=== PATIENT | male | born 1945 | race Caucasian/White ===

== ENCOUNTER 2020-11-03 08:57 | Emergency (ER) | payer OTHER ==
--- OUTSIDE RECORDS SUMMARY | 2020-11-03 09:00 | XMS REPORT | Continuity of Care Document ---
:[address] [facility] t Address [address] [place] [address] Care Team Providers Name Role Phone Jorge Boykin Primary Care Physician Rema RN Attending Clinician Unavailable Jose FORD, Gene Attending Clinician Payers Payer Name Policy Type Policy Effective Date Expiration Source Number Date MEDICAREMEDICARE PART [id number] 2009 Un iversity of A & 00:00:00 [place] [facility] [id number] 2009- [employer] [id number] BRIEN PEREZ [id number] Problems Condition Condition Condition Status Onset Resolution Last Treating Co mments Source Name Details Category Date Date Treatment Clinician Date PAD PAD Disease Active Univers (periphera (periphera 2-06 it y of l artery l artery 00:00: [place] disease) disease) 00 Medica l Branch CAD CAD Disease Active Univers (coronary (coronary 2-06 ity of artery artery 00:00: [place] disease) disease) 00 Medica l Branch HTN HTN Disease Active Univers (hypertens (hypertens 2-06 it y of ion) ion) 00:00: [place] 00 Medical Branch Asymptomat Asymptomat Disease Active U nivers ic ic 2-06 ity of varicose varicose 00:00: [place] veins veins 00 Medical Branch Allergies, Adverse Reactions, Alerts This patient has no known allergies or adverse reactions. Social History Social Habit Start Date Stop Date Quantity Comments Source History of tobacco Cigarette Smoker University of use [facility] Exposure to Not sure University of SARS-CoV-2 (event) [facility] Cigarettes smoked 2020-11-02 2020-11-02 Univers ity of current (pack per 00:00:00 00:00:00 [place] ) - Reported Branch Tobacco use and 2020-11-02 2020-11-02 Never used Universit y of exposure 00:00:00 00:00:00 [facility] Alcohol intake 2020-11-02 2020-11-02 Current University of 00:00:00 00:00:[address] non-[address]inker of [facility] alcohol Branch (finding) Sex Ass[birth year] Universit y of 00:00:00 00:00:00 [facility] Smoking Status Start Date Stop Date Source Current every day smoker 2020-11-02 00:00:00 Uni versity of [facility] Medications Ordered Filled Start Stop Current Ordering Indication Dosage Frequency Signature Comments Components Source Medication Medication Date Date Medication? Clinician (SIG) Name Name tamsulosin Yes Take by Uni vers 0.4 mg 24 5-04 mouth ity of hr capsule 18:42: daily. [address] traZODone Yes 50mg Take 50 mg Un melissa 50 mg 5-04 by mouth ity of tablet 18:42: at [place] [address] bedtime. Medical Branch ASPIRIN Yes 1{tbl} Take 1 Univer s (ASPIR-81 5-04 tablet by ity o f ORAL) 18:31: mouth [place] 07 daily. Medical Branch gabapentin 2020- Yes Tarsal 100mg Take 1 U nivers 100 mg 5-04 06-04 tunnel capsule by ity of capsule 00:00: 04:59 syndrome of mouth 3 [place] 00 :00 both lower (three) Medica l extremities times Branch daily for 30 days. donepeziL Yes 10mg Take 10 mg Un melissa 10 mg 4-24 by mouth ity of tablet 00:00: daily. [place] [facility] memantine Yes 10mg Take 10 mg Un melissa 10 mg 4-24 by mouth ity of tablet 00:00: daily. Medical Branch cilostazol Yes 100mg Take 100 Un melissa 100 mg 6-26 mg by ity of tablet 15:56: mouth 2 [place] 01 (two) Medical times Branch daily. hydroCHLORO Yes 1{capsu Take 1 U nivers thiazide 2-03 le} capsule by ity o f 12.5 mg 00:00: mouth [place] capsule 00 daily. Medical Branch quinapril Yes 1{tbl} Take 1 Univ ers 40 mg 2-03 tablet by ity of tablet 00:00: mouth [place] 00 daily. Medical Branch sotalol 80 Yes 1.5{tbl Take 1.5 Univers mg tablet 2-03 } tablets by ity of 00:00: mouth [place] 00 daily. Medical Branch LORazepam 2 Yes 1{tbl} Take 1 Un melissa mg tablet 1-29 tablet by ity o f 00:00: mouth as [place] 00 needed. Medical Branch ranitidine 2016-06 Yes 1{tbl} Take 1 Uni vers 300 mg 2-04 tablet by ity of tablet 00:00: mouth [place] 00 daily. Medical Branch allopurinol 2016-06 Yes 1{tbl} Take 1 Un melissa 300 mg 1-21 tablet by ity of tablet 00:00: mouth [place] 00 every Medical other day. Branch Procedures This patient has no known procedures. Plan of Care Planned Activity Planned Date Details Comments Source Future Scheduled 2021-02-[address] [facility] Test 00:00:00 (Season Ended) [code Medical Branch = INFLUENZA VACCINE (Season Ended)] Future Scheduled 2009 [facility] Test 00:[facility]:00 Wellness Visit Medical [facility] (procedure) [code = [id number]] Future Scheduled 2009 [facility] [place] [facility]00 65+ (1 of 1 - PPSV23) Medica l Branch [code = PNEUMOCOCCAL VACCINES 65+ (1 of 1 - PPSV23)] Future Scheduled 1999 Screening for [facility] Test 00:00:00 malignant neoplasm of Medica l Branch lung (procedure) [code = [id number]] Future Scheduled 1994 [facility] [place] [facility]:00 Vaccine (SHINGRIX) (1 Medica l Branch of 2) [code = Zoster Recombinant Vaccine (SHINGRIX) (1 of 2)] Future Scheduled 1963 DTaP,Tdap,and Td [facility] of [place] Test 00:00:00 Vaccines (1 - Tdap) Medical Branch [code = DTaP,Tdap,and Td Vaccines (1 - Tdap)] Future Scheduled 1962 Hepatitis C screening [facility] [place] Test 00:00:00 (procedure) [code = Medical Branch [id number]] Future Scheduled 1960 SARS-CoV-2 (COVID-19) [facility] [place] Test 00:00:00 Vaccine (1) [code = Medical Branch SARS-CoV-2 (COVID-19) Vaccine (1)] Future Scheduled 1956 Depression screening [facility] [place] Test 00:00:00 (procedure) [code = Medical Branch [id number]] Encounters Start End Encounter Admission Attending Care Care Encounter Source Date/Time Date/Time Type Type Clinicians Facility Department ID 2020-11-03 2020-11-03 Nurse JONNY Hodgson [id number] 00:00:00 00:00:00 Triage Laura DEL VALLE [id number] [facility] [id number] 2020-10-31 2020-10-31 Office MERCEDES Garcia [id number] 13:14:24 15:07:14 Visit Bib De Anda [id number] [place] [id number] Professalexandro [id number] [facility] Building Results This patient has no known results.
--- NOTE | 2020-11-03 09:59 | RAD REPORT ---
EXAM DESCRIPTION: CT - Head Brain Wo Cont - 11/03/2020 9:47 am CLINICAL HISTORY: Visual disturbance COMPARISON: 2017 TECHNIQUE: Computed axial tomography of the head was obtained. IV contrast was not requested. All CT scans are performed using dose optimization technique as appropriate and may include automated exposure control or mA/KV adjustment according to patient size. FINDINGS: An intracranial bleed is not seen . The ventricles are normal in caliber. No extra-axial fluid collection is noted. Mild low-density areas within periventricular, deep and subcortical white matter likely represent is chemic changes secondary to small vessel disease. Fluid within the sinuses/ mastoids is not seen. Mucus retention cysts right maxillary sinus IMPRESSION: No acute intracranial abnormality is seen. If patient's symptoms persist MRI of the bra in would be recommended.
[2020-11-03] MEDS ORDERED: FOLIC ACID 5 MG/ML VIAL ONE (10:10)
[2020-11-03] MEDS ORDERED: NA CHLORIDE 0.9% 1,000 ML ONE (10:10)
[2020-11-03 10:40] LABS: Absolute Lymphocytes (CBC) 2.1 K/uL (0.7-4.9); Hematocrit 44.5 % (39.6-49.0); Lymphocytes % 27.4 % (15.3-44.8); MPV 7.1 fL (7.6-11.3); RBC Red Blood Cell Count 4.25 M/uL (4.33-5.43)
--- NOTE | 2020-11-03 10:44 | RAD REPORT ---
EXAM DESCRIPTION: MRI - Brain Wo Cont - 11/03/2020 10:24 am CLINICAL HISTORY: Vision loss COMPARISON: Head CT November 03, 2020 TECHNIQUE: Axial, sagittal, and coronal magnetic images of the brain were obtained. Contrast was not requested FINDINGS: Mild to moderate signal is present within periventricular and deep white matter bilaterall y probably ischemic changes secondary to small vessel disease. Mild signal is present within the hippocampal gyri bilaterally which may indicate a mild mesial tempo ral sclerosis. Diffusion-weighted/ADC mapping does not reveal evidence of acute infarction. The ventricles are normal caliber. An extra-axial fluid collection is not present Fluid within the sinuses/mastoids is not noted. Mucus retention cysts right maxillary sinus IMPRESSION: No acute intracranial abnormality is displayed
[2020-11-03 11:00] LABS: Protime INR 1.08
[2020-11-03 11:05] LABS: ALT/SGPT 29 U/L (12-78); AST/SGOT 20 U/L (15-37); Albumin 3.4 g/dL (3.4-5.0); Alkaline Phosphatase 106 U/L (45-117); BUN Blood Urea Nitrogen 20 mg/dL (7-18); Bicarbonate 30 mmol/L (21-32); Bilirubin Direct 0.2 mg/dL (0-0.2); Bilirubin Total 1.2 mg/dL (0.2-1.0); Glucose Level 96 mg/dL (74-106); Magnesium 2.2 mg/dL (1.8-2.4); NT PRO-BNP 695 pg/mL (<450); Protein, Total 7.1 g/dL (6.4-8.2); Sodium Level 141 mmol/L (136-145); Troponin (Emerg Dept Use Only) < 0.02 ng/mL (0.0-0.045)
--- NOTE | 2020-11-03 12:15 | RAD REPORT ---
EXAM DESCRIPTION: Jeremiah Single View11/03/2020 11:17 am CLINICAL HISTORY: CVA COMPARISON: 2016 FINDINGS: Lungs are hyperaerated. The lungs appear clear of acute infiltrate. The heart is probably upper limits normal size IMPRESSION: No acute abnormalities displayed
--- NOTE | 2020-11-03 12:35 | ER ---
Nurse's Notes [facility] Name: Sergio Ramirez Age: 75 yrs Sex: Male : 1945 Arrival Date: 11/03/2020 Time: 09:02 Bed 17 Private MD: Diagnosis: Blindness, left eye, normal vision right eye;Essential (primary) hypertension Presentation: 11/03 09:25 Chief complaint: Spouse and/or significant other states: Unable to see out of L eye ss that began around 0830- 9 PM yesterday evening. Denies headache/ weakness. Coronavirus screen: Client denies travel out of the [place] in the last 14 days. Ebola Screen: Patient denies exposure to infectious person. Patient denies travel to an Ebola-affected area in the 21 days before illness onset. Initial Sepsis Screen: Does the patient meet any 2 criteria? No. Patient's initial sepsis screen is negative. Does the patient have a suspected source of infection? No. Patient's initial sepsis screen is negative. Risk Assessment: Do you want to hurt yourself or someone else? Patient reports no desire to harm self or others. Onset of symptoms was November 02, 2020 at 08:30. 09:25 Method Of Arrival: Ambulatory ss 09:25 Acuity: GENESIS 3 ss Historical: - Allergies: 09:29 No Known Allergies; ss - PMHx: 09:29 Gout; Hyperlipidemia; Hypertension; ss - PSHx: 09:29 cardiac stents; ss - Immunization history:: Adult Immunizations up to date. - Social history:: Smoking status: Patient reports the use of cigarette tobacco products, 2 cigarettes/ day . Screenin:32 Abuse screen: Denies threats or abuse. Nutritional screening: No deficits noted. ll1 Tuberculosis screening: No symptoms or risk factors identified. Fall Risk Secondary diagnosis (15 points) vision impairment. IV access (20 points). Gait- Impaired (20 pts.). Total Yost Fall Scale indicates High Risk Score (45 or more points). Fall prevention measures have been instituted. Side Rails Up X 2 Placed Close to Nursing Station Frequent Obs/Assessments Occuring Family Present and informed to notify staff if the need to leave the bedside As available patient and family educated on Fall Prevention Program and Strategies. Assessment: 10:33 General: Appears in no apparent distress. Behavior is calm, cooperative, appropriate ll1 for age. Pain: Denies pain. EENT: Eyes no vision L eye. Reports no vision L eye. 11:30 Reassessment: No changes from previously documented assessment. Patient and/or family ll1 updated on plan of care and expected duration. Pain level reassessed. 12:30 Reassessment: No changes from previously documented assessment. Patient and/or family ll1 updated on plan of care and expected duration. Pain level reassessed. Vital Signs: 09:25 BP 125 / 79; Pulse 57; Resp 18; Temp 97.9(TE); Pulse Ox 98% on R/A; Weight 88.45 kg; ss Height 6 ft. 4 in. (193.04 cm); Pain 0/10; 12:56 BP 183 / 82; Pulse 56; Resp 17; Pulse Ox 98% ; Pain 0/10; ll1 09:25 Body Mass Index 23.74 (88.45 kg, 193.04 cm) ED Course: 09:02 Patient arrived in ED. mr 09:28 Triage completed. ss 09:29 Arm band placed on left wrist. ss 09:30 Leah Wellington, BOUCHRA is Primary Nurse. ll1 09:33 Ken Dominguez MD is Attending Physician. dariela 09:47 CT Head Brain wo Cont In Process Unspecified. EDMS 10:15 Brain Wo Cont In Process Unspecified. EDMS 10:32 Patient has correct armband on for positive identification. Bed in low position. Call ll1 light in reach. Side rails up X 1. lead developer on. Pulse ox on. NIBP on. 10:34 Inserted saline lock: 20 gauge in right antecubital area, using aseptic technique. mt Blood collected. 11:16 XRAY Chest (1 view) In Process Unspecified. EDMS 11:56 Basic Metabolic Panel Sent. sv 11:57 CBC with Diff Sent. sv 11:57 LFT's Sent. sv 12:34 Walter Galarza MD is Referral Physician. dariela 12:55 IV discontinued, intact, bleeding controlled, No redness/swelling at site. Pressure ll1 dressing applied. 12:57 No provider procedures requiring assistance completed. ll1 Administered Medications: 10:35 Drug: foLIC Acid 1 mg Route: IVPB; Site: right antecubital; ll1 12:52 Follow up: Response: No adverse reaction; IV Status: Completed infusion; IV Intake: ll1 0.2ml 10:35 Drug: NS 0.9% 1000 ml Route: IV; Rate: 1 bolus; Site: right antecubital; ll1 12:52 Follow up: Response: No adverse reaction; RASS: Alert and Calm (0); IV Status: ll1 Completed infusion; IV Intake: 1000ml 12:50 Drug: Aspirin Chewable Tablet 324 mg Route: PO; ll1 12:53 Follow up: Response: No adverse reaction ll1 Intake: 12:52 IV: 0ml; Total: 0ml. ll1 12:52 IV: 1000ml; Total: 1000ml. ll1 Outcome: 12:35 Discharge ordered by . dariela 12:57 Discharged to home ambulatory. ll1 12:57 Condition: stable 12:57 Discharge instructions given to patient, family, Instructed on discharge instructions, follow up and referral plans. Demonstrated understanding of instructions, follow-up care. 12:57 Patient left the ED. 1 Signatures: Dispatcher [employer] Maggie Jonas RN RN sv Anderson, Corey, MD MD cha Rivera, Maggie Nunes, Alison Carcamo RN, mt, Lynsay, RN RN 1
--- NOTE | 2020-11-03 12:35 | EDPHYS ---
Physician Documentation [facility] Name: Sergio Ramirez Age: 75 yrs Sex: Male : 1945 Arrival Date: 11/03/2020 Time: 09:02 Bed 17 Private MD: MIGDALIA Physician Ken Dominguez HPI: 11/03 12:19 This 75 yrs old Male presents to ER via Ambulatory with complaints of High dariela Blood Pressure, Eye Problem. 12:19 The patient has elevated blood pressure and discovered this at home. Onset: The dariela symptoms/episode began/occurred 1 day(s) ago. Modifying factors: The symptoms are aggravated by NOTHING, The symptoms are alleviated by NOTHING. Associated signs and symptoms: The patient has no apparent associated signs or symptoms. Severity of symptoms: At its worst the blood pressure was mild, in the emergency department the blood pressure is unchanged. The patient has not experienced similar symptoms in the past. Historical: - Allergies: : No Known Allergies; ss - PMHx: : Gout; Hyperlipidemia; Hypertension; ss - PSHx: : cardiac stents; ss - Immunization history:: Adult Immunizations up to date. - Social history:: Smoking status: Patient reports the use of cigarette tobacco products, 2 cigarettes/ day . ROS: 12:21 Constitutional: Negative for fever, chills, and weight loss, ENT: Negative for injury, dariela pain, and discharge, Neck: Negative for injury, pain, and swelling, Cardiovascular: Negative for chest pain, palpitations, and edema, Respiratory: Negative for shortness of breath, cough, wheezing, and pleuritic chest pain, Abdomen/GI: Negative for abdominal pain, nausea, vomiting, diarrhea, and constipation, Back: Negative for injury and pain, : Negative for injury, bleeding, discharge, and swelling, MS/Extremity: Negative for injury and deformity, Skin: Negative for injury, rash, and discoloration, Neuro: Negative for headache, weakness, numbness, tingling, and seizure, Psych: Negative for depression, anxiety, suicide ideation, homicidal ideation, and hallucinations, Allergy/Immunology: Negative for hives, rash, and allergies, Endocrine: Negative for neck swelling, polydipsia, polyuria, polyphagia, and marked weight changes, Hematologic/Lymphatic: Negative for swollen nodes, abnormal bleeding, and unusual bruising. 12:21 Eyes: Positive for vision loss. Exam: 12:21 Constitutional: This is a well developed, well nourished patient who is awake, alert, dariela and in no acute distress. Head/Face: Normocephalic, atraumatic. Eyes: Pupils equal round and reactive to light, extra-ocular motions intact. Lids and lashes normal. Conjunctiva and sclera are non-icteric and not injected. Cornea within normal limits. Periorbital areas with no swelling, redness, or edema. ENT: Nares patent. No nasal discharge, no septal abnormalities noted. Tympanic membranes are normal and external auditory canals are clear. Oropharynx with no redness, swelling, or masses, exudates, or evidence of obstruction, uvula midline. Mucous membranes moist. Neck: Trachea midline, no thyromegaly or masses palpated, and no cervical lymphadenopathy. Supple, full range of motion without nuchal rigidity, or vertebral point tenderness. No Meningismus. Chest/axilla: Normal chest wall appearance and motion. Nontender with no deformity. No lesions are appreciated. Cardiovascular: Regular rate and rhythm with a normal S1 and S2. No gallops, murmurs, or rubs. Normal PMI, no JVD. No pulse deficits. Respiratory: Lungs have equal breath sounds bilaterally, clear to auscultation and percussion. No rales, rhonchi or wheezes noted. No increased work of breathing, no retractions or nasal flaring. Abdomen/GI: Soft, non-tender, with normal bowel sounds. No distension or tympany. No guarding or rebound. No evidence of tenderness throughout. Back: No spinal tenderness. No costovertebral tenderness. Full range of motion. Male : Normal genitalia with no discharge or lesions. Skin: Warm, dry with normal turgor. Normal color with no rashes, no lesions, and no evidence of cellulitis. MS/ Extremity: Pulses equal, no cyanosis. Neurovascular intact. Full, normal range of motion. Neuro: Awake and alert, GCS 15, oriented to person, place, time, and situation. Cranial nerves II-XII grossly intact. Motor strength 5/5 in all extremities. Sensory grossly intact. Cerebellar exam normal. Normal gait. Psych: Awake, alert, with orientation to person, place and time. Behavior, mood, and affect are within normal limits. Vital Signs: 09:25 BP 125 / 79; Pulse 57; Resp 18; Temp 97.9(TE); Pulse Ox 98% on R/A; Weight 88.45 kg; ss Height 6 ft. 4 in. (193.04 cm); Pain 0/10; 12:56 BP 183 / 82; Pulse 56; Resp 17; Pulse Ox 98% ; Pain 0/10; ll1 09:25 Body Mass Index 23.74 (88.45 kg, 193.04 cm) MDM: 09:35 Patient medically screened. dariela 12:37 Differential diagnosis: hypertensive crisis, CVA, intracerebral hemorrhage. Data dariela reviewed: vital signs, nurses notes, lab test result(s), EKG, radiologic studies, CT scan, MRI. Data interpreted: security monitor: rate is 57 beats/min, rhythm is regular, Pulse oximetry: on room air is 98 %. Test interpretation: by ED physician or midlevel provider: ECG, plain radiologic studies. Counseling: I had a detailed discussion with the patient and/or guardian regarding: the historical points, exam findings, and any diagnostic results supporting the discharge/admit diagnosis, lab results, radiology results, the need for outpatient follow up, for definitive care, an opthalmologist. 12:39 Physician consultation: Walter Galarza MD and will see patient in office, later today. [facility] 11/03 09:33 Order name: Basic Metabolic Panel 11/03 09:33 Order name: CBC with Diff 11/03 09:33 Order name: LFT's 11/03 09:33 Order name: Magnesium; Complete Time: 11:58 11/03 09:33 Order name: NT PRO-BNP; Complete Time: 11:58 11/03 09:33 Order name: PT-INR; Complete Time: 11:58 11/03 09:33 Order name: Troponin (emerg Dept Use Only); Complete Time: 11:58 11/03 09:33 Order name: Basic Metabolic Panel; Complete Time: 11:58 EDKS 11/03 09:33 Order name: CBC with Automated Diff; Complete Time: 11:58 EDKS 11/03 09:33 Order name: Liver (Hepatic) Function; Complete Time: 11:58 EDKS 11/03 12:23 Order name: Sed Rate [facility] 11/03 12:23 Order name: CRP [facility] 11/03 12:23 Order name: Sedimentation Rate, Estephaniaren EDKS 11/03 12:23 Order name: C-Reactive Protein EDKS 11/03 09:33 Order name: XRAY Chest (1 view) 11/03 09:33 Order name: EKG; Complete Time: 09:34 ss 11/03 09:33 Order name: Cardiac monitoring; Complete Time: 10:58 ss 11/03 09:33 Order name: EKG - Nurse/Tech; Complete Time: 10:58 ss 11/03 09:33 Order name: IV Saline Lock; Complete Time: 10:35 ss 11/03 09:33 Order name: Labs collected and sent; Complete Time: 10:35 ss 11/03 09:33 Order name: O2 Per Protocol; Complete Time: 09:47 ss 11/03 09:33 Order name: O2 Sat Monitoring; Complete Time: 09:47 ss 11/03 09:33 Order name: CT Head Brain wo Cont; Complete Time: 10:42 ss 11/03 10:05 Order name: Brain Wo Cont; Complete Time: 10:52 EDMS Administered Medications: 10:35 Drug: foLIC Acid 1 mg Route: IVPB; Site: right antecubital; ll1 12:52 Follow up: Response: No adverse reaction; IV Status: Completed infusion; IV Intake: ll1 0.2ml 10:35 Drug: NS 0.9% 1000 ml Route: IV; Rate: 1 bolus; Site: right antecubital; ll1 12:52 Follow up: Response: No adverse reaction; RASS: Alert and Calm (0); IV Status: ll1 Completed infusion; IV Intake: 1000ml 12:50 Drug: Aspirin Chewable Tablet 324 mg Route: PO; ll1 12:53 Follow up: Response: No adverse reaction ll1 Disposition: 11/03/20 12:35 Discharged to Home. Impression: Blindness, left eye, normal vision right eye, Essential (primary) hypertension. - Condition is Stable. - Discharge Instructions: Hypertension, Visual Disturbances, Hypertension, [id number], Managing Your Hypertension. - Medication Reconciliation Form, Thank You Letter, Antibiotic Education, Prescription Opioid Use form. - Follow up: Walter Galarza MD; When: Upon discharge from the Emergency Department; Reason: Recheck today's complaints, Continuance of care, Re-evaluation by your physician. - Problem is new. - Symptoms are unchanged. Signatures: Dispatcher [employer] [facility] Ken Dominguez MD MD cha Smirch, Shelby, RN RN ss Leah Wellington RN RN ll1 Corrections: (The following items were deleted from the chart) 10:05 09:35 MR STROKE PROTOCOL+MRI.RAD.BRZ ordered. [facility] 12:57 12:35 11/03/2020 12:35 Discharged to Home. Impression: Blindness, left eye, normal ll1 vision right eye; Essential (primary) hypertension. Condition is Stable. Forms are Medication Reconciliation Form, Thank You Letter, Antibiotic Education, Prescription Opioid Use. Follow up: Walter Galarza; When: Upon discharge from the Emergency Department; Reason: Recheck today's complaints, Continuance of care, Re-evaluation by your physician. Problem is new. Symptoms are unchanged. dariela
[2020-11-03] MEDS ORDERED: ASPIRIN 81 MG CHEWABLE TABLET ONE (13:02)
[2020-11-03 13:04] VITALS: TEMP 97.9; O2SAT 98
[2020-11-03 13:06] VITALS: BP 183/82
--- NOTE | 2020-11-04 10:39 | EKG ---
Test Date: 2020-11-03 Test Time: 10:49:40 Religious Education Coordinator: JESSICA MEASUREMENT RESULTS: Intervals: Rate: 53 NJ: 182 QRSD: 104 QT: 500 QTc: 469 [place]: P: 74 NJ: 182 QRS: 47 T: 24 INTERPRETIVE STATEMENTS: Sinus bradycardia with occasional premature ventricular complexes Nonspecific ST abnormality Abnormal ECG Compared to ECG 11/03/2020 10:49:18 Ventricular premature complex(es) now present ST (T wave) deviation now present Electronically Signed On 11-04-20 10:36:49 CDT by Sherwin Smith
== END 2020-11-03 12:57 | disposition home or self-care (01) ==
LOC: ER 08:57
DX: I10 Essential (primary) hypertension (principal); F17.210 Nicotine dependence, cigarettes, uncomplicated; Z95.818 Presence of other cardiac implants and grafts
CPT/HCPCS: 96365; 93005; 85025; 80048; 36415; 83735; 85610; 80076; 85652; 84484; 83880; 86140; 70450; 71045; 70551; 99284; 96366; J7030; 93880; 96360; U0003

== ENCOUNTER 2020-11-03 18:24 | Emergency (ER) | payer OTHER ==
--- OUTSIDE RECORDS SUMMARY | 2020-11-03 18:40 | XMS REPORT | Continuity of Care Document ---
:1945 Author Organization [facility] t Address [address] [place] [address] Care Team Providers Name Role Phone Jorge Boykin Primary Care Physician Rema RN Attending Clinician Unavailable Jose FORD, Gene Attending Clinician Payers Payer Name Policy Type Policy Effective Date Expiration Source Number Date MEDICAREMEDICARE PART [id number] 2009 Un iversity of A & 00:00:00 [facility] [id number] 2009- formerly [facility] [phone]. [id number] [id number] Problems Condition Condition Condition Status Onset Resolution Last Treating Co mments Source Name Details Category Date Date Treatment Clinician Date PAD PAD Disease Active Univers (periphera (periphera 2-06 it y of l artery l artery 00:00: [place] disease) disease) 00 Medica l Branch CAD [...] of tobacco Cigarette Smoker University of use [facility] Exposure to Not sure [facility] SARS-CoV-2 (event) [facility] Cigarettes smoked 2020-11-02 2020-11-02 Univers ity of current (pack per 00:00:00 00:00:00 [place] ) - Reported Branch Tobacco use and 2020-11-02 2020-11-02 Never used Universit y of exposure 00:00:00 00:00:[address] [facility] Alcohol intake 2020-11-02 2020-11-02 Current University of 00:00:00 00:00:00 non-drinker of [facility] alcohol Branch (finding) Sex Ass[birth year] Universit y of 00:00:00 00:00:[address] [facility] Smoking Status Start Date Stop Date Source Current every day smoker 2020-11-02 00:00:[address] [facility] Medications Ordered Filled Start Stop Current Ordering Indication Dosage Frequency Signature Comments Components Source Medication Medication Date Date Medication? Clinician (SIG) Name Name tamsulosin Yes Take by Uni vers 0.4 mg 24 5-04 mouth ity of hr capsule 18:42: daily. [address] traZODone Yes 50mg Take 50 mg Un melissa 50 mg 5-04 by mouth ity of tablet 18:42: at [place] [address] bedtime. Medical Branch ASPIRIN Yes 1{tbl} Take 1 Univer s (ASPIR-81 5-04 tablet by ity o f ORAL) 18:31: mouth [place] 07 daily. Medical Branch gabapentin 2020- Yes Tarsal 100mg Take 1 U nivers 100 mg 5-04 06-04 tunnel capsule by ity of capsule 00:00: 04:59 syndrome of mouth 3 [place] 00 :00 both lower (three) Medica l extremities times Branch daily for 30 days. donepeziL Yes 10mg Take 10 mg Un melissa 10 mg 4-24 by mouth ity of tablet 00:00: daily. [place] [facility] memantine Yes 10mg Take 10 mg Un [...] Comments Source Future Scheduled 2021-02-28 INFLUENZA VACCINE [facility] [place] [facility] Test 00:00:00 (Season Ended) [code Medical Branch = INFLUENZA VACCINE (Season Ended)] Future Scheduled 2009 Medicare Annual [facility] Test 00:00:00 Wellness Visit Medical [facility] (procedure) [code = 893688990917100] Future Scheduled 2009 [facility]CCAL [facility]00 65+ (1 of 1 - PPSV23) Medica l Branch [code = PNEUMOCOCCAL VACCINES 65+ (1 of 1 - PPSV23)] Future Scheduled 1999 Screening for [facility] Test 00:00:00 malignant neoplasm of Medica l Branch lung (procedure) [code = [id number]] Future Scheduled 1994 [facility]00 Vaccine (SHINGRIX) (1 Medica l Branch of 2) [code = Zoster Recombinant Vaccine (SHINGRIX) (1 of 2)] Future Scheduled 1963 DTaP,Tdap,and Td [facility] [place] Test 00:00:00 Vaccines (1 - Tdap) Medical Branch [code = DTaP,Tdap,and Td Vaccines (1 - Tdap)] Future Scheduled 1962 Hepatitis C screening [facility] [place] Test 00:00:00 (procedure) [code = Medical Branch [id number]] Future Scheduled 1960 SARS-CoV-2 (COVID-19) [facility] [place] Test 00:00:00 Vaccine (1) [code = Medical Branch SARS-CoV-2 (COVID-19) Vaccine (1)] Future Scheduled 1956 Depression screening [facility] [place] Test 00:00:00 (procedure) [code = Medical Branch [id number]] Encounters Start End Encounter Admission Attending Care Care Encounter Source Date/Time Date/Time Type Type Clinicians Facility Department ID 2020-11-03 2020-11-03 Nurse JONNY Hodgson [id number] 00:00:00 00:00:00 Triage Laura DEL [facility]LE [id number] [facility] [id number] 2020-10-31 2020-10-31 Office MERCEDES Garcia [id number] 13:14:24 15:07:14 Visit Bib De Anda [id number] [place] [id number] Profkorina [id number] [facility] 092 Building Results This patient has no known results.
--- NOTE | 2020-11-03 18:51 | ER ---
Nurse's Notes [facility] Name: Sergio Ramirez Age: 75 yrs Sex: Male : 1945 Arrival Date: 11/03/2020 Time: 18:30 Bed 13 Private MD: Diagnosis: Blindness, left eye, normal vision right eye;Central retinal vein occlusion, left eye;Essential (primary) hypertension;Tobacco use Presentation: 11/03 18:33 Chief complaint: Patient states: left eye vision changes that are black and castorena, was sv seen here and was told did not have a stroke. Sent to Dr Galarza and he told him to come back to the ER. Coronavirus screen: Client denies travel out of the [place] in the last 14 days. At this time, the client does not indicate any symptoms associated with coronavirus-19. Ebola Screen: No symptoms or risks identified at this time. Risk Assessment: Do you want to hurt yourself or someone else? Patient reports no desire to harm self or others. Onset of symptoms was November 02, 2020 at 20:00. 18:33 Method Of Arrival: Wheelchair sv 18:33 Acuity: GENESIS 2 sv 21:56 Initial Sepsis Screen: Does the patient meet any 2 criteria? No. Patient's initial iw sepsis screen is negative. Does the patient have a suspected source of infection? No. Patient's initial sepsis screen is negative. Historical: - Allergies: 18:35 No Known Allergies; sv - PMHx: 18:35 Gout; Hyperlipidemia; Hypertension; sv - PSHx: 18:35 cardiac stents; sv - Immunization history:: Client reports receiving the 2nd dose of the Covid vaccine, Client reports receiving the 1st dose of the Covid vaccine. - Social history:: Smoking status: Patient reports the use of cigarette tobacco products, smokes one-half pack cigarettes per day. - Family history:: not pertinent. Screenin:02 Abuse screen: Denies threats or abuse. Nutritional screening: No deficits noted. bb Tuberculosis screening: No symptoms or risk factors identified. Fall Risk None identified. Assessment: 21:02 General: Appears in no apparent distress. slender, Behavior is calm, cooperative. Pain: bb Denies pain. Neuro: Level of Consciousness is awake, alert, obeys commands, Oriented to person, place, time, situation. Cardiovascular: Capillary refill < 3 seconds Patient's skin is warm and dry. Respiratory: Respiratory effort is even, unlabored, Respiratory pattern is regular. GI: No signs and/or symptoms were reported involving the gastrointestinal system. EENT: Reports loss of vision in left eye. Derm: Skin is fragile, is thin, Skin is dry, Skin is pink, Skin temperature is warm. Musculoskeletal: Circulation, motion, and sensation intact. 21:59 Reassessment: EMS at bedside for transfer of pt to [facility]. Pt is A\T\O x 4, bb resp unlabored, IV site intact, patent with fluids infusing. Vital Signs: 18:35 BP 175 / 132; Pulse 75; Resp 18; Pulse Ox 99% ; Weight 90.72 kg; Height 6 ft. 4 in. sv (193.04 cm); 20:55 BP 192 / 99; Pulse 60; Resp 18; Temp 98.0; Pulse Ox 100% on R/A; mw2 21:04 BP 172 / 99; Pulse 57; Resp 16 S; Temp 98.3(O); Pulse Ox 94% on R/A; bb 18:35 Body Mass Index 24.34 (90.72 kg, 193.04 cm) sv ED Course: 18:30 Patient arrived in ED. mr 18:34 \T\[address] Dominguez with Yuliana Avalos from the [facility]. \T\[address] Kee the vascular surgeon applications systems engineer for [facility] With Dr. Dominguez for patient transfer consultation. \T\[address] Novoa the Hospitalist applications systems engineer for [facility] With Dr. Domingeuz for patient transfer consultation. 18:35 Triage completed. sv 18:35 Arm band placed on. sv 18:36 Ken Dominguez MD is Attending Physician. [facility] 18:55 administrative approval given by Melanie Avalos/ patient has been accepted to [address] bed 1142/ Dr. Novoa accepted the patient in transfer/ report to be called to [phone]. waiting for patient's covid to result. 20:29 Inserted saline lock: 20 gauge in left antecubital area, using aseptic technique. [facility] 21:02 Patient has correct armband on for positive identification. Bed in low position. Call bb light in reach. Adult w/ patient. Pulse ox on. NIBP on. 21:02 No provider procedures requiring assistance completed. bb 21:02 Patient transferred, IV remains in place. bb Administered Medications: 20:49 Drug: PlaVIX (clopidogrel) 75 mg Route: PO; iw 21:54 Follow up: Response: No adverse reaction iw 20:50 Drug: NS 0.9% 500 ml Route: IV; Rate: bolus; Site: left antecubital; iw 21:54 Follow up: IV Status: Completed infusion iw 21:54 Not Given (Physician Discretion): NS 0.9% 1000 ml IV at 125 ml/hr continuous iw Outcome: 18:51 ER care complete, transfer ordered by . [facility] 21:55 Transferred by ground EMS EMS. to [facility], Transfer form iw completed. X-rays sent w/ patient. 21:55 Condition: good 21:55 Discharge instructions given to patient, family, Instructed on the need for transfer. 22:01 Patient left the ED. bb Signatures: Maggie Cantu, RN RN Ken Trevino MD MD cha Rivera, Mary mr Farheen Huerta, RN RN Michelle Daly RN BOUCHRA Madelaine Jara mw2 Marleni Reynaga Corrections: (The following items were deleted from the chart) 18:52 18:33 Chief complaint: Patient states: left eye vision changes that are black and castorena, sv was seen here and was told did not have a stroke. Sent to Dr Galarza and he told him to come back to the ER. sv 18:52 18:33 Acuity: GENESIS 3 sv sv 20:31 20:31 Inserted saline lock: 20 gauge in left antecubital area, using aseptic technique. mw2 mw2
--- NOTE | 2020-11-03 18:51 | EDPHYS ---
Physician Documentation [facility] Name: Sergio Ramirez Age: 75 yrs Sex: Male : 1945 Arrival Date: 11/03/2020 Time: 18:30 Bed 13 Private MD: Ken Soto HPI: 11/03 18:39 This 75 yrs old Male presents to ER via Wheelchair with complaints of dariela Abnormal Lab Results. 18:39 loss of vision , last night. Onset: The symptoms/episode began/occurred last night, 1 dariela day(s) ago. Duration: the symptoms are continuous. Aggravated by nothing. Alleviated by nothing. Associated signs and symptoms: Pertinent positives: None. Patient wears glasses. Severity of symptoms: At their worst the symptoms were moderate in the emergency department the symptoms are unchanged. The patient has not experienced similar symptoms in the past. Historical: - Allergies: 18:35 No Known Allergies; sv - PMHx: 18:35 Gout; Hyperlipidemia; Hypertension; sv - PSHx: 18:35 cardiac stents; sv - Immunization history:: Client reports receiving the 2nd dose of the Covid vaccine, Client reports receiving the 1st dose of the Covid vaccine. - Social history:: Smoking status: Patient reports the use of cigarette tobacco products, smokes one-half pack cigarettes per day. - Family history:: not pertinent. ROS: 18:39 Constitutional: Negative for fever, chills, and weight loss, ENT: Negative for injury, dariela pain, and discharge, Neck: Negative for injury, pain, and swelling, Cardiovascular: Negative for chest pain, palpitations, and edema, Respiratory: Negative for shortness of breath, cough, wheezing, and pleuritic chest pain, Abdomen/GI: Negative for abdominal pain, nausea, vomiting, diarrhea, and constipation, Back: Negative for injury and pain, : Negative for injury, bleeding, discharge, and swelling, MS/Extremity: Negative for injury and deformity, Skin: Negative for injury, rash, and discoloration, Neuro: Negative for headache, weakness, numbness, tingling, and seizure, Psych: Negative for depression, anxiety, suicide ideation, homicidal ideation, and hallucinations, Allergy/Immunology: Negative for hives, rash, and allergies, Endocrine: Negative for neck swelling, polydipsia, polyuria, polyphagia, and marked weight changes, Hematologic/Lymphatic: Negative for swollen nodes, abnormal bleeding, and unusual bruising. 18:39 Eyes: Positive for vision loss. Exam: 18:39 Constitutional: This is a well developed, well nourished patient who is awake, alert, dariela and in no acute distress. Head/Face: Normocephalic, atraumatic. ENT: Nares patent. No nasal discharge, no septal abnormalities noted. Tympanic membranes are normal and external auditory canals are clear. Oropharynx with no redness, swelling, or masses, exudates, or evidence of obstruction, uvula midline. Mucous membranes moist. Neck: Trachea midline, no thyromegaly or masses palpated, and no cervical lymphadenopathy. Supple, full range of motion without nuchal rigidity, or vertebral point tenderness. No Meningismus. Chest/axilla: Normal chest wall appearance and motion. Nontender with no deformity. No lesions are appreciated. Cardiovascular: Regular rate and rhythm with a normal S1 and S2. No gallops, murmurs, or rubs. Normal PMI, no JVD. No pulse deficits. Respiratory: Lungs have equal breath sounds bilaterally, clear to auscultation and percussion. No rales, rhonchi or wheezes noted. No increased work of breathing, no retractions or nasal flaring. Abdomen/GI: Soft, non-tender, with normal bowel sounds. No distension or tympany. No guarding or rebound. No evidence of tenderness throughout. Back: No spinal tenderness. No costovertebral tenderness. Full range of motion. Male : Normal genitalia with no discharge or lesions. Skin: Warm, dry with normal turgor. Normal color with no rashes, no lesions, and no evidence of cellulitis. MS/ Extremity: Pulses equal, no cyanosis. Neurovascular intact. Full, normal range of motion. Neuro: Awake and alert, GCS 15, oriented to person, place, time, and situation. Cranial nerves II-XII grossly intact. Motor strength 5/5 in all extremities. Sensory grossly intact. Cerebellar exam normal. Normal gait. Psych: Awake, alert, with orientation to person, place and time. Behavior, mood, and affect are within normal limits. 18:39 Eyes: Periorbital structures: appear normal, no acute changes, Pupils: no acute changes, equal, round, and reactive to light and accomodation, Extraocular movements: no acute changes, Conjunctiva: normal, no acute changes, Corneas: are normal, no acute changes, Sclera: no appreciated abnormality, no acute changes, Anterior chamber: normal, no acute changes, Lids and lashes: appear normal, no acute changes, Visual rae: no vision left eye. Nystagmus: is not appreciated, no acute changes. Vital Signs: 18:35 BP 175 / 132; Pulse 75; Resp 18; Pulse Ox 99% ; Weight 90.72 kg; Height 6 ft. 4 in. sv (193.04 cm); 20:55 BP 192 / 99; Pulse 60; Resp 18; Temp 98.0; Pulse Ox 100% on R/A; mw2 21:04 BP 172 / 99; Pulse 57; Resp 16 S; Temp 98.3(O); Pulse Ox 94% on R/A; bb 18:35 Body Mass Index 24.34 (90.72 kg, 193.04 cm) sv MDM: 18:51 Patient medically screened. [facility] 11/03 20:14 Order name: SARS-COV-2 RT PCR EDMS Administered Medications: 20:49 Drug: PlaVIX (clopidogrel) 75 mg Route: PO; iw 21:54 Follow up: Response: No adverse reaction iw 20:50 Drug: NS 0.9% 500 ml Route: IV; Rate: bolus; Site: left antecubital; iw 21:54 Follow up: IV Status: Completed infusion iw 21:54 Not Given (Physician Discretion): NS 0.9% 1000 ml IV at 125 ml/hr continuous iw Disposition: 11/03/20 18:51 Transfer ordered to [facility]. Diagnosis are Blindness, left eye, normal vision right eye, Central retinal vein occlusion, left eye, Essential (primary) hypertension, Tobacco use. - Reason for transfer: Higher level of care. - Accepting physician is to Dr ragsdale. - Condition is Stable. - Problem is new. - Symptoms have improved. Signatures: Dispatcher [employer] EDMaggie Wesley, Ken Patino RN, MD MD cha Ballard, Brenda, RN RN bb Williams, Irene, RN RN iw Corrections: (The following items were deleted from the chart) 19:34 18:39 CORONAVIRUS+MR.LAB.BRZ ordered. EDMS EDMS 22:01 18:51 11/03/2020 18:51 Transfer ordered to [facility]. bb Diagnosis is Blindness, left eye, normal vision right eye; Central retinal vein occlusion, left eye; Essential (primary) hypertension; Tobacco use. Reason for transfer: Higher level of care. Accepting physician is to Dr ragsdale. Condition is Stable. Problem is new. Symptoms have improved. dariela
[2020-11-03] MEDS ORDERED: CLOPIDOGREL 75 MG TABLET ONE (21:04)
[2020-11-03] MEDS ORDERED: NA CHLORIDE 0.9% 1,000 ML ONE (21:04)
[2020-11-03 22:31] VITALS: BP 172/99; TEMP 98.3; O2SAT 94
== END 2020-11-03 22:01 | disposition short-term general hospital (02) ==
LOC: ER 18:24
DX: H34.8122 Central retinal vein occlusion, left eye, stable (principal); I10 Essential (primary) hypertension; Z72.0 Tobacco use; Z95.818 Presence of other cardiac implants and grafts; Z20.822 Contact with and (suspected) exposure to COVID-19
CPT/HCPCS: 96360; 99285; U0003; J7030

== ENCOUNTER 2020-11-29 10:37 | Inpatient (IN) | payer OTHER ==
--- OUTSIDE RECORDS SUMMARY | 2020-11-29 10:41 | XMS REPORT | Continuity of Care Document ---
:1945 Author Organization [facility] t Address [address] [place] [address] Care Team Providers Name Role Phone Jorge Boykin Primary Care Physician Doctor Unassigned, Name Attending Clinician Unavailable Jose FORD, Gene Attending Clinician Renae Novoa MD Attending Clinician Aniyah Tracy MD Attending Clinician Nick FORD Attending Clinician Emily Brown MD Attending Clinician RENAE NOVOA Attending Clinician Unavailable Rema SHOOK Attending Clinician Unavailable ANIYAH TRACY Admitting Clinician Unavailable Payers Payer Name Policy Type Policy Effective Date Expiration Source Number Date MEDICAREMEDICARE A [id number] SAMANTHA Martinez - [id number] 2009[facility] [id number] 2009 [facility] A & 00:00:00 [facility] [id number] 2009- [facility] [id number] BRIEN PEREZ [id number] Problems Condition Condition Condition Status Onset Resolution Last Treating Co mments Source Name Details Category Date Date Treatment Clinician Date Carotid Carotid Disease Active [facility] stenosis stenosis [facility]04 [facility]: Medical 00 [place] Vision Vision Disease Active [facility] loss, left loss, left 11-04 Pavithra kes - eye eye 00:00: Medical 00 [place] Alzheimer Alzheimer Disease Active [facility] disease disease 11-04 [facility] - 00:[facility]: Medical 00 [place] CAD CAD Disease Active [facility] (coronary (coronary 2-06 [facility] - artery artery 00:00: Medical disease) disease) 00 Center HTN HTN Disease Active [facility] (hypertens (hypertens 2-06 Pavithra kes - ion) ion) 00:00: Medical 00 [place] PAD PAD Disease Active [facility] (periphera (periphera 2-06 Pavithra kes - l artery l artery 00:00: Medica l disease) disease) 00 [place] Asymptomat Asymptomat Disease Active U nivers ic ic 2-06 ity of varicose varicose 00:00: [place] veins veins Medical Branch Allergies, Adverse Reactions, Alerts This patient has no known allergies or adverse reactions. Family History Family Member Diagnosis Comments Start Date Stop Date Source Natural father No Known Problem [facility] Natural mother No Known Problem [facility] Social History Social Habit Start Date Stop Date Quantity Comments Source Sex Assigned At [facility] History of tobacco Cigarette Smoker [facility] use [facility] Exposure to Not sure [facility] SARS-CoV-2 (event) [facility] [place] Cigarettes smoked 2020-11-04 2020-11-04 [facility] - current (pack per 00:00:00 00:00:[address] [facility] day) - Reported Tobacco use and 2020-11-04 2020-11-04 Never used [facility] - exposure 00:00:00 00:00:[address] [facility] Alcohol intake 2020-11-02 2020-11-02 Current University 00:00:00 00:00:00 non-drinker of [facility] alcohol Branch (finding) Smoking Status Start Date Stop Date Source Current every day smoker 2020-11-04 00:00:00 [facility] Medications Ordered Filled Start Stop Current Ordering Indication Dosage Frequency Signature Comments Components Source Medication Medication Date Date Medication? Clinician (SIG) Name Name clopidogreL 2021- Yes 75mg QD Take [address] [facility] (PLAVIX) 75 5-12 05-12 tablet (75 L ukes - mg tablet 00:00: 23:59 mg total) Me dical 00 :00 by mouth Center daily. predniSONE 2020- No Take [address] [facility] (DELTASONE) 5-12 05-21 tablets Luke s - 20 MG 00:00: 23:59 (60 mg Medical tablet 00 :00 total) by Center mouth daily for 3 days, THEN 2 tablets (40 mg total) daily for 3 days, THEN 1 tablet (20 mg total) daily for 3 days. tamsulosin Yes .4mg Take 0.[address] [facility] (FLOMAX) 5-11 mg by [facility] - 0.4 mg Cap 13:49: mouth Medica l 24 hr 34 every Center capsule other day . traZODone Yes 50mg Take [address] (DESYREL) 5-11 by mouth. [facility] - 50 MG 13:49: Medical tablet 34 [place] hydroCHLORO Yes 12.5mg QD Take 12.[address] [facility] thiazide 5-11 mg by [facility] - (MICROZIDE) 13:49: mouth Medic al 12.5 mg 34 daily. Center capsule aspirin 81 Yes 81mg QD Take [address] MG EC 5-11 by mouth [facility] - tablet 13:49: daily. Medical 34 Center sotaloL Yes 80mg Q.5D Take [address] [facility] (BETAPACE) 5-11 by mouth 2 Latha es - 80 MG 13:49: (two) Medical tablet 34 times Center daily. allopurinoL Yes 150mg Take [address] (ZYLOPRIM) 5-11 mg by [facility] - 300 MG 13:49: mouth Medical tablet 34 every Center other day. LORazepam Yes 1mg Take [address] [facility] (ATIVAN) 1 5-11 by mouth [facility] - MG tablet 13:49: every Medical 34 night as Center needed for Anxiety. amLODIPine 0 2021- Yes 10mg QD Take [address] [facility] (NORVASC) 5-11 05-11 tablet (10 Latha es - 10 MG 00:00: 23:59 mg total) Medica l tablet 00 :00 by mouth Center daily. pantoprazol 2021- Yes 20mg QD Take [address] [facility] e 5-11 05-11 tablet (20 [facility] - (PROTONIX) 00:00: 23:59 mg total) M edical 20 MG 00 :00 by mouth Center tablet daily. QUEtiapine 2020- Yes 25mg QD Take [address] [facility] (SEROquel) 5-11 06-10 tablet (25 Pavithra kes - 25 MG 00:00: 23:59 mg total) Medica l tablet 00 :00 by mouth Center nightly for 30 days. amLODIPine 2020- No 10mg QD Take [address] [facility] (NORVASC) 5-11 05-11 tablet (10 Latha es - 10 MG 00:00: 00:00 mg total) Medica l tablet 00 :00 by mouth Center daily. QUEtiapine 2020- No 25mg QD Take [address] [facility] (SEROquel) 5-11 05-11 tablet (25 Pavithra kes - 25 MG 00:00: 00:00 mg total) Medica l tablet 00 :00 by mouth Center nightly for 30 days. quinapriL 2020- No 40mg QD Take [address] (ACCUPRIL) 5-08 05-08 by mouth Luke s - 40 MG 01:05: 00:00 nightly. Medical tablet 22 :00 [place] cilostazoL 2020- No 100mg Take [address] (PLETAL) 5-08 05-08 mg by [facility] - 100 MG 01:05: 00:00 mouth. Medical tablet 10 :00 [place] aspirin 0.1 2020- No 1{tbl} Take [address] mg 5-08 05-08 tablet by [facility]ukes - 00:05: 00:00 mouth. Medical 07 :00 [place] tamsulosin Yes Take by Uni vers 0.4 mg 24 5-04 mouth ity of hr capsule 18:42: daily. [address] Branch traZODone Yes 50mg Take 50 mg Un melissa 50 mg 5-04 by mouth ity of tablet 18:42: at [place] [address] bedtime. Medical Branch ASPIRIN Yes 1{tbl} Take 1 Univer s (ASPIR-81 5-04 tablet by ity o f ORAL) 18:31: mouth [place] 07 daily. Medical Branch gabapentin 2020- Yes Tarsal 100mg Take 1 U nivers 100 mg 10-31 tunnel capsule by ity of capsule 00:00: 04:59 syndrome of mouth 3 [place] 00 :00 both lower (three) Medica l extremities times [place] daily for 30 days. gabapentin 2020- Yes 100mg Q.[id number] Take [address] [facility] (NEURONTIN) 10-31 [id number] mg by [facility] - 100 MG 00:00: 23:59 3D mouth 3 Medical capsule 00 :00 (three) Center times daily . donepeziL Yes 10mg QD Take [address] (ARICEPT) 4-24 by mouth [facility] - 10 MG 00:00: nightly . Medical tablet 00 [place] memantine Yes 10mg Q.5D Take [address] (NAMENDA) 4-24 by mouth 2 Luke s - 10 MG 00:00: (two) Medical tablet [address] [place] [address] daily . donepeziL Yes 10mg Take 10 mg Un melissa 10 mg 4-24 by mouth ity of tablet 00:00: daily. Medical Branch memantine Yes 10mg Take 10 mg Un melissa 10 mg 4-24 by mouth ity of tablet 00:00: daily. Medical Branch cilostazol Yes 100mg Take 100 Un melissa 100 mg 6-26 mg by ity of tablet 15:56: mouth 2 [place] 01 (two) Medical times Branch daily. hydroCHLORO [...] [place] 00 every Medical other day. Branch Vital Signs Vital Name Observation Time Observation Value Comments Source Systolic blood 2020-11-07 12:57:00 167 mm[Hg] [facility] Diastolic blood 2020-11-07 12:57:00 69 mm[Hg] [facility] Heart rate 2020-11-07 12:57:00 54 /min [facility] Body temperature 2020-11-07 12:57:00 37.11 [facility] Respiratory rate 2020-11-07 12:57:00 17 /min [facility] Oxygen saturation in 2020-11-07 12:57:00 99 /min [facility] - Arterial blood by Medical Ce nter Pulse oximetry Body height 2020-11-03 23:52:00 193 cm [facility] Body weight 2020-11-03 23:52:00 92.035 kg [facility] BMI 2020-11-03 23:52:00 24.70 kg/m2 [facility] Procedures Procedure Date / Time Performed Performing Clinician [facility] e CBC (HEMOGRAM ONLY) 2020-11-07 03:52:00 [facility] BASIC METABOLIC PANEL (7) 2020-11-07 03:52:00 [facility] PHOSPHORUS 2020-11-07 03:52:00 [facility] MAGNESIUM 2020-11-07 03:52:00 [facility] HC ARTERIAL(JONI W 2020-11-06 17:00:00 Senthil Brown [facility] - DOPPLER)ONLY [facility] HC ARTERIAL DOPPLER LEGS 2020-11-06 16:23:00 Esteban Cramer [facility] HC CAROTID DOPPLER HUGH 2020-11-06 15:20:00 Senthil Brown [facility] CBC (HEMOGRAM ONLY) 2020-11-06 04:04:[address] [facility] BASIC METABOLIC PANEL (7) 2020-11-06 04:04:[address] [facility] [address] [facility] PHOSPHORUS 2020-11-06 04:04:00 [facility] MAGNESIUM 2020-11-06 04:04:00 [facility] CBC (HEMOGRAM ONLY) 2020-11-05 05:24:00 [facility] BASIC METABOLIC PANEL (7) 2020-11-05 05:24:[address] PHOSPHORUS 2020-11-05 05:24:00 [facility] MAGNESIUM 2020-11-05 05:24:00 [facility] CBC W/PLT COUNT & AUTO 2020-11-04 04:57:[address] [facility] PROTHROMBIN TIME/INR 2020-11-04 04:57:00 DemarcusMadelin S t [facility] MAGNESIUM 2020-11-04 04:57:[address] [facility]OS[facility]US 2020-11-04 04:57:[address] [facility] COMPREHENSIVE METABOLIC 2020-11-04 04:57:00 Madelin Tracy [facility] C-REACTIVE PROTEIN 2020-11-04 04:57:00 [facility] Plan of Care Planned Activity Planned Date Details Comments Source Future Scheduled 2021-02-[address] [facility] - Test 00:00:00 (Season Ended) [code Medical Center = INFLUENZA VACCINE (Season Ended)] Future Scheduled 2021-02-28 [facility] Test 00:00:00 (Season Ended) [code Medical Branch = INFLUENZA VACCINE (Season Ended)] Future Scheduled 2020-06-[address] [facility] - Test 00:00:00 (12+) [code = Medical Center DEPRESSION SCREENING (12+)] Future Scheduled 2010-07-[address] [facility] - Test 00:00:00 WELLNESS (YEAR 2 or Medical Center FIRST YEAR if no IPPE) [code = MEDICARE ANNUAL WELLNESS (YEAR 2 or FIRST YEAR if no IPPE)] Future Scheduled 2009 PNEUMOCOCCAL 65+ YRS [facility] - Test 00:00:00 (1 of 1 - Medical Center [id number]) [code = PNEUMOCOCCAL 65+ YRS (1 of 1 - [id number] PCV13)] Future Scheduled 2009 Medicare Annual [facility] Test 00:00:00 Wellness Visit Medical [facility] h (procedure) [code = 701854061237703] Future Scheduled 2009 [facility]00 65+ (1 of 1 - PPSV23) Medica l Branch [code = PNEUMOCOCCAL VACCINES 65+ (1 of 1 - PPSV23)] Future Scheduled 1999 Screening for [facility] Test 00:00:00 malignant neoplasm of Medica l Branch lung (procedure) [code = 762323044] Future Scheduled 1994 SHINGLES VACCINES ([address] [facility] - Test 00:00:00 of 2) [code = Medical Center SHINGLES VACCINES (1 of 2)] Future Scheduled 1994 [facility] Test 00:00:00 Vaccine (SHINGRIX) (1 Medica l Branch of 2) [code = Zoster Recombinant Vaccine (SHINGRIX) (1 of 2)] Future Scheduled 1963 DTAP/TDAP/TD VACCINES [facility] Test 00:00:00 (1 - Tdap) [code = Medical C enter DTAP/TDAP/TD VACCINES (1 - Tdap)] Future Scheduled 1963 DTaP,Tdap,and Td [facility] [place] Test 00:00:00 Vaccines (1 - Tdap) Medical Branch [code = DTaP,Tdap,and Td Vaccines (1 - Tdap)] Future Scheduled 1962 HEPATITIS C SCREENING [facility] - Test 00:00:00 [code = HEPATITIS C Medical Center SCREENING] Future Scheduled 1962 Hepatitis C screening [facility] [place] Test 00:00:00 (procedure) [code = Medical Branch [id number]] Future Scheduled 1960 SARS-CoV-2 (COVID-19) [facility] [place] Test 00:00:00 Vaccine (1) [code = Medical Branch SARS-CoV-2 (COVID-19) Vaccine (1)] Future Scheduled 1956 Depression screening [facility] [place] Test 00:00:00 (procedure) [code = Medical Branch [id number]] Encounters Start End Encounter Admission Attending Care Care Encounter Source Date/Time Date/Time Type Type Clinicians Facility Department ID 2020-11-09 2020-11-09 Orders Doctor JONNY [id number] 00:00:00 00:00:00 Only Unassigned, ELIGIO [id number] [place] [facility] [id number] 2020-11-08 2020-11-08 [place] Jose [facility] [id number] 00:00:00 00:00:00 [place] [id number] [place] [id number] Professio [id number] [facility] 092 Building Results Test Description Test Time Test Comments Results Result Sour e Comments Arterial doppler 2020-10-[address] [facility] [address] legs bilateral 1 ECHO HEARTLAB BILLY Martinez - 07:35:12 CPACSRight Impression1. M edical There is >50% stenosis Ce nter in the common femoral (259 cm/sec) and profundafemoral (246 cm/sec) arteries with biphasic Doppler waveforms.3. The mid superficial femoral artery with stent is patent with thefollowing velocities: pre stent-127 cm/sec, proximal stent-92.7 cm/sec, midstent-85 cm/sec, distal stent-68.6 cm/sec and post stent-73.9 cm/sec.3. The proximal popliteal with stent is patent with a velocity of 46 cm/sec.4. The posterior tibial and anterior tibial arteries are patent withabnormal monophasic Doppler waveforms.5. The peroneal artery is not visualized.Left Impression1. There is >50% stenosis in the common femoral artery with a peak velocityof 420 cm/sec with biphasic Doppler waveforms.2. The mid superficial femoral artery with stent is patent with thefollowing velocities: pre stent-404 cm/sec, proximal stent-26.1 cm/sec, midstent-49.5 cm/sec, distal stent-48.7 cm/sec and post stent-69.5 cm/sec.3. The profunda femoral, popliteal, peroneal and anterior tibial arteriesare patent with diffuse plaque and decreased monophasic Doppler waveforms.4. Absent colorflow and Doppler signals in the posterior tibial artery,suggestive of occlusion. Conclusions Summary Arterial lower extremity duplex scanning and color flow imaging were performed bilaterally. The arteries were adequately visualized except as noted above. The right arterial system had diffuse plaque with >50% stenosis in the common femoral and profunda femoral arteries, patent stent with no evidence of stenosis in the mid superficial femoral and popliteal arteries. The left arterial system had diffuse plaque with >50% stenosis in the common femoral (VR 8.57), >50% stenosis proximal to the stent in the mid superficial femoral artery (VR 8.65), patent stent in the mid superficial femoral artery with no evidence of stenosis, absent colorflow and Doppler signals in the posterior tibial artery, suggestive of occlusion and decreased monophasic flow in the popliteal, peroneal and anetrior tibial arteries. Signature Velocities are measured in cm/s ; Diameters are measured in cm LE Duplex Measurements Right Left + + + +--- +-------- + + +--- +-------- + !Location ! !PSV !EDV !Waveform ! !PSV !EDV !Waveform ! + + + +--- +-------- + + +--- +-------- + !Mid Common Femoral ! !259 ! !Biphasic ! !420 ! !Biphasic ! + + + +--- +-------- + + +--- +-------- + !Prox PFA ! !246 ! !Biphasic ! !70.9 ! !Monophasic ! + + + +--- +-------- + + +--- +-------- + !Prox SFA ! !79.2 ! !Biphasic ! !46.7 ! !Monophasic ! + + + +--- +-------- + + +--- +-------- + !Mid SFA ! !73.9 ! !Monophasic ! !404 ! !Monophasic ! + + + +--- +-------- + + +--- +-------- + !Dist SFA ! !46 ! !Monophasic ! !66 ! !Monophasic ! + + + +--- +-------- + + +--- +-------- + !Prox Popliteal ! !48.3 ! !Monophasic ! !28.7 ! !Monophasic ! + + + +--- +-------- + + +--- +-------- + !Dist Popliteal ! !30.5 ! !Monophasic ! !25 ! !Monophasic ! + + + +--- +-------- + + +--- +-------- + !Prox PROVIDER RELATIONS REP ! !28.8 ! !Monophasic ! !0 ! !Absent ! + + + +--- +-------- + + +--- +-------- + !Mid PROVIDER RELATIONS REP ! !28.7 ! !Monophasic ! !0 ! !Absent ! + + + +--- +-------- + + +--- +-------- + !Dist PROVIDER RELATIONS REP ! !30.2 ! !Monophasic ! !0 ! !Absent ! + + + +--- +-------- + + +--- +-------- + !Prox EDMUNDO ! !31.2 ! !Monophasic ! !18.3 ! !Monophasic ! + + + +--- +-------- + + +--- +-------- + !Mid EDMUNDO ! !30.9 ! !Monophasic ! !32.2 ! !Monophasic ! + + + +--- +-------- + + +--- +-------- + !Dist EDMUNDO ! !26.9 ! !Monophasic ! + + + +--- +-------- + !Prox Peroneal ! !43.2 ! !Monophasic ! + + + +--- +-------- + !Mid Peroneal ! !38.1 ! !Monophasic ! + + + +--- +-------- + !Dist Peroneal ! !24.7 ! !Monophasic ! + + + +--- +-------- + Interface, External Ris In - 11/07/2020 7:35 AM CDTPV LAB - Lower Extremity Arterial Duplex Demographics Patient Name KRYSTAL PADGETT Date of Study 11/06/2020 Age 75 Visit Number [id number] Gender Male Accession Number [id number] Date of 1945 Referring Senthil Rico Room Number 1142 Physician MD Kevin [employer] Shaper Operator Jaskaran Urbina S Interpreting Osmar Kumar MD Physician ProcedureType of Study: Extremities Arteries: Lower Extremities Arterial Duplex, ARTERIAL DOPPLER LEGS, BILATERAL. Indications for Study:Short distance claudication vs rest pain, Priorstents..Patient Status:Routine.Study Location:Vascular Lab.Technical Quality:Adequate visualization.Risk FactorsHistory of Disease+ +----+ +!Diagnosi s !Date!Comments !+ +----+ -------+!History/Risk ! !PAD, S/P Bilateral leg stents placement, Carotid !!Factors: ! !artery stenosis, CAD, HTN, Alzheimer disease, Left !! ! !eye blindness !+ +----+ -------+ImpressionsRigh t Impression1. There is >50% stenosis in the common femoral (259 cm/sec) and profundafemoral (246 cm/sec) arteries with biphasic Doppler waveforms.3. The mid superficial femoral artery with stent is patent with thefollowing velocities: pre stent-127 cm/sec, proximal stent-92.7 cm/sec, midstent-85 cm/sec, distal stent-68.6 cm/sec and post stent-73.9 cm/sec.3. The proximal popliteal with stent is patent with a velocity of 46 cm/sec.4. The posterior tibial and anterior tibial arteries are patent withabnormal monophasic Doppler waveforms.5. The peroneal artery is not visualized.Left Impression1. There is >50% stenosis in the common femoral artery with a peak velocityof 420 cm/sec with biphasic Doppler waveforms.2. The mid superficial femoral artery with stent is patent with thefollowing velocities: pre stent-404 cm/sec, proximal stent-26.1 cm/sec, midstent-49.5 cm/sec, distal stent-48.7 cm/sec and post stent-69.5 cm/sec.3. The profunda femoral, popliteal, peroneal and anterior tibial arteriesare patent with diffuse plaque and decreased monophasic Doppler waveforms.4. Absent colorflow and Doppler signals in the posterior tibial artery,suggestive of occlusion. Conclusions Summary Arterial lower extremity duplex scanning and color flow imaging were performed bilaterally. The arteries were adequately visualized except as noted above. The right arterial system had diffuse plaque with >50% stenosis in the common femoral and profunda femoral arteries, patent stent with no evidence of stenosis in the mid superficial femoral and popliteal arteries. The left arterial system had diffuse plaque with >50% stenosis in the common femoral (VR 8.57), >50% stenosis proximal to the stent in the mid superficial femoral artery (VR 8.65), patent stent in the mid superficial femoral artery with no evidence of stenosis, absent colorflow and Doppler signals in the posterior tibial artery, suggestive of occlusion and decreased monophasic flow in the popliteal, peroneal and anetrior tibial arteries. Signature Velocities are measured in cm/s ; Diameters are measured in cmLE Duplex Measurements Right Left + + + +--- +-------- + + +--- +-------- + !Location ! !PSV !EDV !Waveform ! !PSV !EDV !Waveform ! + + + +--- +-------- + + +--- +-------- + !Mid Common Femoral ! !259 ! !Biphasic ! !420 ! !Biphasic ! + + + +--- +-------- + + +--- +-------- + !Prox PFA ! !246 ! !Biphasic ! !70.9 ! !Monophasic ! + + + +--- +-------- + + +--- +-------- + !Prox SFA ! !79.2 ! !Biphasic ! !46.7 ! !Monophasic ! + + + +--- +-------- + + +--- +-------- + !Mid SFA ! !73.9 ! !Monophasic ! !404 ! !Monophasic ! + + + +--- +-------- + + +--- +-------- + !Dist SFA ! !46 ! !Monophasic ! !66 ! !Monophasic ! + + + +--- +-------- + + +--- +-------- + !Prox Popliteal ! !48.3 ! !Monophasic ! !28.7 ! !Monophasic ! + + + +--- +-------- + + +--- +-------- + !Dist Popliteal ! !30.5 ! !Monophasic ! !25 ! !Monophasic ! + + + +--- +-------- + + +--- +-------- + !Prox PROVIDER RELATIONS REP ! !28.8 ! !Monophasic ! !0 ! !Absent ! + + + +--- +-------- + + +--- +-------- + !Mid PROVIDER RELATIONS REP ! !28.7 ! !Monophasic ! !0 ! !Absent ! + + + +--- +-------- + + +--- +-------- + !Dist PROVIDER RELATIONS REP ! !30.2 ! !Monophasic ! !0 ! !Absent ! + + + +--- +-------- + + +--- +-------- + !Prox EDMUNDO ! !31.2 ! !Monophasic ! !18.3 ! !Monophasic ! + + + +--- +-------- + + +--- +-------- + !Mid EDMUNDO ! !30.9 ! !Monophasic ! !32.2 ! !Monophasic ! + + + +--- +-------- + + +--- +-------- + !Dist EDMUNDO ! !26.9 ! !Monophasic ! + + + +--- +-------- + !Prox Peroneal ! !43.2 ! !Monophasic ! + + + +--- +-------- + !Mid Peroneal ! !38.1 ! !Monophasic ! + + + +--- +-------- + !Dist Peroneal ! !24.7 ! !Monophasic ! + + + +--- +-------- + JONI's 2020-10-[address] [facility] [address] Only(Ankle/Brach 1 ECHO HEARTLAB [facility]CK[facility] - ial Index) 07:33:45 CPACSRight Impression1. M edical The posterior tibial Cent er and dorsalis pedis arteries are patent with abnormalmonophasic Doppler waveforms.2. The PT pressure is 106 mmHg with an JONI of 0.48 and the DP pressure is117 mmHg with an JONI of 0.53, within severe obstruction range.3. The great toe pressure is 73 mmHg with an abnormal TBI of 0.33.4. The digits have decreased flow by PPG waveforms.Left Impression1. The dorsalis pedis artery is patent with abnormal monophasic Dopplerwaveforms and absent Doppler signals in the posterior tibial artery.2. The PT pressure and JONI are not obtained due to absent Doppler signal andthe DP pressure is 98 mmHg with an JONI of 0.44, within severe obstructionrange.3. The great toe pressure is 44 mmHg with an abnormal TBI of 0.20.4. The digits have decreased flow by PPG waveforms. Conclusions Summary Arterial pressures and Doppler waveforms were performed bilaterally. Adequate Doppler waveforms were obtained. Doppler waveforms were monophasic with abnormal flow bilaterally. The right JONI's were within severe obstruction range and left DP JONI was within severe obstruction range. The toe pressure and TBI's were within abnormal range bilaterally. The digits had decreased flow by PPG waveforms bilaterally. Signature Velocities are measured in cm/s ; Diameters are measured in cm Interface, External Ris In - 11/07/2020 7:33 AM CDTPV LAB - Lower Extremity Arterial Procedure Demographics Patient Name KRYSTAL PADGETT Date of Study 11/06/2020 Age 75 Visit Number [id number] Gender Male Accession Number [id number] Date of 1945 Referring [facility] Room Number 1142 Physician MD Kevin [employer] Shaper Operator Jaskaran Urbina [facility] Interpreting Osmar Kumar MD Physician ProcedureType of Study: Extremities Arteries: Lower Extremity Arterial Procedure, ARTERIAL (JONI'S W/DOPPLER) ONLY. Indications for Study:Short distance claudication vs rest pain, Priorstents..Patient Status:Routine.Study Location:Vascular Lab.Risk FactorsHistory of Disease+ +----+ +!Diagnosi s !Date!Comments !+ +----+ -------+!History/Risk ! !PAD, S/P Bilateral leg stents placement, Carotid !!Factors: ! !artery stenosis, CAD, HTN, Alzheimer disease, Left !! ! !eye blindness !+ +----+ -------+ImpressionsRigh t Impression1. The posterior tibial and dorsalis pedis arteries are patent with abnormalmonophasic Doppler waveforms.2. The PT pressure is 106 mmHg with an JONI of 0.48 and the DP pressure is117 mmHg with an JONI of 0.53, within severe obstruction range.3. The great toe pressure is 73 mmHg with an abnormal TBI of 0.33.4. The digits have decreased flow by PPG waveforms.Left Impression1. The dorsalis pedis artery is patent with abnormal monophasic Dopplerwaveforms and absent Doppler signals in the posterior tibial artery.2. The PT pressure and JONI are not obtained due to absent Doppler signal andthe DP pressure is 98 mmHg with an JONI of 0.44, within severe obstructionrange.3. The great toe pressure is 44 mmHg with an abnormal TBI of 0.20.4. The digits have decreased flow by PPG waveforms. Conclusions Summary Arterial pressures and Doppler waveforms were performed bilaterally. Adequate Doppler waveforms were obtained. Doppler waveforms were monophasic with abnormal flow bilaterally. The right JONI's were within severe obstruction range and left DP JONI was within severe obstruction range. The toe pressure and TBI's were within abnormal range bilaterally. The digits had decreased flow by PPG waveforms bilaterally. Signature Velocities are measured in cm/s ; Diameters are measured in cm Basic Metabolic Panel 2020-11-07 05:30:00 Test Item Value Reference Range Interpretation Comme nts Sodium (test code = 139 meq/L 123-442 9964-2) Potassium (test code = 3.7 meq/L 3.5-5.1 2823-3) Chloride (test code = 106 meq/L 98-107 2075-0) CO2 (test code = 2027-9) 26 meq/L 22-29 BUN (test code = 3094-0) 22 mg/dL 7-21 H Creatinine (test code = 0.85 mg/dL 0.57-1.25 2160-0) Glucose (test code = 108 mg/dL 70-105 H 2345-7) Calcium (test code = 8.7 mg/dL 8.4-10.2 28860-9) EGFR (test code = 59725-4) 106 mL/min/1.73 sq m ESTIMATED GFR IS NOT ACCURATE CREATININE HO SUZETTE IN PREDICTING GLOMERULAR FILT RATION RATE. ESTIMATED GFR IS NOT APPLICAB LE FOR DIALYSIS PATIEN TS. FEDERICO (test code = FEDERICO) Oversize Load Pilot Escort ID - HECTOR M Lab Interpretation (test Abnormal code = 92232-7) [facility]:00 Test Item Value Reference Range Interpretation Comments Magnesium (test code = 1.9 mg/dL 1.6-2.6 92182-5) FEDERICO (test code = FEDERICO) Oversize Load Pilot Escort ID - HECTOR M Lab Interpretation (test Normal code = 76996-3) [facility] 05:30:00 Test Item Value Reference Range Interpretation Comments Phosphorus (test code = 2.6 mg/dL 2.3-4.7 2777-1) FEDERICO (test code = FEDERICO) Oversize Load Pilot Escort ID - HECTOR M Lab Interpretation (test Normal code = 49878-2) [facility] [id number] 05:30:00 Test Item Value Reference Range Interpretation Comments SODIUM (BEAKER) 139 meq/L 136-145 (test code = 381) POTASSIUM (BEAKER) 3.7 meq/L 3.5-5.1 (test code = 379) CHLORIDE (BEAKER) 106 meq/L 98-107 (test code = 382) CO2 (BEAKER) (test 26 meq/L 22-29 code = 355) BLOOD UREA NITROGEN 22 mg/dL 7-21 H (BEAKER) (test code = 354) CREATININE (BEAKER) 0.85 mg/dL 0.57-1.25 (test code = 358) GLUCOSE RANDOM 108 mg/dL 70-105 H (BEAKER) (test code = 652) CALCIUM (BEAKER) 8.7 mg/dL 8.4-10.2 (test code = 697) EGFR (BEAKER) (test 106 mL/min/1.73 ESTIM ATED GFR IS code = 1092) sq m NOT ACCURATE CREATININE CLEARANCE IN PREDICTING GLOMERULAR FILTRATION RATE . ESTIMATED GFR I S NOT APPLICABLE FOR DIALYSIS PATIEN TS. Oversize Load Pilot Escort ID - HECTOR [id number] 05:30:00 Test Item Value Reference Range Interpretation Comments MAGNESIUM (BEAKER) (test code = 1.9 mg/dL 1.6-2.6 627) Oversize Load Pilot Escort ID - HECTOR [id number] 05:30:00 Test Item Value Reference Range Interpretation Comments PHOSPHORUS (BEAKER) (test code = 2.6 mg/dL 2.3-4.7 604) Oversize Load Pilot Escort ID - HECTOR [facility] (Hemogram only)2020-11-07 04:25:00 Test Item Value Reference Range Interpretation Comments WBC (test code = 6690-2) 9.8 See_Comment [A utomated message] The system PASSNFLY generated this result transmitted ref erence range: 3.5 - 10 .5 K/L. The refe rence range was not u sed to interpret this result as normal/abnor mal. RBC (test code = 789-8) 3.90 See_Comment L [Au tomated message] The system PASSNFLY generated this result transmitted ref erence range: 4.63 - 6 .08 M/L. The refe rence range was not u sed to interpret this result as normal/abnor mal. MCHC (test code = 786-4) 33.8 See_Comment L [A utomated message] The system PASSNFLY generated this result transmitted ref erence range: 32.3 - 3 6.5 GM/DL. The refe rence range was not u sed to interpret this result as normal/abnor mal. Hematocrit (test code = 40.2 % 40.1-51 4544-3) MCV (test code = 787-2) 103.1 fL 79-92.2 H MCH (test code = 785-6) 34.9 pg 25.7-32.2 H RDW (test code = 788-0) 12.8 % 11.6-14.4 Platelets (test code = 142 See_Comment L [Aut omated message] 777-3) The system PASSNFLY generated this result transmitted ref erence range: 150 - 45 0 K/CU MM. The referen ce range was not u sed to interpret this result as normal/abnor mal. MPV (test code = 9.4 fL 9.4-12.4 75398-9) nRBC (test code = 413) 0 See_Comment [Aut omated message] The system PASSNFLY generated this result transmitted ref erence range: 0 - 0 /1 00 WBC. The refere nce range was not u sed to interpret this result as normal/abnor mal. Lab Interpretation (test Abnormal code = 88860-1) [facility] (HEMOGRAM ONLY)2020-11-07 04:25:00 Test Item Value Reference Range Interpretation Comments WHITE BLOOD CELL COUNT (BEAKER) 9.8 K/ L 3.5-10.5 (test code = 775) RED BLOOD CELL COUNT (BEAKER) 3.90 M/ L 4.63-6.08 L (test code = 761) HEMOGLOBIN (BEAKER) (test code = 13.6 GM/DL 13.7-17.5 L 410) HEMATOCRIT (BEAKER) (test code = 40.2 % 40.1-51.0 411) MEAN CORPUSCULAR VOLUME (BEAKER) 103.1 fL 79.0-92.2 H (test code = 753) MEAN CORPUSCULAR HEMOGLOBIN 34.9 pg 25.7-32.2 H (BEAKER) (test code = 751) MEAN CORPUSCULAR HEMOGLOBIN CONC 33.8 GM/DL 32.3-36.5 (BEAKER) (test code = 752) RED CELL DISTRIBUTION WIDTH 12.8 % 11.6-14.4 (BEAKER) (test code = 412) PLATELET COUNT (BEAKER) (test 142 K/CU MM 150-450 L code = 756) MEAN PLATELET VOLUME (BEAKER) 9.4 fL 9.4-12.4 (test code = 754) NUCLEATED RED BLOOD CELLS 0 /100 WBC 0-0 (BEAKER) (test code = 413) Carotid doppler [id number] 18:15:45[facility]ART[facility] MKCKESSON CPACSRight Impression1. There is <50% diameter reduction (approximately 30% by 2-D measurement)in the internal carotid artery with a peak velocity of 44/10 cm/sec andheterogeneous plaque.2. There is non-occluding plaque in the external carotid artery.3.There is non-occluding plaque in the common carotid artery.4. The vertebral artery flow is antegradeand normal.5. The subclavian artery is within normal limits where visualized.Left Impression1. Thereis <50% diameter reduction (approximately 49% by 2-D measurement)in the internal carotid artery with a peak velocity of 103/19 cm/sec andheterogeneous plaque.2. There is non-occluding plaque in the external carotid artery.3. There is non-occluding plaque in the common carotid artery.4. The vertebral artery flow is antegrade and normal.5. The subclavian artery is within normal limits where visualized. Conclusions Summary Carotid duplex scanning and color flow imaging were performed bilaterally.The arteries were adequately visualized. The bilateral internal carotid arteries had <50% hemodynamically insignificant stenosis (approximately 30% by 2-D measurement on the right, approximately 49%by 2-D measurement on the left) with heterogeneous plaque. The vertebral artery flow was antegrade and normal bilaterally. The subclavian arteries were patent with normal flow bilaterally where visualized. Signature Velocities are measured in cm/s ; Diameters are measured in cm Carotid Right Measurements+ +----+----+-----+ + +---- -------+!Location !PSV !EDV !Angle!%Stenosis 2D!%Stenosis Doppler!Tortuosity !+ +----+----+--- --+ + + +!Prox CCA !53.8!7.07!60 ! ! ! !+ +----+----+-----+ + + +!Di st CCA !71.1!9.82!60 ! ! ! !+ +----+----+-- ---+ + + +!Prox ICA !44 !9.82!60 !30% !<50% ! !+ +----+----+-----+ + + + !Dist ICA !66.8!14.1!60 ! ! ! !+ +----+--- -+-----+ + + +!Prox ECA !90.3!11.7!60 ! ! ! !+ +----+----+-----+ + + +!Vertebral !63.3!9.82!60 ! ! ! !+ +----+-- --+-----+ + + +!Prox Subclavian!112 ! !60 ! ! ! !+ +----+----+-----+ + + + - There is antegrade vertebral flow noted on the right side. - Additional Measurements:ICAPSV/CCAPSV 0.94.ICAEDV/CCAEDV 1.99. Carotid Left Measurements+ +----+----+-----+ -+ + +!Location !PSV !EDV !Angle!%Stenosis 2D!%Stenosis Doppler!Tortuosity !+ +----+----+-----+ + + +!Pr ox CCA !116 !20.4!60 ! ! ! !+ +----+----+-----+ --+ + +!Dist CCA !108 !16.5!60 ! ! ! !+ +----+----+-----+ + + +!Pr ox ICA !103 !18.9!60 !49% !<50% ! !+ +----+----+-----+------ ------+ + +!Dist ICA !98.2!23.6!60 ! ! ! !+ +----+----+-----+ + + +!Pr ox ECA !106 !9.43!60 ! ! ! !+ +----+----+-----+----- -------+ + +!Vertebral !46.8!9.82!60 ! !! !+ +----+----+-----+ + + +!Pr ox Subclavian!102 ! !44 ! ! ! !+ +----+----+-----+ + + + - There is antegrade vertebral flow noted on the left side. - Additional Measurements:ICAPSV/CCAPSV 0.95.ICAEDV/CCAEDV 1.16. Interface, External Ris In - 11/06/2020 6:15 PM [facility] LAB - Carotid Duplex Study Demographics Patient Name KRYSTAL PADGETT Date of Study 11/06/2020 Age 75 Visit Number [id number] Gender Male Accession Number [id number] Date of 1945 Referring [facility] Room Number 1142 Physician MD Kevin Small Parts Shaper Operator Jaskaran Urbina S Interpreting Osmar Kumar MD Physician ProcedureType of Study: Cerebral: Carotid, CAROTID DOPPLER, BILATERAL. Indications for Study:Symptomatic left carotid stenosis.Patient Status:STAT.StudyLocation:Vascular Lab.Technical Quality:Adequate visualization.Risk FactorsHistory of Disease+------- --------+----+ +!Diagnosis !Date!Comments !+ +----+ +!History/Risk ! !PAD, S/P Bilateral leg stents placement, Carotid !!Factors: ! !artery stenosis, CAD, HTN, Alzheimer disease, Left !! ! !eye blindness !+ +----+ +ImpressionsRight Impression1. There is <50% diameter reduction (approximately 30% by 2-D measurement)in the internal carotid artery with a peak velocity of 44/10 cm/sec andheterogeneous plaque.2. There is non- occluding plaque in the external carotid artery.3. There is non-occluding plaque in the common carotid artery.4. The vertebral artery flow is antegrade and normal.5. The subclavian artery is within normal limits where visualized.Left Impression1. There is <50% diameter reduction (approximately 49% by 2-D measurement)in the internal carotid artery with a peak velocity of 103/19 cm/sec andheterogeneous plaque.2. There is non-occluding plaque in the external carotid artery.3. There is non-occluding plaque in the common carotid artery.4. The vertebral artery flow is antegrade and normal.5. The subclavian artery is within normal limits where visualized. Conclusions Summary Carotid duplex scanning and color flow imaging were performed bilaterally. The arteries were adequately visualized. The bilateral internal carotid arteries had <50% hemodynamically insignificantstenosis (approximately 30% by 2-D measurement on the right, approximately 49% by 2-D measurement onthe left) with heterogeneous plaque. The vertebral artery flow was antegrade and normal bilaterally.The subclavian arteries were patent with normal flow bilaterally where visualized. Signature Velocities are measured in cm/s ; Diameters are measured in cmCarotid Right Measurements+-- +----+----+-----+ + + +!Locati on !PSV !EDV !Angle!%Stenosis 2D!%Stenosis Doppler!Tortuosity !+ +----+----+-----+ +------- + +!Prox CCA !53.8!7.07!60 ! ! ! !+- +----+----+-----+ + + +!Dist CCA !71.1!9.82!60 ! ! ! !+ +----+----+-----+ +------ + +!Prox ICA !44 !9.82!60 !30% !<50% ! !+ +----+----+-----+ + + +!Di st ICA !66.8!14.1!60 ! ! ! !+ +----+----+-----+ +-- + +!Prox ECA !90.3!11.7!60 ! ! ! !+ +----+----+-----+ + + +!Ve rtebral !63.3!9.82!60 ! ! ! !+ +----+----+-----+ +- + +!Prox Subclavian!112 ! !60 ! ! ! !+ +----+----+-----+ + + + - There is antegrade vertebral flow noted on the right side. - Additional Measurements:ICAPSV/CCAPSV 0.94.ICAEDV/CCAEDV 1.99.Carotid Left Measurements+ +----+----+-----+ + +---- -------+!Location !PSV !EDV !Angle!%Stenosis 2D!%Stenosis Doppler!Tortuosity !+ +-- --+----+-----+ + + +!Prox CCA !116 !20.4!60 ! ! ! !+ +----+----+-----+ + +----- ------+!Dist CCA !108 !16.5!60 ! ! ! !+ +- ---+----+-----+ + + +!Prox ICA !103 !18.9!60 !49% !<50% ! !+ +----+----+-----+ + +- +!Dist ICA !98.2!23.6!60 ! ! ! !+ --+----+----+-----+ + + +!Prox ECA !106 !9.43!60 ! ! ! !+ +----+----+-----+ + + +!Vertebral !46.8!9.82!60 ! ! ! !+ ---+----+----+-----+ + + +!Prox Subclavian!102 ! !44 ! ! ! !+ +----+----+-----+ + + + - There is antegrade vertebral flow noted on the left side. - Additional Measurements:ICAPSV/CCAPSV 0.95.ICAEDV/CCAEDV 1.16.[facility] BASIC METABOLIC [id number] 05:07:00 Test Item Value Reference Range Interpretation Comments SODIUM (BEAKER) 139 meq/L 136-145 (test code = 381) POTASSIUM (BEAKER) 3.8 meq/L 3.5-5.1 (test code = 379) CHLORIDE (BEAKER) 107 meq/L 98-107 (test code = 382) CO2 (BEAKER) (test 26 meq/L 22-29 code = 355) BLOOD UREA NITROGEN 19 mg/dL 7-21 (BEAKER) (test code = 354) CREATININE (BEAKER) 0.89 mg/dL 0.57-1.25 (test code = 358) GLUCOSE RANDOM 93 mg/dL 70-105 (BEAKER) (test code = 652) CALCIUM (BEAKER) 8.4 mg/dL 8.4-10.2 (test code = 697) EGFR (BEAKER) (test 101 mL/min/1.73 ESTIM ATED GFR IS code = 1092) sq m NOT ACCURATE CREATININE CLEARANCE IN PREDICTING GLOMERULAR FILTRATION RATE . ESTIMATED GFR I S NOT APPLICABLE FOR DIALYSIS PATIEN TS. Oversize Load Pilot Escort ID - HECTOR [id number] 05:07:00 Test Item Value Reference Range Interpretation Comments MAGNESIUM (BEAKER) (test code = 2.0 mg/dL 1.6-2.6 627) Oversize Load Pilot Escort ID - HECTOR [id number] 05:07:00 Test Item Value Reference Range Interpretation Comments PHOSPHORUS (BEAKER) (test code = 3.1 mg/dL 2.3-4.7 604) Oversize Load Pilot Escort ID - HECTOR [facility] (HEMOGRAM ONLY)2020-11-06 04:36:00 Test Item Value Reference Range Interpretation Comments WHITE BLOOD CELL COUNT (BEAKER) 7.2 K/ L 3.5-10.5 (test code = 775) RED BLOOD CELL COUNT (BEAKER) 3.74 M/ L 4.63-6.08 L (test code = 761) HEMOGLOBIN (BEAKER) (test code = 13.2 GM/DL 13.7-17.5 L 410) HEMATOCRIT (BEAKER) (test code = 38.3 % 40.1-51.0 L 411) MEAN CORPUSCULAR VOLUME (BEAKER) 102.4 fL 79.0-92.2 H (test code = 753) MEAN CORPUSCULAR HEMOGLOBIN 35.3 pg 25.7-32.2 H (BEAKER) (test code = 751) MEAN CORPUSCULAR HEMOGLOBIN CONC 34.5 GM/DL 32.3-36.5 (BEAKER) (test code = 752) RED CELL DISTRIBUTION WIDTH 13.1 % 11.6-14.4 (BEAKER) (test code = 412) PLATELET COUNT (BEAKER) (test 135 K/CU MM 150-450 L code = 756) MEAN PLATELET VOLUME (BEAKER) 9.1 fL 9.4-12.4 L (test code = 754) NUCLEATED RED BLOOD CELLS 0 /100 WBC 0-0 (BEAKER) (test code = 413) BASIC METABOLIC [id number] 06:16:00 Test Item Value Reference Range Interpretation Comments SODIUM (BEAKER) 141 meq/L 136-145 (test code = 381) POTASSIUM (BEAKER) 3.9 meq/L 3.5-5.1 (test code = 379) CHLORIDE (BEAKER) 108 meq/L 98-107 H (test code = 382) CO2 (BEAKER) (test 26 meq/L 22-29 code = 355) BLOOD UREA NITROGEN 19 mg/dL 7-21 (BEAKER) (test code = 354) CREATININE (BEAKER) 0.89 mg/dL 0.57-1.25 (test code = 358) GLUCOSE RANDOM 93 mg/dL 70-105 (BEAKER) (test code = 652) CALCIUM (BEAKER) 8.6 mg/dL 8.4-10.2 (test code = 697) EGFR (BEAKER) (test 101 mL/min/1.73 ESTIM ATED GFR IS code = 1092) sq m NOT ACCURATE CREATININE CLEARANCE IN PREDICTING GLOMERULAR FILTRATION RATE . ESTIMATED GFR I S NOT APPLICABLE FOR DIALYSIS PATIEN TS. Oversize Load Pilot Escort ID - MAGALI [id number] 06:16:00 Test Item Value Reference Range Interpretation Comments MAGNESIUM (BEAKER) (test code = 2.0 mg/dL 1.6-2.6 627) Oversize Load Pilot Escort ID - MAGALI [id number] 06:16:00 Test Item Value Reference Range Interpretation Comments PHOSPHORUS (BEAKER) (test code = 3.2 mg/dL 2.3-4.7 604) Oversize Load Pilot Escort ID - MAGALI [facility] (HEMOGRAM ONLY)2020-11-05 05:40:00 Test Item Value Reference Range Interpretation Comments WHITE BLOOD CELL COUNT (BEAKER) 6.7 K/ L 3.5-10.5 (test code = 775) RED BLOOD CELL COUNT (BEAKER) 4.06 M/ L 4.63-6.08 L (test code = 761) HEMOGLOBIN (BEAKER) (test code = 14.2 GM/DL 13.7-17.5 410) HEMATOCRIT (BEAKER) (test code = 41.6 % 40.1-51.0 411) MEAN CORPUSCULAR VOLUME (BEAKER) 102.5 fL 79.0-92.2 H (test code = 753) MEAN CORPUSCULAR HEMOGLOBIN 35.0 pg 25.7-32.2 H (BEAKER) (test code = 751) MEAN CORPUSCULAR HEMOGLOBIN CONC 34.1 GM/DL 32.3-36.5 (BEAKER) (test code = 752) RED CELL DISTRIBUTION WIDTH 13.0 % 11.6-14.4 (BEAKER) (test code = 412) PLATELET COUNT (BEAKER) (test 136 K/CU MM 150-450 L code = 756) MEAN PLATELET VOLUME (BEAKER) 8.9 fL 9.4-12.4 L (test code = 754) NUCLEATED RED BLOOD CELLS 0 /100 WBC 0-0 (BEAKER) (test code = 413) Comprehensive metabolic [id number] 05:59:00 Test Item Value Reference Range Interpretation Comments Protein, Total (test 7.6 See_Comment [Autom ated code = 2885-2) message] The system which generated this result transmitted reference range : 6.0 - 8.3 gm/dL . The reference range was not used to interpret this result as normal/abnormal . Albumin (test code = 4.1 g/dL 3.5-5 57741-9) Alkaline Phosphatase 102 U/L 40-150 (test code = 6768-6) Total Bilirubin 2.2 mg/dL 0.2-1.2 H (test code = 1974-2) Sodium (test code = 143 meq/L 248-355 5469-2) Potassium (test code 3.4 meq/L 3.5-5.1 L = 2823-3) Chloride (test code 104 meq/L 98-107 = 2075-0) CO2 (test code = 28 meq/L 22-29 2027-9) BUN (test code = 17 mg/dL 7-4-0) Creatinine (test 0.85 mg/dL 0.57-1.25 code = 2160-0) Glucose (test code = 87 mg/dL 70-105 2345-7) Calcium (test code = 9.2 mg/dL 8.4-10.2 63691-6) AST (test code = 26 U/L 5-34 1920-8) ALT (test code = 25 U/L 6-55 1742-6) EGFR (test code = 106 mL/min/1.73 [place] [address]-0) m NOT ACCURATE CREATININE CLEARANCE IN PREDICTING GLOMERULAR FILTRATION RATE . ESTIMATED GFR I S NOT APPLICABLE FOR DIALYSIS PATIENTS. FEDERICO (test code = Oversize Load Pilot Escort ID - FEDERICO) EDASISpecimen slightly icteric Lab Interpretation Abnormal (test code = 63293-2) [facility] [id number] 05:59:00 Test Item Value Reference Range Interpretation Comments CRP (test code = 676) 0.24 mg/dL 0-0.5 FEDERICO (test code = FEDERICO) Oversize Load Pilot Escort ID - EDASI Lab Interpretation (test Normal code = 49475-3) [facility]2021-[facility]-08 05:59:00 Test Item Value Reference Range Interpretation Comments MAGNESIUM (BEAKER) (test code = 1.9 mg/dL 1.6-2.6 627) Oversize Load Pilot Escort ID - [id number] 05:59:00 Test Item Value Reference Range Interpretation Comments PHOSPHORUS (BEAKER) (test code = 2.1 mg/dL 2.3-4.7 L 604) Oversize Load Pilot Escort ID - EDASICOMPREHENSIVE METABOLIC [id number] 05:59:00 Test Item Value Reference Range Interpretation Comments TOTAL PROTEIN 7.6 gm/dL 6.0-8.3 (BEAKER) (test code = 770) ALBUMIN (BEAKER) 4.1 g/dL 3.5-5.0 (test code = 1145) ALKALINE PHOSPHATASE 102 U/L 40-150 (BEAKER) (test code = 346) BILIRUBIN TOTAL 2.2 mg/dL 0.2-1.2 H (BEAKER) (test code = 377) SODIUM (BEAKER) (test 143 meq/L 136-145 code = 381) POTASSIUM (BEAKER) 3.4 meq/L 3.5-5.1 L (test code = 379) CHLORIDE (BEAKER) 104 meq/L 98-107 (test code = 382) CO2 (BEAKER) (test 28 meq/L 22-29 code = 355) BLOOD UREA NITROGEN 17 mg/dL 7-21 (BEAKER) (test code = 354) CREATININE (BEAKER) 0.85 mg/dL 0.57-1.25 (test code = 358) GLUCOSE RANDOM 87 mg/dL 70-105 (BEAKER) (test code = 652) CALCIUM (BEAKER) 9.2 mg/dL 8.4-10.2 (test code = 697) AST (SGOT) (BEAKER) 26 U/L 5-34 (test code = 353) ALT (SGPT) (BEAKER) 25 U/L 6-55 (test code = 347) EGFR (BEAKER) (test 106 ESTIMATE D GFR IS code = 1092) mL/min/1.73 sq NOT ACCURA TE m CREATININE CLEARANCE IN PREDICTING GLOMERULAR FILTRATION RATE . ESTIMATED GFR I S NOT APPLICABLE FOR DIALYSIS PATIEN TS. Oversize Load Pilot Escort ID - EDASISpecimen slightly ictericC-REACTIVE [id number] 05:59:00 Test Item Value Reference Range Interpretation Comments C-REACTIVE PROTEIN (BEAKER) (test 0.24 mg/dL 0.00-0.50 code = 676) Oversize Load Pilot Escort ID - EDASIProthrombin time/[id number] 05:50:00 Test Item Value Reference Interpretation Comments Range Protime (test code = 13.7 See_Comment [Autom ated 3272-2) message] The system which generated this result transmitted reference range : 11.9 - 14.2 seconds. The reference range was not used to interpret this result as normal/abnormal . INR (test code = 1.08 See_Comment [Automated 5621-6) message] The system which generated this result transmitted reference range : <=5.90. The reference range was not used to interpret this result as normal/abnormal . FEDERICO (test code = Effective 11/25/2018: FEDERICO) PT Reference Range ChangeNew: 11.9-14.2 Previous: 11.7-14.7 RECOMMENDED COUMADIN/WARFARIN INR THERAPY RANGESSTANDARD DOSE: 2.0-3.0 Includes: PROPHYLAXIS for venous thrombosis, systemic embolization; TREATMENT for venous thrombosis and/or pulmonary embolus.HIGH RISK: Target INR is 2.5-3.5 for patients wiht mechanical heart valves. Lab Interpretation Normal (test code = 40247-0) [facility] WomenPROTHROMBIN TIME/[id number] 05:50:00 Test Item Value Reference Range Interpretation Comments PROTIME (BEAKER) 13.7 seconds 11.9-14.2 (test code = 759) INR (BEAKER) (test 1.08 See_Comment [Automat ed message] code = 370) The system PASSNFLY generated this result transmitted ref erence range: <=5.90. The reference range was not used to int erpret this result as normal/abnormal . Effective 11/25/2018: PT Reference Range ChangeNew: 11.9-14.2 Previous: 11.7- 14.7RECOMMENDED COUMADIN/WARFARIN INR THERAPY RANGESSTANDARD DOSE: 2.0-3.0 Includes: PROPHYLAXIS for venous thrombosis, systemic embolization; TREATMENT for venous thrombosis and/or pulmonary embolus.HIGH RISK: Target INR is2.5-3.5 for patients wiht mechanical heart valves.CBC with platelet count + automated [id number] 05:39:00 Test Item Value Reference Range Interpretation Comments WBC (test code = 6690-2) 8.9 See_Comment [A utomated message] The system PASSNFLY generated this result transmitted ref erence range: 3.5 - 10 .5 K/L. The refe rence range was not u sed to interpret this result as normal/abnor mal. RBC (test code = 789-8) 4.53 See_Comment L [Au tomated message] The system PASSNFLY generated this result transmitted ref erence range: 4.63 - 6 .08 M/L. The refe rence range was not u sed to interpret this result as normal/abnor mal. MCHC (test code = 786-4) 33.5 See_Comment [A utomated message] The system PASSNFLY generated this result transmitted ref erence range: 32.3 - 3 6.5 GM/DL. The refe rence range was not u sed to interpret this result as normal/abnor mal. Hematocrit (test code = 47.1 % 40.1-51 4544-3) MCV (test code = 787-2) 104.0 fL 79-92.2 H MCH (test code = 785-6) 34.9 pg 25.7-32.2 H RDW (test code = 788-0) 13.1 % 11.6-14.4 Platelets (test code = 169 See_Comment [Aut omated message] 777-3) The system [employer] generated this result transmitted ref erence range: 150 - 45 0 K/CU MM. The referen ce range was not u sed to interpret this result as normal/abnor mal. MPV (test code = 9.1 fL 9.4-12.4 L 15142-6) nRBC (test code = 413) 0 See_Comment [Aut omated message] The system [employer] generated this result transmitted ref erence range: 0 - 0 /1 00 WBC. The refere nce range was not u sed to interpret this result as normal/abnor mal. % Neutros (test code = 54 % 429) % Lymphs (test code = 33 % 430) % Monos (test code = 7 % 431) % Eos (test code = 432) 4 % % Baso (test code = 437) 1 % # Neutros (test code = 4.85 See_Comment [Aut omated message] 670) The system [employer] generated this result transmitted ref erence range: 1.78 - 5 .38 K/L. The refe rence range was not u sed to interpret this result as normal/abnor mal. # Lymphs (test code = 2.96 See_Comment [Auto mated message] 414) The system PASSNFLY generated this result transmitted ref erence range: 1.32 - 3 .57 K/L. The refe rence range was not u sed to interpret this result as normal/abnor mal. # Monos (test code = 0.63 See_Comment [Autom ated message] 415) The system PASSNFLY generated this result transmitted ref erence range: 0.30 - 0 .82 K/L. The refe rence range was not u sed to interpret this result as normal/abnor mal. # Eos (test code = 416) 0.37 See_Comment [Au tomated message] The system PASSNFLY generated this result transmitted ref erence range: 0.04 - 0 .54 K/L. The refe rence range was not u sed to interpret this result as normal/abnor mal. # Baso (test code = 417) 0.06 See_Comment [A utomated message] The system PASSNFLY generated this result transmitted ref erence range: 0.01 - 0 .08 K/L. The refe rence range was not u sed to interpret this result as normal/abnor mal. Immature 0 % 0-1 Granulocytes-Relative (test code = 2801) Lab Interpretation (test Abnormal code = 07279-0) [facility] W/PLT COUNT & AUTO [id number] 05:39:00 Test Item Value Reference Range Interpretation Comments WHITE BLOOD CELL COUNT (BEAKER) 8.9 K/ L 3.5-10.5 (test code = 775) RED BLOOD CELL COUNT (BEAKER) 4.53 M/ L 4.63-6.08 L (test code = 761) HEMOGLOBIN (BEAKER) (test code = 15.8 GM/DL 13.7-17.5 410) HEMATOCRIT (BEAKER) (test code = 47.1 % 40.1-51.0 411) MEAN CORPUSCULAR VOLUME (BEAKER) 104.0 fL 79.0-92.2 H (test code = 753) MEAN CORPUSCULAR HEMOGLOBIN 34.9 pg 25.7-32.2 H (BEAKER) (test code = 751) MEAN CORPUSCULAR HEMOGLOBIN CONC 33.5 GM/DL 32.3-36.5 (BEAKER) (test code = 752) RED CELL DISTRIBUTION WIDTH 13.1 % 11.6-14.4 (BEAKER) (test code = 412) PLATELET COUNT (BEAKER) (test 169 K/CU MM 150-450 code = 756) MEAN PLATELET VOLUME (BEAKER) 9.1 fL 9.4-12.4 L (test code = 754) NUCLEATED RED BLOOD CELLS 0 /100 WBC 0-0 (BEAKER) (test code = 413) NEUTROPHILS RELATIVE PERCENT 54 % (BEAKER) (test code = 429) LYMPHOCYTES RELATIVE PERCENT 33 % (BEAKER) (test code = 430) MONOCYTES RELATIVE PERCENT 7 % (BEAKER) (test code = 431) EOSINOPHILS RELATIVE PERCENT 4 % (BEAKER) (test code = 432) BASOPHILS RELATIVE PERCENT 1 % (BEAKER) (test code = 437) NEUTROPHILS ABSOLUTE COUNT 4.85 K/ L 1.78-5.38 (BEAKER) (test code = 670) LYMPHOCYTES ABSOLUTE COUNT 2.96 K/ L 1.32-3.57 (BEAKER) (test code = 414) MONOCYTES ABSOLUTE COUNT (BEAKER) 0.63 K/ L 0.30-0.82 (test code = 415) EOSINOPHILS ABSOLUTE COUNT 0.37 K/ L 0.04-0.54 (BEAKER) (test code = 416) BASOPHILS ABSOLUTE COUNT (BEAKER) 0.06 K/ L 0.01-0.08 (test code = 417) IMMATURE GRANULOCYTES-RELATIVE 0 % 0-1 PERCENT (BEAKER) (test code = 2011)
--- NOTE | 2020-11-29 11:15 | RAD REPORT ---
EXAM DESCRIPTION: CT - Head Brain Wo Cont - 11/29/2020 11:04 am CLINICAL HISTORY: DECLINING STATE Headache, drowsiness COMPARISON: Head Brain Wo Cont dated 11/03/2020; Head Brain Wo Cont dated 03/27/2017 TECHNIQUE: All CT scans are performed using dose optimization technique as appropriate and may inclu de automated exposure control or mA/KV adjustment according to patient size. FINDINGS: No intracranial hemorrhage, hydrocephalus or extra-axial fluid collection.Mild generalized brain atrophy is present with mild periventricular and deep white matter chronic microvascular ische jason changes.No areas of brain edema or evidence of midline shift. The paranasal sinuses and mastoids are clear. The calvarium is intact. Mild vertebral atherosclerosis . IMPRESSION: No acute intracranial abnormality.
[2020-11-29 11:17] LABS: Absolute Lymphocytes (CBC) 1.6 K/uL (0.7-4.9); Basophils % 0.5 % (0-1.3); Hematocrit 39.6 % (39.6-49.0); Lymphocytes % 18.8 % (15.3-44.8); RBC Red Blood Cell Count 3.86 M/uL (4.33-5.43)
[2020-11-29 11:21] LABS: Protime INR 1.1
[2020-11-29 11:30] LABS: Urine Blood Negative (Negative); Urine Glucose Negative (Negative); Urine Protein 1+ (Negative); Urine Specific Gravity 1.025 (1.005-1.030); Urine pH 5.5 (5.0-7.0)
[2020-11-29 11:31] LABS: Albumin 2.9 g/dL (3.4-5.0); Bilirubin Direct 0.3 mg/dL (0-0.2); Bilirubin Total 1.3 mg/dL (0.2-1.0); Protein, Total 6.9 g/dL (6.4-8.2)
[2020-11-29 11:36] LABS: Troponin (Emerg Dept Use Only) 1.12 ng/mL (0.0-0.045)
--- NOTE | 2020-11-29 11:43 | ER ---
Nurse's Notes [facility] Name: Sergio Ramirez Age: 75 yrs Sex: Male : 1945 Arrival Date: 11/29/2020 Time: 10:40 Bed 2 Private MD: Diagnosis: Non-ST elevation (NSTEMI) myocardial infarction Presentation: 11/29 10:40 Chief complaint: EMS states: His doctor wanted him to be seen for UTI, he doesn't want ca1 to go to the clinic but wants to be seen here. Pt from home living with . HX of Alzheimer's, not sure if this is baseline. A\\T\\Ox2. Denies pain as of this time. Pt has a court recording monitor that they report will be taken off tomorrow. Coronavirus screen: Client denies travel out of the [place] in the last 14 days. At this time, the client does not indicate any symptoms associated with coronavirus-19. Ebola Screen: Patient negative for fever greater than or equal to 101.5 degrees Fahrenheit, and additional compatible Ebola Virus Disease symptoms Patient denies exposure to infectious person. Patient denies travel to an Ebola-affected area in the 21 days before illness onset. No symptoms or risks identified at this time. Initial Sepsis Screen: Does the patient meet any 2 criteria? No. Patient's initial sepsis screen is negative. Does the patient have a suspected source of infection? No. Patient's initial sepsis screen is negative. Risk Assessment: Do you want to hurt yourself or someone else? Patient reports no desire to harm self or others. Onset of symptoms was November 29, 2020. 10:40 Method Of Arrival: EMS: [facility] ca1 10:40 Acuity: GENESIS 3 ca1 Triage Assessment: 10:44 General: Appears in no apparent distress. comfortable, Behavior is calm, cooperative, ca1 appropriate for age. Pain: Denies pain. EENT: No signs and/or symptoms were reported regarding the EENT system. Neuro: Level of Consciousness is awake, alert, obeys commands, Oriented to person, place. Cardiovascular: Heart tones S1 S2 present Capillary refill < 3 seconds Rhythm is irregular. Respiratory: Airway is patent Respiratory effort is even, unlabored, Respiratory pattern is regular, symmetrical, Breath sounds are clear bilaterally. GI: Abdomen is flat, non-distended, Bowel sounds present X 4 quads. Abd is soft and non tender X 4 quads. : No signs and/or symptoms were reported regarding the genitourinary system. Derm: Skin is intact, is healthy with good turgor, Skin is pink, warm \\T\\ dry. Musculoskeletal: Circulation, motion, and sensation intact. Capillary refill < 3 seconds. Historical: - Allergies: 10:44 No Known Allergies; ca1 - Home Meds: 11:17 gabapentin 100 mg oral cap 1 caps 3 times per day [Active]; clopidogrel 75 mg oral tab ca1 1 tab once daily [Active]; losartan-hydrochlorothiazide 100-25 mg oral tab 1 tab once daily [Active]; memantine 10 mg oral tab 1 tab 2 times per day [Active]; aspirin 81 mg Oral chew 1 tab once daily [Active]; allopurinol 300 mg Oral tab .5 tab every other day [Active]; donepezil 10 mg oral tab 1 tab once daily [Active]; lorazepam 0.5 mg Oral tab 1 tab nightly as needed [Active]; atorvastatin 20 mg oral tab 1 tab once daily [Active]; tamsulosin 0.4 mg oral cp24 1 cap every other day [Active]; 13:31 sotalol 80 mg Oral tab 1 tab 2 times per day [Active]; ca1 - PMHx: 10:44 Gout; Hyperlipidemia; Hypertension; ca1 13:20 Alzheimers; CVA; ca1 - PSHx: 10:44 cardiac stents; ca1 13:20 Hernia repair; ca1 - Immunization history:: Client reports receiving the 2nd dose of the Covid vaccine, Client reports receiving the 1st dose of the Covid vaccine, Pneumococcal vaccine is not up to date, Flu vaccine is up to date. - Social history:: Smoking status: Patient reports the use of cigarette tobacco products, denies chronic smoking, but will smoke occasionally. Screenin:45 Abuse screen: Denies threats or abuse. Denies injuries from another. Nutritional ca1 screening: No deficits noted. Tuberculosis screening: No symptoms or risk factors identified. Fall Risk Secondary diagnosis (15 points) Alzheimer's, IV access (20 points). Total Yost Fall Scale indicates Low Risk Score (25-44 pts). Fall prevention measures have been instituted. Side Rails Up X 2 Family Present and informed to notify staff if they need to leave bedside As available Patient and Family Educated on Fall Prevention Program and strategies. Assessment: 10:45 Reassessment: see triage notes. ca1 10:55 Reassessment: states, "he's been agitated and confused for about a week now. he is ca1 worse at night, and refuses to cooperate, not taking his meds, and he doesn't sleep well". 11:50 Reassessment: Patient appears in no apparent distress at this time. No changes from ca1 previously documented assessment. Patient and/or family updated on plan of care and expected duration. Pain level reassessed. 12:50 Reassessment: Patient appears in no apparent distress at this time. No changes from ca1 previously documented assessment. Patient and/or family updated on plan of care and expected duration. Pain level reassessed. 13:55 Reassessment: Patient appears in no apparent distress at this time. No changes from ca1 previously documented assessment. Patient and/or family updated on plan of care and expected duration. Pain level reassessed. 14:55 Reassessment: Patient appears in no apparent distress at this time. No changes from ca1 previously documented assessment. Patient and/or family updated on plan of care and expected duration. Pain level reassessed. 15:46 Reassessment: Patient appears in no apparent distress at this time. No changes from ca1 previously documented assessment. Patient and/or family updated on plan of care and expected duration. Pain level reassessed. 15:47 Reassessment: Notified hospitalist Juancarlos re heart monitor on pt. Hospitalist states ca1 he will cancel MRI at this time. 16:45 Reassessment: Patient appears in no apparent distress at this time. No changes from ca1 previously documented assessment. Patient and/or family updated on plan of care and expected duration. Pain level reassessed. 21:09 Reassessment: Patient and/or family updated on plan of care and expected duration. Pain ea level reassessed. Report given to receiving nurse on second floor. Vital Signs: 10:40 BP 128 / 89; Pulse 99; Resp 17 S; Temp 97.8(TE); Pulse Ox 100% on R/A; Weight 90.6 kg ca1 (M); Height 6 ft. 0 in. (182.88 cm); Pain 0/10; 11:35 BP 101 / 66; Pulse 105; Resp 14 S; Pulse Ox 100% on R/A; ca1 12:00 BP 122 / 81; Pulse 108; Resp 16 S; Pulse Ox 100% on R/A; ca1 13:00 BP 136 / 86; Pulse 110; Resp 20; Pulse Ox 100% on R/A; ca1 14:32 BP 132 / 101; Pulse 110; Resp 16 S; Pulse Ox 97% on R/A; ca1 15:30 BP 154 / 79; Pulse 82; Resp 16 S; Pulse Ox 98% on R/A; ca1 16:45 BP 122 / 88; Pulse 110; Resp 14 S; Pulse Ox 98% on R/A; ca1 21:09 BP 126 / 93; Pulse 102; Resp 16; Temp 98; Pulse Ox 98% ; ea 10:40 Body Mass Index 27.09 (90.60 kg, 182.88 cm) ca1 ED Course: 10:40 Patient arrived in ED. ca1 10:44 Triage completed. ca1 10:44 Rigoberto Pool MD is Attending Physician. tw4 10:44 Arm band placed on right wrist. ca1 10:45 Patient has correct armband on for positive identification. Bed in low position. Call ca1 light in reach. Side rails up X2. monitoring tech on. Pulse ox on. NIBP on. Warm blanket given. 10:46 Jamaica Leger, BOUCHRA is Primary Nurse. ca1 10:59 Initial lab(s) drawn, by me, sent to lab. Inserted saline lock: 20 gauge in right ca1 antecubital area, using aseptic technique. Blood collected. 11:04 CT Head Brain wo Cont In Process Unspecified. EDMS 11:14 EKG done, by ED staff, reviewed by Rigoberto Pool MD. em1 11:36 Notified ED physician of a critical lab result(s). Trop 1.12. ca1 11:40 Allison Anne MD is Hospitalizing Provider. tw4 11:43 Inserted saline lock: 20 gauge in left forearm, using aseptic technique. ca1 14:33 No provider procedures requiring assistance completed. Patient admitted, IV remains in ca1 place. Administered Medications: 12:43 Drug: Aspirin Chewable Tablet 324 mg Route: PO; ca1 13:20 Follow up: Response: No adverse reaction ca1 12:50 Drug: Heparin ([place] Drip) 12 units/kg/hr - (HEParin 03664 units, D5W 500 ml) ca1 {Co-Signature: em (Lowell Aldridge RN).} Route: IV; Rate: calculated rate; Site: left forearm; 13:20 Follow up: Response: No adverse reaction; IV Status: Infusion continued upon admission ca1 18:45 Follow up: IV Intake: 22ml ca1 Intake: 18:45 IV: 22ml; Total: 22ml. ca1 Outcome: 11:42 Decision to Hospitalize by Provider. tw4 17:07 Admitted to ER Hold. Please see [facility] for further documentation. ca1 17:07 Condition: stable 17:07 Instructed on the need for admit. 21:10 Patient left the ED. ea Signatures: Dispatcher [employer] Magdiel Paulino em1 Mary Hebert RN RN ea Wadley, Terrence, MD MD tw4 Jamaica Leger RN RN ca1 Edgar Munoz RN em Corrections: (The following items were deleted from the chart) 12:02 10:40 BP 128 / 89; Pulse 99bpm; Resp 17bpm; Spontaneous; Pulse Ox 100% RA; Temp 97.8F ca1 Temporal; 68.04 kg Reported; Height 6 ft. 0 in.; BMI: 20.3; Pain 0/10; ca1 13:39 11:17 Home Meds: sotalol 80 mg Oral tab 1.5 tab 2 times per day; ca1 ca1 13:46 10:40 BP 128 / 89; Pulse 99bpm; Resp 17bpm; Spontaneous; Pulse Ox 100% RA; Temp 97.8F ca1 Temporal; 90.6 kg Measured; Height 6 ft. 0 in.; BMI: 27.0; Pain 0/10; ca1 15:47 11:50 Reassessment: Patient appears in no apparent distress at this time. Patient ca1 and/or family updated on plan of care and expected duration. Pain level reassessed. Patient is alert, oriented x 3, equal unlabored respirations, skin warm/dry/pink. ca1 15:47 12:50 Reassessment: Patient appears in no apparent distress at this time. Patient ca1 and/or family updated on plan of care and expected duration. Pain level reassessed. Patient is alert, oriented x 3, equal unlabored respirations, skin warm/dry/pink. ca1 15:47 13:55 Reassessment: Patient appears in no apparent distress at this time. Patient ca1 and/or family updated on plan of care and expected duration. Pain level reassessed. Patient is alert, oriented x 3, equal unlabored respirations, skin warm/dry/pink. ca1 15:47 14:55 Reassessment: Patient appears in no apparent distress at this time. Patient ca1 and/or family updated on plan of care and expected duration. Pain level reassessed. Patient is alert, oriented x 3, equal unlabored respirations, skin warm/dry/pink. ca1
--- NOTE | 2020-11-29 11:43 | EDPHYS ---
Physician Documentation [facility] Name: Sergio Ramirez Age: 75 yrs Sex: Male : 1945 Arrival Date: 11/29/2020 Time: 10:40 Bed 2 Private MD: ED Physician Rigoberto Pool HPI: 11/29 11:43 This 75 yrs old Male presents to ER via EMS with complaints of -prob UTI. tw4 11:43 The patient presents with decreased mental status, decreased responsiveness. Onset: The tw4 symptoms/episode began/occurred today. Possible causes: CVA or TIA. Associated signs and symptoms: The patient has no apparent associated signs or symptoms. Current symptoms: In the emergency department the patient's symptoms have improved, mildly. Patient's baseline: Neuro: alert but confused, Motor: no deficits, Ambulation:. The patient has not experienced similar symptoms in the past. Historical: - Allergies: 10:44 No Known Allergies; ca1 - Home Meds: 11:17 gabapentin 100 mg oral cap 1 caps 3 times per day [Active]; clopidogrel 75 mg oral tab ca1 1 tab once daily [Active]; losartan-hydrochlorothiazide 100-25 mg oral tab 1 tab once daily [Active]; memantine 10 mg oral tab 1 tab 2 times per day [Active]; aspirin 81 mg Oral chew 1 tab once daily [Active]; allopurinol 300 mg Oral tab .5 tab every other day [Active]; donepezil 10 mg oral tab 1 tab once daily [Active]; lorazepam 0.5 mg Oral tab 1 tab nightly as needed [Active]; atorvastatin 20 mg oral tab 1 tab once daily [Active]; tamsulosin 0.4 mg oral cp24 1 cap every other day [Active]; 13:31 sotalol 80 mg Oral tab 1 tab 2 times per day [Active]; ca1 - PMHx: 10:44 Gout; Hyperlipidemia; Hypertension; ca1 13:20 Alzheimers; CVA; ca1 - PSHx: 10:44 cardiac stents; ca1 13:20 Hernia repair; ca1 - Immunization history:: Client reports receiving the 2nd dose of the Covid vaccine, Client reports receiving the 1st dose of the Covid vaccine, Pneumococcal vaccine is not up to date, Flu vaccine is up to date. - Social history:: Smoking status: Patient reports the use of cigarette tobacco products, denies chronic smoking, but will smoke occasionally. ROS: 11:43 Constitutional: Negative for fever, chills, and weight loss, Eyes: Negative for injury, tw4 pain, redness, and discharge, Cardiovascular: Negative for chest pain, palpitations, and edema, Respiratory: Negative for shortness of breath, cough, wheezing, and pleuritic chest pain, Abdomen/GI: Negative for abdominal pain, nausea, vomiting, diarrhea, and constipation, Back: Negative for injury and pain, Skin: Negative for injury, rash, and discoloration. 11:43 Neuro: Positive for altered mental status, Negative for dizziness, gait disturbance, headache, loss of consciousness, seizure activity, speech changes, syncope. 11:43 Psych: Positive for visual hallucinations, AGITATED. Exam: 12:04 Constitutional: This is a well developed, well nourished patient who is awake, alert, tw4 and in no acute distress. Head/Face: Normocephalic, atraumatic. Chest/axilla: Normal chest wall appearance and motion. Nontender with no deformity. No lesions are appreciated. Cardiovascular: Regular rate and rhythm with a normal S1 and S2. No gallops, murmurs, or rubs. Normal PMI, no JVD. No pulse deficits. Respiratory: Lungs have equal breath sounds bilaterally, clear to auscultation and percussion. No rales, rhonchi or wheezes noted. No increased work of breathing, no retractions or nasal flaring. Abdomen/GI: Soft, non-tender, with normal bowel sounds. No distension or tympany. No guarding or rebound. No evidence of tenderness throughout. Back: No spinal tenderness. No costovertebral tenderness. Full range of motion. Skin: Warm, dry with normal turgor. Normal color with no rashes, no lesions, and no evidence of cellulitis. MS/ Extremity: Pulses equal, no cyanosis. Neurovascular intact. Full, normal range of motion. Neuro: Awake and alert, GCS 15, oriented to person, place, time, and situation. Cranial nerves II-XII grossly intact. Motor strength 5/5 in all extremities. Sensory grossly intact. Cerebellar exam normal. Normal gait. Vital Signs: 10:40 BP 128 / 89; Pulse 99; Resp 17 S; Temp 97.8(TE); Pulse Ox 100% on R/A; Weight 90.6 kg ca1 (M); Height 6 ft. 0 in. (182.88 cm); Pain 0/10; 11:35 BP 101 / 66; Pulse 105; Resp 14 S; Pulse Ox 100% on R/A; ca1 12:00 BP 122 / 81; Pulse 108; Resp 16 S; Pulse Ox 100% on R/A; ca1 13:00 BP 136 / 86; Pulse 110; Resp 20; Pulse Ox 100% on R/A; ca1 14:32 BP 132 / 101; Pulse 110; Resp 16 S; Pulse Ox 97% on R/A; ca1 15:30 BP 154 / 79; Pulse 82; Resp 16 S; Pulse Ox 98% on R/A; ca1 16:45 BP 122 / 88; Pulse 110; Resp 14 S; Pulse Ox 98% on R/A; ca1 21:09 BP 126 / 93; Pulse 102; Resp 16; Temp 98; Pulse Ox 98% ; ea 10:40 Body Mass Index 27.09 (90.60 kg, 182.88 cm) ca1 MDM: 10:44 Patient medically screened. tw4 16:11 Differential Diagnosis: CVA, alcohol intoxication, hypoglycemia, meningitis, overdose, tw4 pneumonia. Data reviewed: vital signs, nurses notes. Data reviewed: lab test result(s), cardiac enzymes, CBC, electrolytes, EKG, radiologic studies, plain films. Data interpreted: Pulse oximetry: Interpretation: normal. Test interpretation: by ED physician or midlevel provider: ECG. Counseling: I had a detailed discussion with the patient and/or guardian regarding: the historical points, exam findings, and any diagnostic results supporting the discharge/admit diagnosis. Physician consultation: Allison Anne MD regarding admission, to the telemetry unit. patient's condition, and will see patient. Special discussion: I discussed with the patient/guardian in detail that at this point there is no indication for admission to the hospital. It is understood, however, that if the symptoms persist or worsen the patient needs to return immediately for re-evaluation. 11/29 10:48 Order name: Basic Metabolic Panel tw4 11/29 10:48 Order name: CBC with Diff 4 11/29 10:48 Order name: Hepatic Function 4 11/29 10:48 Order name: Lipase 4 11/29 10:48 Order name: Magnesium tw4 11/29 10:48 Order name: Protime (+inr) tw4 11/29 10:48 Order name: Ptt, Activated tw4 11/29 10:48 Order name: Troponin (emerg Dept Use Only) tw4 11/29 11:30 Order name: Urine Dipstick-Ancillary EDTX 11/29 11:33 Order name: Urine Microscopic Only em1 11/29 11:34 Order name: Urine Microscopic Only EDTX 11/29 13:47 Order name: COVID-19 : Document "Date of Symptom Onset" if Symptomatic. ca1 11/29 15:11 Order name: CORONAVIRUS EDTX 11/29 15:59 Order name: SARS-COV-2 RT PCR EDTX 11/29 10:48 Order name: CT Head Brain wo Cont tw4 11/29 10:48 Order name: EKG; Complete Time: 10:49 tw4 11/29 10:48 Order name: Cardiac monitoring; Complete Time: 11:01 tw4 11/29 10:48 Order name: EKG - Nurse/Tech; Complete Time: 11:10 tw4 11/29 10:48 Order name: IV Saline Lock; Complete Time: 11:02 tw4 11/29 10:48 Order name: Labs collected and sent; Complete Time: 11:02 tw4 11/29 10:48 Order name: NPO; Complete Time: 11:02 tw4 11/29 10:48 Order name: O2 Per Protocol; Complete Time: 11:02 tw4 11/29 17:44 Order name: Ptt, Activated ca1 11/29 18:18 Order name: PTT, Activated Partial Thromb EDTX 11/29 20:04 Order name: Troponin I EDTX 11/29 20:04 Order name: NT PRO-BNP EDTX 11/29 20:04 Order name: T4 Free EDTX 11/29 20:04 Order name: Thyroid Stimulating Hormone EDTX 11/29 10:48 Order name: O2 Sat Monitoring; Complete Time: 11:02 tw4 11/29 10:48 Order name: Urine Dipstick-Ancillary (obtain specimen); Complete Time: 11:24 tw4 EC:06 Rate is 100 beats/min. Rhythm is irregular. QRS [place] is Normal. RI interval is normal. tw4 QT interval is normal. No Q waves. T waves are Normal. No ST changes noted. Clinical impression: Atrial Flutter. Interpreted by me. Reviewed by me. Administered Medications: 12:43 Drug: Aspirin Chewable Tablet 324 mg Route: PO; ca1 13:20 Follow up: Response: No adverse reaction ca1 12:50 Drug: Heparin ([place] Drip) 12 units/kg/hr - (HEParin 21038 units, D5W 500 ml) ca1 {Co-Signature: em (Lowell Aldridge RN).} Route: IV; Rate: calculated rate; Site: left forearm; 13:20 Follow up: Response: No adverse reaction; IV Status: Infusion continued upon admission ca1 18:45 Follow up: IV Intake: 22ml ca1 Disposition: 11/29/20 11:42 Hospitalization ordered by Allison Anne for Inpatient Admission. Preliminary diagnosis is Non-ST elevation (NSTEMI) myocardial infarction. - Bed requested for Telemetry/MedSurg (Inpatient). - Status is Inpatient Admission. ea - Condition is Stable. - Problem is new. - Symptoms have improved. Signatures: Dispatcher [employer] EDViviana Norris Tonya, RN RN tl1 Mary Hebert RN RN ea Rigoberto Pool MD MD tw4 Jamaica Leger RN RN ca1 Lowell Aldridge RN em Corrections: (The following items were deleted from the chart) 13:39 11:17 Home Meds: sotalol 80 mg Oral tab 1.5 tab 2 times per day; ca1 ca1 16:47 11:42 Hospitalization Ordered by Allison Anne MD for Inpatient Admission. Preliminary bd diagnosis is Non-ST elevation (NSTEMI) myocardial infarction. Bed requested for Telemetry/MedSurg (Inpatient). Status is Inpatient Admission. Condition is Stable. Problem is new. Symptoms have improved. tw4 20:17 16:47 11/29/2020 11:42 Hospitalization Ordered by Allison Anne MD for Inpatient tl1 Admission. Preliminary diagnosis is Non-ST elevation (NSTEMI) myocardial infarction. Bed requested for [email or web address] ER HOLD. Status is Inpatient Admission. Condition is Stable. Problem is new. Symptoms have improved. bd 21:10 20:17 11/29/2020 11:42 Hospitalization Ordered by Allison Anne MD for Inpatient ea Admission. Preliminary diagnosis is Non-ST elevation (NSTEMI) myocardial infarction. Bed requested for Telemetry/MedSurg (Inpatient). Status is Inpatient Admission. Condition is Stable. Problem is new. Symptoms have improved. tl1
[2020-11-29 12:20] LABS: Urine Bacteria <20 /HPF (NONE SEEN); Urine RBC NONE SEEN /HPF (NONE SEEN)
[2020-11-29 12:21] LABS: Urine Mucus SLIGHT /HPF (NONE SEEN)
[2020-11-29] MEDS ORDERED: ASPIRIN 81 MG CHEWABLE TABLET ONE (13:09)
[2020-11-29] MEDS ORDERED: HEPARIN/D5W 25,000 UNIT/500 ML BAG IV ONE (13:09)
[2020-11-29 13:55] VITALS: BMI 27.1
[2020-11-29] MEDS ORDERED: PNEUMOCOCCAL VACCINE 0.5 ML IMVAC ONE (14:00)
--- NOTE | 2020-11-29 14:57 | P.HP ---
Certification for Inpatient With expected LOS: >2 Midnights Patient will require the following post-hospital care: Home Health Services Practitioner: I am a practitioner with admitting privileges, knowledge of patient current condition, hospital course, and medical plan of care. Services: Services provided to patient in accordance with Admission requirements found in Title 42 Section 412.3 of the Code of Federal Regulations <GeovanisunLauro barnesoc Barnes - Last Filed: 11/29/20 16:00> Patient History Date of Service: 11/29/20 Reason for admission: AMS History of Present Illness: Patient is a 75-year-old male with a past medical history significant for gout, hypertension, HLD, BPH, anxiety disorder, Alzheimer's disease who presents with complaint of altered mental status. Patient is currently alert and oriented x1. Patient is confused and unable to provide any meaningful history. Spouse reported that patient had a stroke a couple of months ago and patient lost his left eye sight due to the stroke. Spouse cannot remember the exact time of the stroke. Spouse reported that patient has not been sleeping well in the last 1-2 weeks The patient has been confused and has been having auditory and visual hallucinations as well as poor gait and coordination. Spouse indicated that these symptoms have become worse in the last week. Spouse indicated that patient has a complaint of headache behind his right eye in the last week. No other signs and symptoms reported. Spouse reported that symptoms are aggravated or relieved by nothing. Spouse decided to bring patient to the hospital for medical evaluation. - Past Medical/Surgical History Has patient received pneumonia vaccine in the past: No -: Gout -: Hyperlipidemia -: Hypertension -: BPH -: Anxiety Disorder - Social History Smoking Status: Current every day smoker Smoking therapy provided: No (Unable to provide--Pt confused ) Alcohol use: No CD- Drugs: No Place of Residence: Home <Virgen Burgos - Last Filed: 11/29/20 16:00> Date of Service: 11/29/20 <Allison Anne - Last Filed: 11/30/20 10:12> Allergies No Known Allergies Allergy (Verified 11/29/20 21:08) Home Medications: Allopurinol 150 mg PO DIRECTED 11/29/20 Aspirin 81 mg PO DAILY 11/29/20 Atorvastatin Calcium 20 mg PO DAILY 11/29/20 Clopidogrel Bisulfate [Plavix] 75 mg PO DAILY 11/29/20 Donepezil HCl 10 mg PO DAILY 11/29/20 Gabapentin [Neurontin] 100 mg PO TID 11/29/20 LORazepam [Lorazepam] 0.5 mg PO BEDTIME PRN 11/29/20 Losartan/Hydrochlorothiazide [Losartan-Hctz 100-25 mg Tab] 1 tab PO DAILY 11/29/20 Memantine HCl 10 mg PO BID 11/29/20 Sotalol HCl [Betapace*] 1 tab PO BID 11/29/20 Tamsulosin [Flomax] 0.4 mg PO BEDTIME 11/29/20 Review of Systems is unable to be obtained <Virgen Burgos - Last Filed: 11/29/20 16:00> Physical Examination - Physical Exam General: Alert, Oriented x1, Demented, Confused HEENT: Atraumatic, PERRLA, Mucous membr. moist/pink, EOMI, Sclerae nonicteric Neck: Supple, 2+ carotid pulse no bruit, No LAD, Without JVD or thyroid abnormality Respiratory: Clear to auscultation bilaterally, Normal air movement Cardiovascular: Regular rate/rhythm, Normal S1 S2 Capillary refill: <2 Seconds Gastrointestinal: Normal bowel sounds, No tenderness Musculoskeletal: No clubbing, No tenderness Integumentary: No rashes Neurological: Normal gait, Normal speech, Normal tone, Normal affect, Dementia Lymphatics: No axilla or inguinal lymphadenopathy External genitalia: Deferred Rectal: Deferred - Studies Laboratory Data (last 24 hrs) 11/29/20 10:59: PT 12.7 H, INR 1.10, APTT 27.9 11/29/20 10:59: WBC 8.30, Hgb 13.9, Hct 39.6, Plt Count 246 11/29/20 10:59: Sodium 141, Potassium 4.0, BUN 20 H, Creatinine 1.20, Glucose 102, Magnesium 2.0, Total Bilirubin 1.3 H, AST 27, ALT 32, Alkaline Phosphatase 121 H, Lipase 469 H <Virgen Burgos - Last Filed: 11/29/20 16:00> - Studies Laboratory Data (last 24 hrs) 11/29/20 10:59: PT 12.7 H, INR 1.10, APTT 27.9 11/29/20 10:59: WBC 8.30, Hgb 13.9, Hct 39.6, Plt Count 246 11/29/20 10:59: Sodium 141, Potassium 4.0, BUN 20 H, Creatinine 1.20, Glucose 102, Magnesium 2.0, Total Bilirubin 1.3 H, AST 27, ALT 32, Alkaline Phosphatase 121 H, Lipase 469 H <Allison Anne - Last Filed: 11/30/20 10:12> Assessment and Plan - Plan --Acute encephalopathy. Unclear etiology. UA negative. CT head unremarkable for any intracranial abnormality. Neurologist consulted. We will await further recommendations from the neurologist. --Elevated troponin. Will trend troponin. Patient denies any chest pain. Carbon Plant Grinder consulted. Echocardiogram pending. Telemetry. Will await further recommendations from manager interface. --Elevated lipase. Patient denies any abdominal pain. No history of pancreatitis noted on chart. Will reassess lipase in am --Alzheimer's dementia. Continue supportive care and home medication --Gout. Continue home medication --hypertension .stable. Continue home medications. --BPH. Continue home medications. --Nnxiety disorder. Continue home medications when appropriate. --Nicotine dependence. Patient will be counseled on tobacco cessation when fully alert. Patient placed on nicotine patch. --Hyperlipidemia. Continue statin. --DVT prophylaxis with heparin subQ Plan to discharge in: Greater than 2 days - Advance Directives Does patient have a Living Will: No Does patient have a Durable POA for Healthcare: No - Code Status/Comfort Care Code Status Assessed: Yes Code Status: Full Code Critical Care: No <Virgen Burgos - Last Filed: 11/29/20 16:00> Date of Service: 11/29/20 Agree with plan of care as mentioned above. Continue with IV fluids and continue with antipsychotic says needed. Patient may need [facility] transfer. <Allison Anne - Last Filed: 11/30/20 10:12>
[2020-11-29] MEDS ORDERED: ONDANSETRON 4 MG/2 ML VIAL IV PRN (18:48)
[2020-11-29] MEDS ORDERED: ACETAMINOPHEN 500 MG TAB PO PRN (18:48)
[2020-11-29] MEDS: NICOTINE 21 MG/PAT TD SCH ×2 (19:00→21:47)
[2020-11-29 19:57] LABS: Thyroid Stimulating Hormone 0.517 uIU/mL (0.360-3.740)
[2020-11-29] MEDS: TRAMADOL HCL 50 MG TAB PO PRN (19:58)
[2020-11-29] MEDS ORDERED: allopurinoL 300 MG TAB PO SCH (20:00)
[2020-11-29 20:04] LABS: Troponin I 0.84 ng/mL (0.0-0.045)
[2020-11-29] MEDS: LORAZEPAM 0.5 MG TABLET PO PRN (20:05)
[2020-11-29] MEDS ORDERED: LORAZEPAM 0.5 MG TABLET ONE (20:13)
[2020-11-29] MEDS ORDERED: TRAMADOL HCL 50 MG TAB ONE (20:14)
[2020-11-29] MEDS ORDERED: HEPARIN 5000 UNIT/ML 1 ML VIAL SQ SCH (21:00)
[2020-11-29] MEDS: MEMANTINE HCL 10 MG TABLET PO SCH (21:47)
[2020-11-29] MEDS: GABAPENTIN 100 MG CAP PO SCH (21:47)
[2020-11-29] MEDS: TAMSULOSIN 0.4 MG SR CAP PO SCH (21:47)
[2020-11-29] MEDS: SOTALOL HCL 80 MG TAB PO SCH (21:47)
[2020-11-30 06:21] LABS: Absolute Lymphocytes (CBC) 2.2 K/uL (0.7-4.9); Basophils % 1.5 % (0-1.3); Hematocrit 38.9 % (39.6-49.0); Lymphocytes % 26.9 % (15.3-44.8); MPV 6.9 fL (7.6-11.3); RBC Red Blood Cell Count 3.77 M/uL (4.33-5.43)
[2020-11-30] MEDS ORDERED: WATER FOR INJ,STERILE 10 ML IM PRN ×2 (07:39→16:58)
[2020-11-30] MEDS ORDERED: ZIPRASIDONE MESYLA 20 MG/VIAL IM ONE ×3 (07:39→18:00)
--- NOTE | 2020-11-30 07:53 | EKG ---
Test Date: 2020-11-29 Test Time: 11:11:00 Archery Instructor: ROLAND MEASUREMENT RESULTS: Intervals: Rate: 100 MT: QRSD: 104 QT: 354 QTc: 456 Sho[place]: P: 95 MT: QRS: -4 T: 242 INTERPRETIVE STATEMENTS: Atrial flutter with variable AV block ST depression, consider subendocardial injury or digitalis effect Nonspecific T wave abnormality Abnormal ECG Compared to ECG 11/03/2020 10:49:40 T-wave abnormality now present Sinus bradycardia no longer present Ventricular premature complex(es) no longer present ST (T wave) deviation still present Electronically Signed On 11-30-20 07:50:46 CDT by Sherwin Smith
[2020-11-30] MEDS: ENOXAPARIN 40 MG/0.4 ML SQ SCH (09:00)
[2020-11-30] MEDS: LOSARTAN/HCTZ 50-12.5 PO SCH ×2 (09:00→10:38)
--- NOTE | 2020-11-30 10:19 | P.PN ---
Subjective Date of Service: 11/30/20 Patient was very confused and agitated this morning. Given antipsychotic intramuscularly. Will reassess and he may need [facility] evaluation. Review of Systems is unable to be obtained Physical Examination - Vital Signs Temperature: 97.8 F Blood Pressure: 116/82 Pulse: 93 Respirations: 19 Pulse Ox (%): 96 - Physical Exam General: Alert, In no apparent distress, Confused Respiratory: Clear to auscultation bilaterally, Normal air movement Cardiovascular: Regular rate/rhythm, Normal S1 S2, Systolic murmur Gastrointestinal: Normal bowel sounds, Soft and benign, Non-distended, No tenderness Musculoskeletal: No tenderness Integumentary: No rashes Neurological: Sensation intact, Cranial nerves 3-12 intact, Abnormal speech, Abnormal strength - Studies Laboratory Data (last 24 hrs) 11/29/20 10:59: PT 12.7 H, INR 1.10, APTT 27.9 11/29/20 10:59: WBC 8.30, Hgb 13.9, Hct 39.6, Plt Count 246 11/29/20 10:59: Sodium 141, Potassium 4.0, BUN 20 H, Creatinine 1.20, Glucose 102, Magnesium 2.0, Total Bilirubin 1.3 H, AST 27, ALT 32, Alkaline Phosphatase 121 H, Lipase 469 H Medications List Reviewed: Yes Assessment & Plan - Problems (Diagnosis) (1) AMS (altered mental status) Current Visit: Yes Status: Acute (2) Elevated troponin Current Visit: Yes Status: Acute (3) Acute pancreatitis Current Visit: Yes Status: Acute (4) Alzheimer's dementia Current Visit: Yes Status: Acute (5) Personal history of cerebrovascular accident with residual effects Current Visit: Yes Status: Acute - Plan Plan: 1. Continue with anti coagulation 2. Continue with anti-platelet therapy 3. Antipsychotics as needed 4. IV hydration 5. Echocardiogram 6. Cardiology consultation 7. Neurology consultation 8. Arrangement for [facility] psych facility 9. GI and DVT prophylaxis Discharge Plan: Psychiatry Plan to discharge in: Greater than 2 days - Advance Directives Does patient have a Living Will: Yes Does patient have a Durable POA for Healthcare: No - Code Status/Comfort Care Code Status: Full Code Critical Care: No Time Spent Managing PTS Care (In Minutes): 35
[2020-11-30] MEDS: SOTALOL HCL 80 MG TAB PO SCH ×2 (10:34→19:52)
[2020-11-30] MEDS: ATORVASTATIN 20 MG TAB PO SCH (10:35)
[2020-11-30] MEDS: ASPIRIN EC 81 MG TAB PO SCH (10:35)
[2020-11-30] MEDS: DONEPEZIL HCL 5 MG TAB PO SCH (10:35)
[2020-11-30] MEDS: GABAPENTIN 100 MG CAP PO SCH ×3 (10:35→19:52)
[2020-11-30] MEDS: MEMANTINE HCL 10 MG TABLET PO SCH ×2 (10:36→19:52)
[2020-11-30] MEDS: NICOTINE 21 MG/PAT TD SCH (10:36)
--- NOTE | 2020-11-30 11:54 | CON ---
Date of Consultation: 11/29/2020 The patient was admitted to Dr. Anne's service with altered mental status on 11/29/2020. I saw the p atient on 11/29/2020. Reason For Consultation: Elevated troponin. History Of Present Illness: The patient is a 75-year-old male with a complex past medical history in cluding coronary artery disease, status post stents. He has Alzheimer, gout, hyperlipidemia, hyperte nsion, neuropathy, and benign prostatic hypertrophy as well as atrial fibrillation. He came in with altered mental status, possibly UTI, decreased responsiveness. No cardiac symptoms. Denied PND, ort hopnea, pedal edema, palpitations, or syncope. Allergies: NONE. Review of Systems: Negative. Social History: Negative. Family History: Noncontributory. Past Medical History: As listed earlier. Medications: Include gabapentin, clopidogrel, losartan with hydrochlorothiazide, memantine, aspirin, allopurinol, donepezil, lorazepam, atorvastatin, tamsulosin, and sotalol 80 mg 1 p.o. b.i.d. Physical Examination: General: He appeared to be rather agitated. Vital Signs: Stable. He was in atrial fibrillation at a rate of 93. HEENT: Negative. Neck: Supple with no bruit. Chest: Clear to auscultation and percussion. Cardiac: Revealed atrial fibrillation. No murmurs, gallops, or rubs. Abdomen: Benign. Extremities: Revealed no clubbing, cyanosis, or edema. Diagnostic Data: Showed an EKG with atrial fibrillation. BNP was 2737. Lipase was 469. Troponin w as 1.12. Appeared to have negative urinalysis. His COVID test was negative. Impression And Plan: 1.Paroxysmal atrial fibrillation, on Plavix. The patient is definitely not a candidate for anticoag ulation. 2.Elevated troponin. No clinical significance in the setting of possible infection. Echocardiogram is pending for elevated BNP and troponin. 3.Neuropathy. 4.Significant Alzheimer. 5.Benign prostatic hypertrophy. 6.Coronary artery disease, status post stent. 7.Dyslipidemia. I will continue his medical regimen, continue his sotalol for sure, obtain an echoc ardiogram, consider neurological workup. The patient did have a brain MRI and a carotid ultrasound s howing mild stenosis of the left ICA about a month ago. His brain MRI was negative then. From a car diac standpoint, I would continue sotalol, continue Plavix, obtain an echocardiogram. Definitely no indication for coronary intervention at this point. His mental status is definitely not adequate madalyn ugh for that and certainly not adequate enough for consent. I will continue to follow him. I will s ee what the echo shows. MAYO/DARRYL Voice ID: [id number] Report ID: [id number]
[2020-11-30] MEDS: TAMSULOSIN 0.4 MG SR CAP PO SCH (19:52)
[2020-11-30] MEDS: LORAZEPAM 0.5 MG TABLET PO PRN (19:52)
[2020-11-30] MEDS ORDERED: TRAZODONE 50 MG TABLET PO SCH (21:00)
--- NOTE | 2020-11-30 21:54 | CON ---
Reason For Consultation: Consultation called because of altered mental status. History Of Present Illness: Mr. Ramirez is a 75-year-old right-handed patient, who comes to [facility] with worsening confusion. His is at the bedside. She said the patient was seeing Dr. Bustillo and was diagnosed with Alzheimer disease, but for the last few weeks, he has had h allucinations and delusions, believing that she is trying to hurt him and at times would be aggressiv e towards her. She said he had a stroke and lost vision in his left eye and since that point has wor sened in terms of his hallucination where he would see things that are not present and these objects may be disturbing. He has also not slept well in the last several weeks leading up to the worsening hallucinations, making it very difficult for her to manage him. She had to have people help him down their house, which [place] [address] to actually get him into the car and she said actually when he got i nto the car with her, he took the keys out and she had to call the emergency medical services to brin g him to the hospital. At [facility], he was alert and oriented only x1. Head CT scan show ed no acute ischemic or hemorrhagic change. There was mild generalized brain atrophy from small-vess el ischemic disease. His laboratory studies showed normal white blood cell count, hemoglobin and hem atocrit were unremarkable, coagulation panel was actually normal. Initially, PT was slightly elevate d at 4.7, INR normal, PTT normal. His chemistries did show possibility of myocardial infarction with rapid troponins being elevated. He is followed by Cardiology for this. Also, his liver function st udies show alkaline phosphate elevated at 121. Normal thyroid function, normal creatinine, and gluco se unremarkable. Magnesium and calcium were normal. Urinalysis also unremarkable. COVID-19 test wa s negative. His electrocardiogram in the emergency room showed atrial flutter with variable AV block . Past Medical History: Hypertension, prostate hypertrophy, anxiety, dyslipidemia, and gout. Social History: The patient smokes daily. No alcohol, tobacco, or IV drug use. Lives with his . Allergies: NO KNOWN DRUG ALLERGIES. Home Medications: Allopurinol 150 mg daily, aspirin 81 mg daily, atorvastatin 20 mg daily, Plavix 75 mg daily, donepezil 10 mg daily, gabapentin 100 mg 3 times daily, lorazepam 0.5 mg at bedtime, hydro chlorothiazide-losartan 25/100 daily, memantine 10 mg twice daily, sotalol twice daily, Flomax 0.4 mg at bedtime. Review of Systems: Per the patient's , he has not had any recent fevers or chills, myalgias, arthralgias, rash, head ache, weight change. No other positive aside from the hallucinations, delusions, loss of his vision on the left eye, and aggressive behavior towards his . Physical Examination: Vital Signs: Blood pressure 114/87, pulse 89, respiratory rate 16, temperature 98.2, oxygen saturati on 98% on room air. Weight 199 pounds, height 6 feet, BMI 27.1. General: Mr. Ramirez is resting in bed. He appears older than stated age. HEENT: He is normocephalic and atraumatic. His sclerae are anicteric. His oropharynx is moist and pink. Neck: Supple. Chest: Clear. Heart: Regular. Skin: He did have a bruise in the right arm that is actually where his skin has been actually "marianne d off" per his after a fall. It is bandaged. He does have some bruising also noted in the uppe r extremities bilaterally, otherwise atraumatic. In general, he does not have any significant cyanos is in the extremities. Abdomen: Soft. Neurologic: Otherwise on cranial nerves, he is oriented to person and follows simple commands withou t difficulty, not oriented to floor, to the date, and the exact day of the week. His cranial nerve e xam show no focal deficits on 2 through 12. His motor examination is symmetric in the upper and lowe r extremities. Sensation appears decreased in a stocking-glove fashion. Reflexes depressed and symm etric. He will be ambulated with the physical therapist. Assessment: Mr. Ramirez is a 75-year-old patient with Alzheimer disease, seen by Dr. Bustillo, who has episodes of hallucinations and delusions with some paranoid ideation. He is on medications for strok e risk reduction. He is on donepezil and memantine per Dr. Bustillo. Also receiving lorazepam and hi s workup is negative for an infection with normal white blood cell count. Urinalysis unremarkable. He has no evidence of an acute stroke. His head CT scan is negative and he has no focal neurological findings. The psychotic episode may be related to his advancing dementia and likely they are relate d to stroke or seizure or any significant metabolic derangement. Plan: He may require an antipsychotic medication for management. It may be tough for him be managed by his while at home and they currently live in a house with [facility] and is elevated and she is looking for a place where they can be on a first-floor level for easier access. She may require help at home to manage him. At this point, the patient does not require further neurological workup and may be discharged and followed by his neurologist, Dr. Bustillo, and primary care physicians as bienvenido crystal. ROGE/DARRYL Voice ID: [id number] Report ID: [id number]
[2020-11-30 22:05] VITALS: O2SAT 93
[2020-12-01] MEDS: TRAMADOL HCL 50 MG TAB PO PRN (05:49)
[2020-12-01 06:23] LABS: Absolute Lymphocytes (CBC) 2.4 K/uL (0.7-4.9); Basophils % 0.6 % (0-1.3); Hematocrit 42.8 % (39.6-49.0); Lymphocytes % 30.2 % (15.3-44.8); MPV 7.1 fL (7.6-11.3); RBC Red Blood Cell Count 4.11 M/uL (4.33-5.43)
[2020-12-01 07:10] LABS: Albumin 3.1 g/dL (3.4-5.0); Bilirubin Total 1.1 mg/dL (0.2-1.0); Magnesium 2.2 mg/dL (1.8-2.4); Potassium 3.5 mmol/L (3.5-5.1); Protein, Total 7.3 g/dL (6.4-8.2)
[2020-12-01 07:15] LABS: Troponin I 0.77 ng/mL (0.0-0.045)
[2020-12-01] MEDS: NICOTINE 21 MG/PAT TD SCH (08:03)
[2020-12-01] MEDS: ASPIRIN EC 81 MG TAB PO SCH (08:03)
[2020-12-01] MEDS: ATORVASTATIN 20 MG TAB PO SCH (08:03)
[2020-12-01] MEDS: SOTALOL HCL 80 MG TAB PO SCH (08:03)
[2020-12-01] MEDS: LOSARTAN/HCTZ 50-12.5 PO SCH (08:03)
[2020-12-01] MEDS: MEMANTINE HCL 10 MG TABLET PO SCH (08:03)
[2020-12-01] MEDS: GABAPENTIN 100 MG CAP PO SCH (08:04)
[2020-12-01] MEDS: DONEPEZIL HCL 5 MG TAB PO SCH (08:04)
[2020-12-01 08:05] VITALS: BP 114/73
[2020-12-01] MEDS: ENOXAPARIN 40 MG/0.4 ML SQ SCH (08:05)
[2020-12-01 08:06] VITALS: TEMP 97.3
[2020-12-01] MEDS ORDERED: CLOPIDOGREL 75 MG TABLET PO SCH (09:00)
[2020-12-01] MEDS ORDERED: ZIPRASIDONE 20 MG CAP PO SCH (09:00)
--- NOTE | 2020-12-01 09:33 | P.DS ---
Discharge Date: 12/01/20 Disposition: ROUTINE DISCHARGE Discharge Condition: GOOD Reason for Admission: AMS Consultations: Cardiology Neurology - Problems (1) AMS (altered mental status) Status: Acute (2) Elevated troponin Status: Acute (3) Acute pancreatitis Status: Acute (4) Alzheimer's dementia Status: Acute (5) Personal history of cerebrovascular accident with residual effects Status: Acute Brief History of Present Illness: Patient is a 75-year-old male with a past medical history significant for gout, hypertension, HLD, BPH, anxiety disorder, Alzheimer's disease who presents with complaint of altered mental status. Patient is currently alert and oriented x1. Patient is confused and unable to provide any meaningful history. Spouse reported that patient had a stroke a couple of months ago and patient lost his left eye sight due to the stroke. Spouse cannot remember the exact time of the stroke. Spouse reported that patient has not been sleeping well in the last 1-2 weeks The patient has been confused and has been having auditory and visual hallucinations as well as poor gait and coordination. Spouse indicated that these symptoms have become worse in the last week. Spouse indicated that patient has a complaint of headache behind his right eye in the last week. No other signs and symptoms reported. Spouse reported that symptoms are aggravated or relieved by nothing. Spouse decided to bring patient to the hospital for medical evaluation. Hospital Course: Patient has done fairly well during hospital stay. Patient requires a lot of care and patient's is elderly and I am not really sure that she can provided. The patient is not want to go to a nursing facility and she states that her children will help her. She will be moving to a house that she does not will have to walk up stairs at their new home. Plan to discharge with close outpatient follow with consultants. Vital Signs/Physical Exam: Temp Pulse Resp BP Pulse Ox 97.3 F 95 H 16 114/73 95 12/01/20 08:00 12/01/20 08:03 12/01/20 08:00 12/01/20 08:03 12/01/20 08:00 General: Alert, In no apparent distress, Oriented x3 Laboratory Data at Discharge: WBC 8.10 K/uL (4.3-10.9) 12/01/20 06:06 Hgb 14.4 g/dL (13.6-17.9) 12/01/20 06:06 Hct 42.8 % (39.6-49.0) 12/01/20 06:06 Plt Count 274 K/uL (152-406) 12/01/20 06:06 PT 12.7 SECONDS (9.5-12.5) H 11/29/20 10:59 INR 1.10 11/29/20 10:59 APTT 50.1 SECONDS (24.3-36.9) H 11/29/20 23:23 Sodium 141 mmol/L (136-145) 12/01/20 06:06 Potassium 3.5 mmol/L (3.5-5.1) 12/01/20 06:06 BUN 23 mg/dL (7-18) H 12/01/20 06:06 Creatinine 1.14 mg/dL (0.55-1.3) 12/01/20 06:06 Glucose 84 mg/dL (74-106) 12/01/20 06:06 Magnesium 2.2 mg/dL (1.8-2.4) 12/01/20 06:06 Total Bilirubin 1.1 mg/dL (0.2-1.0) H 12/01/20 06:06 AST 26 U/L (15-37) 12/01/20 06:06 ALT 31 U/L (12-78) 12/01/20 06:06 Alkaline Phosphatase 120 U/L (45-117) H 12/01/20 06:06 Troponin I 0.77 ng/mL (0.0-0.045) H* 12/01/20 06:06 Lipase 138 U/L (73-393) 11/30/20 06:12 Home Medications: Allopurinol 150 mg PO DIRECTED 11/29/20 Aspirin 81 mg PO DAILY 11/29/20 Atorvastatin Calcium 20 mg PO DAILY 11/29/20 Clopidogrel Bisulfate [Plavix*] 75 mg PO DAILY 11/29/20 Donepezil HCl 10 mg PO DAILY 11/29/20 Gabapentin [Neurontin*] 100 mg PO TID 11/29/20 LORazepam [Lorazepam] 0.5 mg PO BEDTIME PRN 11/29/20 Losartan/Hydrochlorothiazide [Losartan-Hctz 100-25 mg Tab] 1 tab PO DAILY 11/29/20 Memantine HCl 10 mg PO BID 11/29/20 Sotalol HCl [Betapace*] 1 tab PO BID 11/29/20 Tamsulosin [Flomax*] 0.4 mg PO BEDTIME 11/29/20 Risperidone [Risperdal] 0.5 mg PO BEDTIME #30 tablet 12/01/20 Trazodone [Desyrel*] 50 mg PO BEDTIME PRN #30 tablet 12/01/20 New Medications: Trazodone [Desyrel*] 50 mg PO BEDTIME PRN #30 tablet PRN Reason: Insomnia Risperidone [Risperdal] 0.5 mg PO BEDTIME #30 tablet Physician Discharge Instructions: PROBLEM: Altered Mental Status GOAL: Clear understanding of disease process INSTRUCTIONS: Diet: Heart Healthy Activity: Fall precautions OK TO DC IV AND DC HOME FOLLOW-UP WITH PRIMARY CARE PROVIDER IN 1-2 WEEKS FOLLOW-UP WITH Neurology IN 1-2 WEEKS RETURN TO THE ER IF symptoms worsen CALL or TEXT DR. BALTAZAR AT [phone] IF ANY QUESTIONS REGARDING HOSPITAL STAY. PLEASE CALL THE FLOOR AT [phone] IF ANY MEDICATION OR NURSING QUESTIONS. Diet: AHA Activity: Fall precautions Followup: Salomón Nguyen MD [ASSOCIATE-ACTIVE - CAN ADMIT] - NONE,NONE [Primary Care Provider] - Time spent managing pt's care (in minutes): 35
--- NOTE | 2020-12-01 10:13 | ECHO ---
HEIGHT: 6 ft 0 in WEIGHT: 199 lb 11.84 oz DATE OF STUDY: 11/30/[address]: Virgen Burgos 2-DIMENSIONAL: YES M.MODE: YES DOPPLER: YES COLOR FLOW: YES TDS: PORTABLE: DEFINITY: BUBBLE STUDY: DIAGNOSIS: ELEVATED TROPONIN CARDIAC HISTORY: CATHERIZATION: SURGERY: PROSTHETIC VALVE: PACEMAKER: MEASUREMENTS (cm) DIASTOLIC (NORMALS) SYSTOLIC (NORMALS) IVSd 1.2 (0.6-1.2) LA Diam (1.9-4.0) LVEF 50-55% LVIDd 4.1 (3.5-5.7) LVIDs 2.7 (2.0-3.5) %FS 34% LVPWd 1.2 (0.6-1.2) Ao Diam 3.1 (2.0-3.7) 2 DIMENSIONAL ASSESSMENT: RIGHT ATRIUM: NORMAL LEFT ATRIUM: NORMAL RIGHT VENTRICLE: NORMAL LEFT VENTRICLE: NORMAL TRICUSPID VALVE: NORMAL MITRAL VALVE: MODERATE MITRAL REGURGITATION PULMONIC VALVE: NORMAL AORTIC VALVE: MILD AORTIC INSUFFIENCY, MILD CALCIFICATION PERICARDIAL EFFUSION: NONE AORTIC ROOT: NORMAL LEFT VENTRICULAR WALL MOTION: UNABLE TO EVALUATE DOPPLER/COLOR FLOW: SEE BELOW COMMENTS: LOW NORMAL LEFT VENTRICULAR EJECTION FRACTION 50-55%. UNABLE TO EVALUATE WALL MOTION (POOR WINDOWS). MODERATE MITRAL REGURGITATION. MILD AORTIC INSUFFIENCY. TECHNOLOGIST: MERI LOPEZ
--- NOTE | 2020-12-02 15:32 | PN ---
Date of Progress Note: 11/30/2020 Mr. Ramirez has come in with elevated troponin. He has a significant past medical historyincluding cor onary artery disease, status post stent. He had Alzheimer's, gout, hyperlipidemia, hypertension, princess ropathy, benign prostatic hypertrophy as well as paroxysmal atrial fibrillation, on Plavix. The cass ent is not a candidate for anticoagulation. He has had rather unremarkable neurologic workup for now . Echocardiogram, which was ordered because of his troponin, showed a low normal ejection fraction, moderate mitral regurgitation, mild aortic insufficiency, but no significant wall motion abnormalitie s. His EKG showed atrial flutter with variable block. His medications do include aspirin, Plavix, a s well as sotalol 80 mg b.i.d. We are concerned for the increase in sotalol dose to 160 b.i.d. He s tays in atrial flutter. We will continue to follow up as needed. MAYO/DARRYL Voice ID: [id number] Report ID: [id number]
== END 2020-12-01 10:52 | disposition home or self-care (01) | DRG 70 ==
LOC: ER 10:37 → ERHOLD 12:20 → 2ND 21:01
PROVIDERS: ADMIT Hospitalist; ATTEND Hospitalist
DX: G93.40 Encephalopathy, unspecified (principal); K85.90 Acute pancreatitis without necrosis or infection, unspecified; I48.92 Unspecified atrial flutter; R44.3 Hallucinations, unspecified; G30.9 Alzheimer's disease, unspecified; F02.80 Dementia in other diseases classified elsewhere, unspecified severity, without behavioral disturbance, psychotic disturbance, mood disturbance, and anxiety; I69.398 Other sequelae of cerebral infarction; H54.40 Blindness, one eye, unspecified eye; I10 Essential (primary) hypertension; I25.10 Atherosclerotic heart disease of native coronary artery without angina pectoris; M10.9 Gout, unspecified; E78.5 Hyperlipidemia, unspecified; N40.0 Benign prostatic hyperplasia without lower urinary tract symptoms; R77.8 Other specified abnormalities of plasma proteins; Z95.5 Presence of coronary angioplasty implant and graft; Z20.822 Contact with and (suspected) exposure to COVID-19
CPT/HCPCS: 36415; 70450; 80048; 80053; 80076; 81003; 81015; 82140; 82607; 82746; 83540; 83690; 83735; 83880; 84439; 84443; 84484; 85025; 85610; 85730; 93005; 93306; 96365; 99285; J1644; J1650; J3486; U0003

== ENCOUNTER 2020-12-04 15:59 | Inpatient (IN) | payer OTHER ==
--- OUTSIDE RECORDS SUMMARY | 2020-12-04 16:04 | XMS REPORT | Continuity of Care Document ---
:[address] [facility] t Address [address] [place] [address] Care Team Providers Name Role Phone Jorge [...] Date Expiration Source Number Date MEDICAREMEDICARE A [id number] SAMANTHA Martinez - [id number] 2009[facility] [id number] 2009 [facility] & 00:00:00 [facility] [id number] 2009- [facility] [phone]. 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, left loss, left 11-04 Pavithra kes - eye eye 00:00: Medical 00 [place] Alzheimer Alzheimer Disease Active [facility] disease disease 11-04 [facility] - [facility]: Medical 00 [place] CAD CAD Disease Active [facility] (coronary (coronary 2-06 [facility] - artery artery 00:00: Medical disease) disease) 00 Center HTN HTN Disease Active [facility] (hypertens (hypertens 2-06 Pavithra kes - ion) ion) 00:00: Medical 00 [place] PAD PAD Disease Active [facility] (periphera (periphera 2-06 Pavithra kes - l artery l artery 00:00: Medica l disease) disease) 00 [place] Asymptomat Asymptomat Disease Active U nivers ic ic 2-06 ity of varicose varicose 00:00: [place] veins veins Medical Branch Allergies, Adverse Reactions, Alerts This patient has no known allergies or adverse reactions. Family History Family Member Diagnosis Comments Start Date Stop Date Source Natural father No Known Problem [facility] Natural mother No Known Problem [facility] Social History Social Habit Start Date Stop Date Quantity Comments Source Sex Assigned At [facility] History of tobacco Cigarette Smoker [facility] use [facility] Exposure to Not sure [facility] SARS-CoV-2 (event) [facility] Cigarettes smoked 2020-11-04 2020-11-04 [facility] - current (pack per 00:00:00 00:00:00 [facility] day) - Reported Tobacco use and 2020-11-04 2020-11-04 Never used [facility] - exposure 00:00:00 00:00:00 [facility] Alcohol intake 2020-11-02 2020-11-02 Current University 00:00:00 00:00:00 non-drinker of [facility] alcohol Branch (finding) Smoking Status Start Date Stop Date Source Current every day smoker 2020-11-04 00:00:00 [facility] Medications Ordered Filled Start Stop Current [...] - 50 MG 13:49: Medical tablet 34 [place] hydroCHLORO Yes 12.5mg QD Take 12.5 [facility] [...] 01:05: 00:00 nightly. Medical tablet 22 :00 [place] cilostazoL 2020- No 100mg Take [address] (PLETAL) 5-08 05-08 mg by [facility] - 100 MG 01:05: 00:00 mouth. Medical tablet 10 :00 [place] aspirin 0.1 2020- No 1{tbl} Take [address] mg 5-08 05-08 tablet by [facility] - 00:05: 00:00 mouth. Medical 07 :00 [place] tamsulosin Yes Take by Uni vers 0.4 mg 24 5-04 mouth ity of hr capsule 18:42: daily. [address] Branch traZODone Yes 50mg Take 50 mg Un melissa 50 mg 5-04 by mouth ity of tablet 18:42: at [place] [address] bedtime. Medical Branch ASPIRIN Yes 1{tbl} Take 1 Univer s (ASPIR-81 5-04 tablet by ity o f ORAL) 18:31: mouth [place] 07 daily. Medical Branch gabapentin 0 2020- Yes Tarsal 100mg Take 1 U nivers 100 mg 10-31 tunnel capsule by ity of capsule 00:00: 04:59 syndrome of mouth 3 [place] 00 :00 both lower (three) Medica l extremities times [place] daily for 30 days. gabapentin 2020- No 100mg Q.[id number] Take [address] (NEURONTIN) 10-31 [id number] mg by [facility] - 100 MG 00:00: 23:59 3D mouth 3 Medical capsule 00 :00 (three) Center times daily . donepeziL Yes 10mg QD Take [address] (ARICEPT) 4-24 by mouth [facility] - 10 MG 00:00: nightly . Medical tablet 00 [place] memantine Yes 10mg Q.5D Take [address] (NAMENDA) 4-24 by mouth 2 Luke [facility] - 10 MG 00:00: (two) Medical tablet [address] [place] [address] daily . donepeziL Yes 10mg Take 10 mg Un melissa 10 mg 4-24 by mouth ity of tablet 00:00: daily. Medical Branch memantine Yes 10mg Take 10 mg Un melissa 10 mg 4-24 by mouth ity of tablet 00:00: daily. Medical Branch cilostazol Yes 100mg Take 100 Un melissa 100 mg 6-26 mg by ity of tablet 15:56: mouth 2 [place] 01 (two) Medical times Branch daily. hydroCHLORO [...] Source Systolic blood 2020-11-07 12:57:00 167 mm[Hg] [facility] Diastolic blood 2020-11-07 12:57:00 69 mm[Hg] [facility] Heart rate 2020-11-07 12:57:00 54 /min [facility] Body temperature 2020-11-07 12:57:00 37.11 Althea [facility] Respiratory rate 2020-11-07 12:57:00 17 /min [facility] Oxygen saturation in 2020-11-07 12:57:00 99 /min [facility] - Arterial blood by Medical Ce nter Pulse oximetry Body height 2020-11-03 23:52:00 193 cm [facility] Body weight 2020-11-03 23:52:00 92.035 kg [facility] BMI 2020-11-03 23:52:00 24.70 kg/m2 [facility] Procedures Procedure Date / Time Performed Performing Clinician [facility] e CBC (HEMOGRAM ONLY) 2020-11-07 03:52:00 [facility] BASIC METABOLIC PANEL (7) 2020-11-07 03:52:00 [facility] PHOSPHORUS 2020-11-07 03:52:00 [facility] MAGNESIUM 2020-11-07 03:52:00 [facility] HC ARTERIAL(JONI W 2020-11-06 17:00:00 Senthil Brown [facility] - DOPPLER)ONLY [facility] HC ARTERIAL DOPPLER LEGS 2020-11-06 16:23:[address] [facility] HC CAROTID DOPPLER HUGH 2020-11-06 15:20:00 Senthil Brown [facility] CBC (HEMOGRAM ONLY) 2020-11-06 04:04:00 [facility]OL[facility] PAN[facility] (7) 2020-11-06 04:04:00 [facility] PHOSPHORUS 2020-11-06 04:04:00 [facility] MAGNESIUM 2020-11-06 04:04:00 [facility] CBC (HEMOGRAM ONLY) 2020-11-05 05:24:00 [facility] BASIC METABOLIC PANEL (7) 2020-11-05 05:24:00 [facility] PHOS[facility]ORUS 2020-11-05 05:24:00 [facility] MAGNESIUM 2020-11-05 05:24:00 [facility] CBC W/PLT COUNT & AUTO 2020-11-04 04:57:00 [facility] PROT[facility]OMBIN TIME/INR 2020-11-04 04:57:00 DemarcusMadelin [facility] S t [facility] MAGNESIUM 2020-11-04 04:57:00 [facility] 2020-11-04 04:57:00 [facility] COMPREHENSIVE METABOLIC 2020-11-04 04:57:00 Madelin Tracy [facility] C-REACTIVE PROTEIN 2020-11-04 04:57:00 [facility] Plan of Care Planned Activity Planned Date Details Comments Source Future Scheduled 2021-02-[address] [facility] - Test 00:00:00 (Season Ended) [code Medical Center = INFLUENZA VACCINE (Season Ended)] Future Scheduled 2021-02-28 [facility] Test 00:00:00 (Season Ended) [code Medical Branch [...] 00:00:00 (1 of 1 - Medical Center [id number] PCV13) [code = PNEUMOCOCCAL 65+ YRS (1 of 1 - YOUW27_Kqktypg PCV13)] Future Scheduled 2009 Medicare Annual [facility] Test 00:00:00 Wellness Visit Medical [facility] h (procedure) [code = 102072279711563] Future Scheduled 2009 [facility]CC[facility]00 65+ (1 of 1 - PPSV23) Medica l Branch [code = PNEUMOCOCCAL VACCINES 65+ (1 of 1 - PPSV23)] Future Scheduled 1999 Screening for [facility] Test 00:00:00 malignant neoplasm of Medica l Branch lung (procedure) [code = 755210631] Future Scheduled 1994 SHINGLES VACCINES ([address] [facility] - Test 00:00:00 of 2) [code = Medical Center SHINGLES VACCINES (1 of 2)] Future Scheduled 1994 Zoster Recombinant [facility] Test 00:00:00 Vaccine (SHINGRIX) (1 [...] 1962 HEPATITIS C SCREENING [facility] - Test 00:00:00 [code = HEPATITIS C Medical Center SCREENING] Future Scheduled 1962 Hepatitis C screening [facility] [place] Test 00:00:00 (procedure) [code = Medical Branch 703065261] Future Scheduled 1960 SARS-CoV-2 (COVID-19) [facility] [place] Test 00:00:00 Vaccine (1) [code = Medical Branch SARS-CoV-2 (COVID-19) Vaccine (1)] Future Scheduled 1956 Depression screening [facility] [place] Test 00:00:00 (procedure) [code = Medical Branch 761646120] Encounters Start End Encounter Admission Attending Care Care Encounter Source Date/Time Date/Time Type Type Clinicians Facility Department ID 2020-11-09 2020-11-09 Orders Doctor JONNY [id number] 00:00:00 00:00:00 Only Unassigned, ELIGIO [id number] [place] [facility] [id number] 2020-11-08 2020-11-08 [place] [facility] [id number] 00:00:00 00:00:00 Bib [place] [id number] [place] [id number] Professio [id number] [facility] 092 Building Results Test Description Test Time [...] +-------- + + +--- +-------- + !Prox CLINICAL LAW PROFESSOR ! !28.8 ! !Monophasic ! !0 ! !Absent ! + + + +--- +-------- + + +--- +-------- + !Mid CLINICAL LAW PROFESSOR ! !28.7 ! !Monophasic ! !0 ! !Absent ! + + + +--- +-------- + + +--- +-------- + !Dist CLINICAL LAW PROFESSOR ! !30.2 ! !Monophasic ! !0 ! [...] of Study 11/06/2020 Age 75 Visit Number [id number] Gender Male Accession Number [id number] Date of 1945 Referring Senthil Rico Room Number 1142 Physician MD [employer] Worker Jaskaran Urbina S Interpreting Osmar Kumar MD [...] +-------- + + +--- +-------- + !Prox CLINICAL LAW PROFESSOR ! !28.8 ! !Monophasic ! !0 ! !Absent ! + + + +--- +-------- + + +--- +-------- + !Mid CLINICAL LAW PROFESSOR ! !28.7 ! !Monophasic ! !0 ! !Absent ! + + + +--- +-------- + + +--- +-------- + !Dist CLINICAL LAW PROFESSOR ! !30.2 ! !Monophasic ! !0 ! [...] of Study 11/06/2020 Age 75 Visit Number [id number] Gender Male Accession Number [id number] Date of 1945 Referring [facility] Room Number 1142 Physician MD [employer] Worker Jaskaran Urbina [facility] Interpreting Osmar Kumar MD Physician ProcedureType of [...] nts Sodium (test code = 139 meq/L 154-525 6057-2) Potassium (test code = 3.7 meq/L 3.5-5.1 2823-3) Chloride (test code = 106 meq/L 98-107 2075-0) CO2 (test code = 2027-9) 26 meq/L 22-29 BUN (test code = 3094-0) 22 mg/dL 7-21 H Creatinine (test code = 0.85 mg/dL 0.57-1.25 2160-0) Glucose (test code = 108 mg/dL 70-105 H 2345-7) Calcium (test code = 8.7 mg/dL 8.4-10.2 60320-7) EGFR (test code = 35196-8) 106 mL/min/1.73 sq m ESTIMATED GFR IS NOT ACCURATE CREATININE HO SUZETTE IN PREDICTING GLOMERULAR FILT RATION RATE. ESTIMATED GFR IS NOT APPLICAB LE FOR DIALYSIS PATIEN TS. FEDERICO (test code = FEDERICO) Teacher Lip Reading ID - HECTOR M Lab Interpretation (test Abnormal code = 66375-4) [facility]30:00 Test Item Value Reference Range Interpretation Comments Magnesium (test code = 1.9 mg/dL 1.6-2.6 78032-3) FEDERICO (test code = FEDERICO) Teacher Lip Reading ID - HECTOR M Lab Interpretation (test Normal code = 76759-3) [facility] 05:30:00 Test Item Value Reference Range Interpretation Comments Phosphorus (test code = 2.6 mg/dL 2.3-4.7 2777-1) FEDERICO (test code = FEDERICO) Teacher Lip Reading ID - HECTOR M Lab Interpretation (test Normal code = 34929-8) [facility] [id number] 05:30:00 Test Item Value Reference Range Interpretation [...] S NOT APPLICABLE FOR DIALYSIS PATIEN TS. Teacher Lip Reading ID - HECTOR [id number] 05:30:00 Test Item Value Reference Range Interpretation Comments MAGNESIUM (BEAKER) (test code = 1.9 mg/dL 1.6-2.6 627) Teacher Lip Reading ID - HECTOR [id number] 05:30:00 Test Item Value Reference Range Interpretation Comments PHOSPHORUS (BEAKER) (test code = 2.6 mg/dL 2.3-4.7 604) Teacher Lip Reading ID - HECTOR [facility] (Hemogram only)2020-11-07 04:25:00 Test Item Value Reference Range Interpretation Comments WBC (test code = 6690-2) 9.8 See_Comment [A utomated message] The system [facility] generated this result transmitted ref erence range: 3.5 - 10 .5 K/L. The refe rence range was not u sed to interpret this result as normal/abnor mal. RBC (test code = 789-8) 3.90 See_Comment L [Au tomated message] The system [facility] generated this result transmitted ref erence range: 4.63 - 6 .08 M/L. The refe rence range was not u sed to interpret this result as normal/abnor mal. MCHC (test code = 786-4) 33.8 See_Comment L [A utomated message] The system [facility] generated this result transmitted ref erence range: [...] L [Aut omated message] 777-3) The system [facility] generated this result transmitted ref erence range: 150 - 45 0 K/CU MM. The referen ce range was not u sed to interpret this result as normal/abnor mal. MPV (test code = 9.4 fL 9.4-12.4 91036-5) nRBC (test code = 413) 0 See_Comment [Aut omated message] The system [facility] generated this result transmitted ref erence range: 0 - 0 /1 00 WBC. The refere nce range was not u sed to interpret this result as normal/abnor mal. Lab Interpretation (test Abnormal code = 07054-8) [facility] (HEMOGRAM ONLY)2020-11-07 04:25:00 Test Item Value Reference [...] (BEAKER) (test code = 413) Carotid doppler [id number] 18:15:45Ejection FractionSST. [facility] ECHO HEARTLAB MKCKESSON CPACSRight Impression1. There is [...] of Study 11/06/2020 Age 75 Visit Number [id number] Gender Male Accession Number [id number] Date of 1945 Referring [facility] Room Number 1142 Physician MD [employer] Worker Jaskaran Urbina S Interpreting Osmar Kumar MD [...] left side. - Additional Measurements:ICAPSV/CCAPSV 0.95.ICAEDV/CCAEDV 1.16.[facility] BASIC METABOLIC [id number] 05:07:00 Test Item Value Reference Range Interpretation [...] S NOT APPLICABLE FOR DIALYSIS PATIEN TS. Teacher Lip Reading ID - HECTOR [id number] 05:07:00 Test Item Value Reference Range Interpretation Comments MAGNESIUM (BEAKER) (test code = 2.0 mg/dL 1.6-2.6 627) Teacher Lip Reading ID - HECTOR [id number] 05:07:00 Test Item Value Reference Range Interpretation Comments PHOSPHORUS (BEAKER) (test code = 3.1 mg/dL 2.3-4.7 604) Teacher Lip Reading ID - HECTOR [facility] (HEMOGRAM ONLY)2020-11-06 04:36:00 [...] (BEAKER) (test code = 413) BASIC METABOLIC [id number] 06:16:00 Test Item Value Reference Range Interpretation [...] S NOT APPLICABLE FOR DIALYSIS PATIEN TS. Teacher Lip Reading ID - MAGALI [id number] 06:16:00 Test Item Value Reference Range Interpretation Comments MAGNESIUM (BEAKER) (test code = 2.0 mg/dL 1.6-2.6 627) Teacher Lip Reading ID - MAGALI [id number] 06:16:00 Test Item Value Reference Range Interpretation Comments PHOSPHORUS (BEAKER) (test code = 3.2 mg/dL 2.3-4.7 604) Teacher Lip Reading ID - MAGALI [facility] (HEMOGRAM ONLY)2020-11-05 05:40:00 [...] (BEAKER) (test code = 413) Comprehensive metabolic [id number] 05:59:00 Test Item Value Reference Range Interpretation Comments Protein, Total (test 7.6 See_Comment [Autom ated code = 2885-2) message] The system which generated this result transmitted reference range : 6.0 - 8.3 gm/dL . The reference range was not used to interpret this result as normal/abnormal . Albumin (test code = 4.1 g/dL 3.5-5 06445-1) Alkaline Phosphatase 102 U/L 40-150 (test code = 6768-6) Total Bilirubin 2.2 mg/dL 0.2-1.2 H (test code = 1974-2) Sodium (test code = 143 meq/L 208-051 0770-2) Potassium (test code 3.4 meq/L 3.5-5.1 L = 2823-3) Chloride (test code 104 meq/L 98-107 = 2075-0) CO2 (test code = 28 meq/L 22-29 2027-9) BUN (test code = 17 mg/dL 7-4-0) Creatinine (test 0.85 mg/dL 0.57-1.25 code = 2160-0) Glucose (test code = 87 mg/dL 70-105 2345-7) Calcium (test code = 9.2 mg/dL 8.4-10.2 03758-3) AST (test code = 26 U/L 5-34 1920-8) ALT (test code = 25 U/L 6-55 1742-6) EGFR (test code = 106 mL/min/1.[place] [address]-9) m NOT ACCURATE CREATININE CLEARANCE IN PREDICTING GLOMERULAR FILTRATION RATE . ESTIMATED GFR I S NOT APPLICABLE FOR DIALYSIS PATIENTS. FEDERICO (test code = Teacher Lip Reading ID - FEDERICO) EDASISpecimen slightly icteric Lab Interpretation Abnormal (test code = 68510-7) [facility]-Reactive [id number] 05:59:00 Test Item Value Reference Range Interpretation Comments CRP (test code = 676) 0.24 mg/dL 0-0.5 FEDERICO (test code = FEDERICO) Teacher Lip Reading ID - EDASI Lab Interpretation (test Normal code = 01320-8) [facility]UM2021-05-08 05:59:00 Test Item Value Reference Range Interpretation Comments MAGNESIUM (BEAKER) (test code = 1.9 mg/dL 1.6-2.6 627) Teacher Lip Reading ID - [id number] 05:59:00 Test Item Value Reference Range Interpretation Comments PHOSPHORUS (BEAKER) (test code = 2.1 mg/dL 2.3-4.7 L 604) Teacher Lip Reading ID - EDASICOMPREHENSIVE METABOLIC [id number] 05:59:00 Test Item Value Reference Range Interpretation [...] S NOT APPLICABLE FOR DIALYSIS PATIEN TS. Teacher Lip Reading ID - EDASISpecimen slightly ictericC-REACTIVE [id number] 05:59:00 Test Item Value Reference Range Interpretation Comments C-REACTIVE PROTEIN (BEAKER) (test 0.24 mg/dL 0.00-0.50 code = 676) Teacher Lip Reading ID - EDASIProthrombin time/[id number] 05:50:00 Test Item Value Reference Interpretation Comments Range Protime (test code = 13.7 See_Comment [Autom ated 7062-2) message] The system which generated this result transmitted reference range : 11.9 - 14.2 seconds. The reference range was not used to interpret this result as normal/abnormal . INR (test code = 1.08 See_Comment [Automated 1951-6) message] The system which generated this result transmitted reference range : <=5.90. The reference range was not used to interpret this result as normal/abnormal . FEDERICO (test code = Effective 11/25/2018: EFDERICO) PT Reference Range ChangeNew: 11.9-14.2 Previous: 11.7-14.7 RECOMMENDED COUMADIN/WARFARIN INR THERAPY RANGESSTANDARD DOSE: 2.0-3.0 Includes: PROPHYLAXIS for venous thrombosis, systemic embolization; TREATMENT for venous thrombosis and/or pulmonary embolus.HIGH RISK: Target INR is 2.5-3.5 for patients wiht mechanical heart valves. Lab Interpretation Normal (test code = 66502-3) [facility] HospitalPROTHROMBIN [id number] 05:50:00 Test Item Value Reference Range Interpretation Comments PROTIME (BEAKER) 13.7 seconds 11.9-14.2 (test code = 759) INR (BEAKER) (test 1.08 See_Comment [Automat ed message] code = 370) The system [facility] generated this result transmitted ref erence range: [...] heart valves.CBC with platelet count + automated [id number] 05:39:00 Test Item Value Reference Range Interpretation Comments WBC (test code = 6690-2) 8.9 See_Comment [A utomated message] The system [facility] generated this result transmitted ref erence range: 3.5 - 10 .5 K/L. The refe rence range was not u sed to interpret this result as normal/abnor mal. RBC (test code = 789-8) 4.53 See_Comment L [Au tomated message] The system [facility] generated this result transmitted ref erence range: 4.63 - 6 .08 M/L. The refe rence range was not u sed to interpret this result as normal/abnor mal. MCHC (test code = 786-4) 33.5 See_Comment [A utomated message] The system [facility] generated this result transmitted ref erence range: [...] See_Comment [Aut omated message] 777-3) The system [facility] generated this result transmitted ref erence range: 150 - 45 0 K/CU MM. The referen ce range was not u sed to interpret this result as normal/abnor mal. MPV (test code = 9.1 fL 9.4-12.4 L 18046-1) nRBC (test code = 413) 0 See_Comment [Aut omated message] The system [facility] generated this result transmitted ref erence range: [...] See_Comment [Aut omated message] 670) The system [facility] generated this result transmitted ref erence range: 1.78 - 5 .38 K/L. The refe rence range was not u sed to interpret this result as normal/abnor mal. # Lymphs (test code = 2.96 See_Comment [Auto mated message] 414) The system [facility] generated this result transmitted ref erence range: 1.32 - 3 .57 K/L. The refe rence range was not u sed to interpret this result as normal/abnor mal. # Monos (test code = 0.63 See_Comment [Autom ated message] 415) The system [facility] generated this result transmitted ref erence range: 0.30 - 0 .82 K/L. The refe rence range was not u sed to interpret this result as normal/abnor mal. # Eos (test code = 416) 0.37 See_Comment [Au tomated message] The system [facility] generated this result transmitted ref erence range: 0.04 - 0 .54 K/L. The refe rence range was not u sed to interpret this result as normal/abnor mal. # Baso (test code = 417) 0.06 See_Comment [A utomated message] The system [facility] generated this result transmitted ref erence range: 0.01 - 0 .08 K/L. The refe rence range was not u sed to interpret this result as normal/abnor mal. Immature 0 % 0-1 Granulocytes-Relative (test code = 2801) Lab Interpretation (test Abnormal code = 98360-0) [facility] W/PLT COUNT & AUTO [id number] 05:39:00 Test Item Value Reference Range Interpretation [...] % 0-1 PERCENT (BEAKER) (test code = 5191)
[2020-12-04 17:10] LABS: Absolute Lymphocytes (CBC) 1.6 K/uL (0.7-4.9); Basophils % 0.5 % (0-1.3); Hematocrit 41.4 % (39.6-49.0); Lymphocytes % 20.4 % (15.3-44.8); MPV 6.9 fL (7.6-11.3); RBC Red Blood Cell Count 4.02 M/uL (4.33-5.43)
[2020-12-04 17:11] LABS: Protime INR 1.11
[2020-12-04] MEDS ORDERED: NA CHLORIDE 0.9% 250 ML ONE (17:23)
[2020-12-04 17:24] LABS: Potassium 3.9 mmol/L (3.5-5.1)
[2020-12-04 17:30] LABS: Troponin (Emerg Dept Use Only) 0.95 ng/mL (0.0-0.045)
--- NOTE | 2020-12-04 17:53 | RAD REPORT ---
EXAM DESCRIPTION: RAD - Chest Single View - 12/04/2020 5:43 pm CLINICAL HISTORY: CHEST PAIN Chest pain. COMPARISON: Chest Single View dated 11/03/2020; Chest Single View dated 03/27/2017; Chest Single View d ated 03/15/2017; ABDOMEN 1 VIEW KUB dated 12/30/2013 FINDINGS: Portable technique limits examination quality. The lungs are mildly emphysematous but grossly clear. The heart is normal in size. No displaced fract ures. IMPRESSION: Mild diffuse COPD.
--- NOTE | 2020-12-04 18:32 | ER ---
Nurse's Notes [facility] Name: Sergio Ramirez Age: 75 yrs Sex: Male : 1945 Arrival Date: 12/04/2020 Time: 16:04 Bed 3 Private MD: Diagnosis: Chest pain, unspecified;Persistent atrial fibrillation-with RVR;Dementia in other diseases classified elsewhere Presentation: 12/04 16:05 Chief complaint: EMS states: called out by spouse for pt having left sided chest pain. sv Pt is to be admitted to [facility] tomorrow but spouse said he was having CP. BP 91/62 HR-75 98% RA. Spouse reports he had a MT last week. Onset of symptoms was December 04, 2020. 16:05 Method Of Arrival: EMS: [facility] sv 16:05 Acuity: GENESIS 3 sv 16:24 Coronavirus screen: Client denies travel out of the [place] in the last 14 days. At this jl7 time, the client does not indicate any symptoms associated with coronavirus-19. Ebola Screen: No symptoms or risks identified at this time. Initial Sepsis Screen: Does the patient meet any 2 criteria? No. Patient's initial sepsis screen is negative. Does the patient have a suspected source of infection? No. Patient's initial sepsis screen is negative. Risk Assessment: Do you want to hurt yourself or someone else? Patient reports no desire to harm self or others. Historical: - Allergies: 16:07 No Known Allergies; sv - PMHx: 16:07 Alzheimers; Hypertension; Hyperlipidemia; Gout; CVA; Myocardial infarction; sv - PSHx: 16:07 Hernia repair; cardiac stents; sv - Immunization history:: Adult Immunizations unknown. - Social history:: Smoking status: Patient reports the use of cigarette tobacco products, denies chronic smoking, but will smoke occasionally. - Family history:: not pertinent. - Hospitalizations: : No recent hospitalization is reported. Screenin:09 Abuse screen: Denies threats or abuse. Denies injuries from another. Nutritional jl7 screening: No deficits noted. Tuberculosis screening: No symptoms or risk factors identified. 16:43 Fall Risk Secondary diagnosis (15 points) Alzheimer's, IV access (20 points). Mental jl7 Status- Overestimates/Forgets Limitations (15 pts.). Total Yost Fall Scale indicates High Risk Score (45 or more points). Fall prevention measures have been instituted. Side Rails Up X 2 Placed Close to Nursing Station Frequent Obs/Assessments Occuring As available patient and family educated on Fall Prevention Program and Strategies. Assessment: 16:09 General: Appears in no apparent distress. uncomfortable, Behavior is calm, cooperative. jl7 Pain: Denies pain. Pain does not radiate. Pain began NO PAIN. Neuro: Level of Consciousness is awake, alert, obeys commands, Oriented to person, place, Pupils are pinpoint. Cardiovascular: Patient's skin is warm and dry. Rhythm is sinus tachycardia. Respiratory: Airway is patent Respiratory effort is even, unlabored, Respiratory pattern is regular, symmetrical. Derm: Skin is pink, warm \T\ dry. 19:30 General: Appears in no apparent distress. uncomfortable, Behavior is drowsy. rr5 19:30 Neuro: Level of Consciousness is awake, confused, Oriented to none. Cardiovascular: rr5 Capillary refill < 3 seconds Patient's skin is warm and dry. Respiratory: Airway is patent Respiratory effort is even, unlabored, Respiratory pattern is regular, symmetrical. Derm: Bruising that is dark purple, on right arm and left arm. 20:01 Reassessment: Zulema Ramirez- [phone]. jm8 20:35 Reassessment: spoke to dr virgen on the phone patient is aggressive trying to punch and rr5 kick, getting out on bed and pulling lines. with telephone order made with read back geodon 10 mg IM Q4. 21:30 Reassessment: Patient appears in no apparent distress at this time. side rails secured, rr5 sitter at bedside. 22:30 Reassessment: Patient appears in no apparent distress at this time. No changes from rr5 previously documented assessment. 23:00 Reassessment: Patient appears in no apparent distress at this time. more calm, awake, rr5 not getting out on bed. side rails secured. Vital Signs: 16:24 BP 95 / 82; Pulse 102; Resp 15; Temp 97.9; Pulse Ox 95% ; Pain 0/10; jl7 16:43 BP 103 / 80; Pulse 95; Resp 15; Pulse Ox 96% ; jl7 18:08 BP 107 / 88; Pulse 106; Resp 16; Pulse Ox 95% on R/A; ph 19:00 BP 126 / 89; Pulse 110; Resp 19; Temp 97.5; Pulse Ox 98% ; rr5 20:00 BP 117 / 69; Pulse 85; Resp 17; Pulse Ox 98% ; rr5 21:00 BP 123 / 84; Pulse 80; Resp 17; Pulse Ox 97% ; rr5 21:40 BP 115 / 70; Pulse 95; Resp 16; Pulse Ox 98% ; rr5 23:00 BP 121 / 74; Pulse 75; Resp 15; Pulse Ox 96% ; rr5 Vitals: 18:08 Cardiac Rhythm Assessment Atrial fibrillation. ph ED Course: 16:04 Patient arrived in ED. sv 16:05 Eliz Duarte, RN is Primary Nurse. jl7 16:06 Triage completed. sv 16:07 Sreekanth Deluca MD is Attending Physician. rn 16:08 Arm band placed on. sv 16:09 Patient has correct armband on for positive identification. Bed in low position. Call jl7 light in reach. Side rails up X 1. desk monitor on. Pulse ox on. NIBP on. 16:09 Patient maintains SpO2 saturation greater than 95% on room air. jl7 16:43 Initial lab(s) drawn, by nd, sent to lab. EKG done, by ED staff, reviewed by Sreekanth Deluca MD. Inserted saline lock: 20 gauge in right forearm, using aseptic technique. Blood collected. 16:54 Basic Metabolic Panel Sent. jl7 16:54 CBC with Diff Sent. jl7 17:43 XRAY Chest (1 view) In Process Unspecified. EDMS 18:09 No provider procedures requiring assistance completed. ph 18:31 Luis Paredes DO is Hospitalizing Provider. rn 19:00 Anmol Cam MD is Hospitalizing Provider. rn 19:13 Primary Nurse role handed off by Eliz Duarte RN mw2 19:19 Houston Joel, BOUCHRA is Primary Nurse. rr5 22:15 Patient admitted, IV remains in place. intact, No redness/swelling at site. rr5 Administered Medications: 17:07 Drug: NS 0.9% 250 ml Route: IV; Rate: bolus; Site: right forearm; jl7 18:00 Follow up: Response: No adverse reaction; IV Status: Completed infusion; IV Intake: jl7 250ml 18:43 Drug: Aspirin Chewable Tablet 324 mg Route: PO; jl7 19:40 Follow up: Response: No adverse reaction rr5 18:43 Drug: Sotalol 80 mg Route: PO; jl7 20:45 Follow up: Response: No adverse reaction rr5 19:42 Drug: Ativan (LORazepam) 0.5 mg Route: IVP; Site: right forearm; jm8 20:40 Follow up: Response: No adverse reaction rr5 19:42 Drug: Eliquis (apixaban) 5 mg Route: PO; jm8 20:40 Follow up: Response: No adverse reaction rr5 Intake: 18:00 IV: 250ml; Total: 250ml. jl7 Outcome: 18:32 Decision to Hospitalize by Provider. rn 22:15 Admitted to Med/surg accompanied by tech, room 229, with chart, Report called to rr5 augustjuan miguel 22:15 Condition: stable 22:15 Instructed on the need for admit. 23:05 Patient left the ED. 5 Signatures: Dispatcher [employer] EDMaggie Wesley, RN RN Sreekanth Milner MD MD rn Hall, Patricia RN BOUCHRA Eliz Duarte RN RN jl7 Madelaine Jara 2 Houston Joel RN RN rr5 Kory Wade, RN RN jm8 Corrections: (The following items were deleted from the chart) 16:09 16:05 Chief complaint: EMS states: called out by spouse for pt having left sided chest sv pain. Pt is to be admitted to [facility] tomorrow but spouse said he was having CP. BP 91/62 HR-75 98% RA sv
--- NOTE | 2020-12-04 18:33 | EDPHYS ---
Physician Documentation [facility] Name: Sergio Ramirez Age: 75 yrs Sex: Male : 1945 Arrival Date: 12/04/2020 Time: 16:04 Bed 3 Private MD: ED Physician Sreekanth Deluca HPI: 12/04 16:40 This 75 yrs old Male presents to ER via EMS with complaints of Chest Pain. rn 16:40 The patient or guardian reports chest pain that is located primarily in the anterior rn chest wall, right. Onset: at an unknown time. The pain does not radiate. Associated signs and symptoms: The patient has no apparent associated signs or symptoms, Pertinent negatives: abdominal pain, cough, diaphoresis, shortness of breath, syncope, vomiting. The chest pain is described as unknown. Duration: The patient or guardian reports a single episode, that is now resolved. Modifying factors: The symptoms are alleviated by nothing. the symptoms are aggravated by nothing. Severity of pain: At its worst the pain was mild in the emergency department the pain has resolved. It is unknown whether or not the patient has had similar symptoms in the past. The patient has not recently seen a physician. Per EMS, called 911 for chest pain, couldn't really give more information other than he has had [place] in past. Pt [facility] to [facility], told EMS he has been combative and agitated, she called [facility] for direction, correction allegedly told her to call 911 to bring him here if couldn't handle him. called to say she was on her way but was going to wait until traffic dies down.. Historical: - Allergies: 16:07 No Known Allergies; sv - PMHx: 16:07 Alzheimers; Hypertension; Hyperlipidemia; Gout; CVA; Myocardial infarction; sv - PSHx: 16:07 Hernia repair; cardiac stents; sv - Immunization history:: Adult Immunizations unknown. - Social history:: Smoking status: Patient reports the use of cigarette tobacco products, denies chronic smoking, but will smoke occasionally. - Family history:: not pertinent. - Hospitalizations: : No recent hospitalization is reported. ROS: 16:40 Constitutional: Negative for fever, chills, and weight loss, Eyes: Negative for injury, rn pain, redness, and discharge, Neck: Negative for injury, pain, and swelling, Cardiovascular: Negative for palpitations, and edema, Respiratory: Negative for shortness of breath, cough, wheezing, and pleuritic chest pain, Abdomen/GI: Negative for abdominal pain, nausea, vomiting, diarrhea, and constipation, Back: Negative for injury and pain, : Negative for injury, bleeding, discharge, and swelling, MS/Extremity: Negative for injury and deformity, Skin: Negative for injury, rash, and discoloration, Neuro: Negative for headache, weakness, numbness, tingling, and seizure. Exam: 16:40 Constitutional: Disheveled patient, no acute distress, smiling. Head/Face: rn Normocephalic, atraumatic. Eyes: Periorbital areas with no swelling, redness, or edema. ENT: dry MM Vital Signs: 16:24 BP 95 / 82; Pulse 102; Resp 15; Temp 97.9; Pulse Ox 95% ; Pain 0/10; jl7 16:43 BP 103 / 80; Pulse 95; Resp 15; Pulse Ox 96% ; jl7 18:08 BP 107 / 88; Pulse 106; Resp 16; Pulse Ox 95% on R/A; ph 19:00 BP 126 / 89; Pulse 110; Resp 19; Temp 97.5; Pulse Ox 98% ; rr5 20:00 BP 117 / 69; Pulse 85; Resp 17; Pulse Ox 98% ; rr5 21:00 BP 123 / 84; Pulse 80; Resp 17; Pulse Ox 97% ; rr5 21:40 BP 115 / 70; Pulse 95; Resp 16; Pulse Ox 98% ; rr5 23:00 BP 121 / 74; Pulse 75; Resp 15; Pulse Ox 96% ; rr5 MDM: 16:07 Patient medically screened. rn 18:24 Differential diagnosis: acute myocardial infarction, coronary artery disease congestive international controller failure costochondritis, gastroesophageal reflux disease (GERD), pleurisy, pneumothorax, stable angina, unstable angina. The patient was given aspirin in the Emergency Department. Data reviewed: vital signs, nurses notes, lab test result(s), EKG, radiologic studies, plain films, and as a result, I will admit patient. Counseling: I had a detailed discussion with the patient and/or guardian regarding: the historical points, exam findings, and any diagnostic results supporting the discharge/admit diagnosis, lab results, radiology results, the need for further work-up and treatment in the hospital. Response to treatment: the patient's symptoms have markedly improved after treatment, and as a result, I will admit patient. Admission orders: after a detailed discussion of the patient's condition and case, the admit orders are written by me. ED course: Pt with elevated troponin, no active chest pain, no ischemia on ECG, most likely rate-related given afib with rvr, and CHF, ordered his sotalol, waiting on to arrive as she is concerned for her safety if she take jane home. . 19:01 ED course: Consulted with Dr. Cam, will admit for Afib/rvr and worsening rn dementia/agitation, Dr. Cam requests eliquis 5mg BID.. 12/04 16:21 Order name: CBC with Diff 12/04 16:21 Order name: Basic Metabolic Panel 12/04 16:21 Order name: Protime (+inr); Complete Time: 17:36 12/04 16:21 Order name: Ptt, Activated; Complete Time: 17:36 12/04 16:21 Order name: BNP; Complete Time: 17:36 12/04 16:21 Order name: Troponin (emerg Dept Use Only); Complete Time: 17:36 12/04 16:21 Order name: XRAY Chest (1 view); Complete Time: 18:00 12/04 16:21 Order name: CBC with Automated Diff; Complete Time: 17:36 [facility] 12/04 16:21 Order name: Basic Metabolic Panel; Complete Time: 17:36 [facility] 12/04 20:16 Order name: SARS-COV-2 RT PCR [facility] 12/04 21:37 Order name: Troponin I [facility] 12/04 16:21 Order name: IV Start; Complete Time: 16:42 rn 12/04 16:21 Order name: EKG; Complete Time: 16:22 rn 12/04 16:21 Order name: EKG - Nurse/Tech; Complete Time: 16:42 rn Administered Medications: 17:07 Drug: NS 0.9% 250 ml Route: IV; Rate: bolus; Site: right forearm; jl7 18:00 Follow up: Response: No adverse reaction; IV Status: Completed infusion; IV Intake: jl7 250ml 18:43 Drug: Aspirin Chewable Tablet 324 mg Route: PO; jl7 19:40 Follow up: Response: No adverse reaction rr5 18:43 Drug: Sotalol 80 mg Route: PO; jl7 20:45 Follow up: Response: No adverse reaction rr5 19:42 Drug: Ativan (LORazepam) 0.5 mg Route: IVP; Site: right forearm; jm8 20:40 Follow up: Response: No adverse reaction rr5 19:42 Drug: Eliquis (apixaban) 5 mg Route: PO; jm8 20:40 Follow up: Response: No adverse reaction rr5 Disposition: 12/04/20 18:32 Hospitalization ordered by Anmol Cam for Observation. Preliminary diagnosis are Chest pain, unspecified, Persistent atrial fibrillation - with RVR, Dementia in other diseases classified elsewhere. - Bed requested for Telemetry/MedSurg (observation). - Status is Observation. rr5 - Condition is Stable. - Problem is new. - Symptoms have improved. Signatures: Dispatcher [employer] EDSC Maggie Cantu RN Zulema Peterson RN Sreekanth Monroy MD MD rn Leal, Jahala, RN RN jl7 Houston Joel RN RN rr5 Kory Wade, RN RN jm8 Corrections: (The following items were deleted from the chart) 19:00 17:10 CORONAVIRUS+ ordered. [facility] EDSC 19:00 18:32 Hospitalization Ordered by Luis Paredes DO for Observation. Preliminary rn diagnosis is Chest pain, unspecified; Persistent atrial fibrillation - with RVR. Bed requested for Telemetry/MedSurg (observation). Status is Observation. Condition is Stable. Problem is new. Symptoms have improved. rn 19:02 19:00 12/04/2020 18:32 Hospitalization Ordered by Anmol Cam MD for Observation. rn Preliminary diagnosis is Chest pain, unspecified; Persistent atrial fibrillation - with RVR. Bed requested for Telemetry/MedSurg (observation). Status is Observation. Condition is Stable. Problem is new. Symptoms have improved. rn 21:12 19:02 12/04/2020 18:32 Hospitalization Ordered by Anmol Cam MD for Observation. mw Preliminary diagnosis is Chest pain, unspecified; Persistent atrial fibrillation - with RVR; Dementia in other diseases classified elsewhere. Bed requested for Telemetry/MedSurg (observation). Status is Observation. Condition is Stable. Problem is new. Symptoms have improved. rn 23:05 21:12 12/04/2020 18:32 Hospitalization Ordered by Anmol Cam MD for Observation. rr5 Preliminary diagnosis is Chest pain, unspecified; Persistent atrial fibrillation - with RVR; Dementia in other diseases classified elsewhere. Bed requested for Telemetry/MedSurg (observation). Status is Observation. Condition is Stable. Problem is new. Symptoms have improved. mw
[2020-12-04] MEDS ORDERED: ASPIRIN 81 MG CHEWABLE TABLET ONE (18:54)
[2020-12-04] MEDS ORDERED: SOTALOL HCL 80 MG TAB ONE (18:55)
[2020-12-04] MEDS ORDERED: APIXABAN 5 MG TABLET ONE (19:44)
[2020-12-04] MEDS ORDERED: LORazepam 2 MG/ML VIAL ONE (19:44)
[2020-12-04] MEDS ORDERED: ONDANSETRON 4 MG/2 ML VIAL IV PRN (20:31)
[2020-12-04] MEDS: ZIPRASIDONE MESYLA 20 MG/VIAL IM PRN ×2 (20:44→23:22)
[2020-12-04] MEDS ORDERED: WATER FOR INJ,STERILE 10 ML ONE (20:57)
[2020-12-04] MEDS ORDERED: ZIPRASIDONE MESYLA 20 MG/VIAL IM ONE (20:57)
[2020-12-05 00:06] VITALS: BMI 26.9
[2020-12-05 04:57] LABS: Absolute Lymphocytes (CBC) 2.7 K/uL (0.7-4.9); Basophils % 0.4 % (0-1.3); Hematocrit 42.4 % (39.6-49.0); MPV 6.9 fL (7.6-11.3); RBC Red Blood Cell Count 4.08 M/uL (4.33-5.43)
[2020-12-05] MEDS: SOTALOL HCL 80 MG TAB PO SCH ×2 (05:22→17:43)
[2020-12-05] MEDS: APIXABAN 5 MG TABLET PO SCH ×3 (05:23→19:57)
[2020-12-05] MEDS: ZIPRASIDONE MESYLA 20 MG/VIAL IM PRN ×3 (11:39→23:49)
--- NOTE | 2020-12-05 11:57 | P.SSS ---
Patient History Date of Service: 12/05/20 Reason for admission: AGITATION, CONFUSION. History of Present Illness: MR LORIN HAS ALZ. DISEASE AND HAS MORE AND MORE BEEN AGITATED. IS NOT ABLE TO TAKE CARE OF HIM. SHE BROUGHT HIM TO ER. SHE IS LOOKING AT NH BUT NOT PROCESSED YET. UNTIL AGITATION IS CONTROLLED HE WILL NOT BE READY FOR NH. I AGREE WITH [facility] IF IT IS OPEN AGAIN. HE IS SEDATED WITH GEODON NOW HE HAS SEVERE AGITATION. Allergies No Known Allergies Allergy (Verified 11/29/20 21:08) Home medications list reviewed: Yes Home Medications: Allopurinol 150 mg PO DIRECTED 11/29/20 Aspirin 81 mg PO DAILY 11/29/20 Atorvastatin Calcium 20 mg PO DAILY 11/29/20 Clopidogrel Bisulfate [Plavix*] 75 mg PO DAILY 11/29/20 Donepezil HCl 10 mg PO DAILY 11/29/20 Gabapentin [Neurontin*] 100 mg PO TID 11/29/20 LORazepam [Lorazepam] 0.5 mg PO BEDTIME PRN 11/29/20 Losartan/Hydrochlorothiazide [Losartan-Hctz 100-25 mg Tab] 1 tab PO DAILY 11/29/20 Memantine HCl 10 mg PO BID 11/29/20 Sotalol HCl [Betapace*] 1 tab PO BID 11/29/20 Tamsulosin [Flomax*] 0.4 mg PO BEDTIME 11/29/20 Risperidone [Risperdal] 0.5 mg PO BEDTIME #30 tablet 12/01/20 Trazodone [Desyrel*] 50 mg PO BEDTIME PRN #30 tablet 12/01/20 - Past Medical/Surgical History Diabetic: No -: Gout -: Hyperlipidemia -: Hypertension -: BPH -: Anxiety Disorder -: DEMENTIA -: CVA -: GA -: Cardiac stents -: Hernia Repair - Family History parents History Unknown: Yes Notes: unable to get information from pt: AMS - Social History Smoking Status: Unknown if ever smoked Alcohol use: No CD- Drugs: No Caffeine use: Yes Review of Systems 10-point ROS is otherwise unremarkable General: Weakness Physical Examination - Vital Signs Temperature: 97.2 F Blood Pressure: 159/100 Pulse: 110 Respirations: 20 Pulse Ox (%): 96 - Physical Exam General: Mild distress, Moderate distress, Confused HEENT: Atraumatic, PERRLA, Mucous membr. moist/pink, EOMI, Sclerae nonicteric Neck: Supple, 2+ carotid pulse no bruit, No LAD, Without JVD or thyroid abnormality Respiratory: Clear to auscultation bilaterally, Normal air movement Cardiovascular: Irregular heart rate/rhythm Gastrointestinal: Normal bowel sounds, No tenderness Musculoskeletal: No tenderness Integumentary: No rashes Neurological: Normal gait, Normal speech, Normal strength at 5/5 x4 extr, Normal tone, Normal affect Lymphatics: No axilla or inguinal lymphadenopathy - Studies Laboratory Data (last 24 hrs) 12/05/20 04:21: Sodium 144, Potassium 4.0, BUN 20 H, Creatinine 1.01, Glucose 92 12/05/20 04:21: WBC 10.30 D, Hgb 14.3, Hct 42.4, Plt Count 274 12/05/20 00:24: Troponin I 0.72 H* 12/04/20 20:51: Troponin I 0.91 H* 12/04/20 16:38: PT 12.8 H, INR 1.11, APTT 27.9 12/04/20 16:38: Sodium 142, Potassium 3.9, BUN 22 H, Creatinine 1.16, Glucose 104 12/04/20 16:38: WBC 8.00, Hgb 14.0, Hct 41.4, Plt Count 300 - Diagnosis (Problem(s)) (1) A-fib Current Visit: Yes Status: Chronic Plan: HEART RATE IS GOOD WHEN HE TAKES MEDS. HAS DIFFICULT TIME TO GET HIM TO TAKE MEDS. Qualifiers: Atrial fibrillation type: paroxysmal Qualified Code(s): I48.0 - Paroxysmal atrial fibrillation (2) AMS (altered mental status) Current Visit: No Status: Chronic Plan: DEMENTIA RELATED. (3) Alzheimer's dementia Current Visit: No Status: Chronic Plan: FACILITY IS A GOOD IDEA. [facility] IS NOT WORKING. I CHANGED TO HALDOL AND THIAMINE IV. DR. Walters HAS BEEN CONSULTED. NEEDS NH FOR HIDE PULLER BUT [facility] FOR AGITATION CONTROL FOR NOW. Qualifiers: Alzheimer's disease onset: late-onset (4) Personal history of cerebrovascular accident with residual effects Current Visit: No Status: Acute - Disposition Disposition: ROUTINE DISCHARGE
[2020-12-05] MEDS ORDERED: HALOPERIDOL LACT 5 MG/ML INJ IV PRN (12:03)
[2020-12-05] MEDS: THIAMINE 200 MG/2 ML INJ IVP SCH (12:05)
[2020-12-05] MEDS: ZIPRASIDONE 20 MG CAP PO SCH (19:57)
[2020-12-05] MEDS: DIVALPROEX DR 250 MG TAB PO SCH (19:58)
[2020-12-05] MEDS: WATER FOR INJ,STERILE 10 ML IM PRN ×2 (20:11→23:50)
[2020-12-06] MEDS: SOTALOL HCL 80 MG TAB PO SCH ×3 (06:44→17:53)
--- NOTE | 2020-12-06 07:30 | EKG ---
Test Date: 2020-12-04 Test Time: 16:30:52 Sql Engineer: CORRIE MEASUREMENT RESULTS: Intervals: Rate: 82 HI: QRSD: 106 QT: 372 QTc: 434 Lawrence: P: HI: QRS: -9 T: 156 INTERPRETIVE STATEMENTS: Atrial fibrillation Incomplete left bundle branch block ST & T wave abnormality, consider anterolateral ischemia or digitalis effect Abnormal ECG Compared to ECG 11/29/2020 11:11:00 Left bundle-branch block now present Possible ischemia now present Atrial flutter no longer present T-wave abnormality no longer present ST (T wave) deviation still present Electronically Signed On 12-06-20 07:26:49 CDT by Sherwin Smith
[2020-12-06] MEDS: DIVALPROEX DR 250 MG TAB PO SCH ×4 (09:00→21:00)
[2020-12-06] MEDS: ZIPRASIDONE 20 MG CAP PO SCH ×4 (09:00→21:00)
[2020-12-06] MEDS: APIXABAN 5 MG TABLET PO SCH ×4 (09:00→21:00)
[2020-12-06] MEDS: THIAMINE 200 MG/2 ML INJ IVP SCH ×3 (09:00→16:11)
[2020-12-06] MEDS: ZIPRASIDONE MESYLA 20 MG/VIAL IM PRN (10:25)
[2020-12-06] MEDS: WATER FOR INJ,STERILE 10 ML IM PRN (16:12)
--- NOTE | 2020-12-06 17:46 | P.PN ---
Subjective Date of Service: 12/06/20 Chief Complaint: AGITATION, CONFUSION. Subjective: Improving SEVERE DEMENTIA, AGITATED. HAS BEEN SEDATED WITH GEODON AND DEPAKOT NOW. DR. Walters SAW THE PATIENT FOR PSYCHIATRY. Review of Systems 10-point ROS is otherwise unremarkable Physical Examination - Vital Signs Temperature: 98 F Blood Pressure: 123/68 Pulse: 123 Respirations: 18 Pulse Ox (%): 98 - Physical Exam HEENT: Atraumatic, PERRLA, EOMI Neck: Supple, JVD not distended Respiratory: Clear to auscultation bilaterally, Normal air movement Cardiovascular: Irregular heart rate/rhythm (NO CHANGES.) Gastrointestinal: Normal bowel sounds, No tenderness Musculoskeletal: No tenderness Integumentary: No rashes Neurological: Normal speech, Normal tone, Normal affect Lymphatics: No axilla or inguinal lymphadenopathy - Studies Medications List Reviewed: Yes Assessment And Plan - Current Problems (Diagnosis) (1) A-fib Current Visit: Yes Status: Chronic Plan: HEART RATE IS GOOD WHEN HE TAKES MEDS. HAS DIFFICULT TIME TO GET HIM TO TAKE MEDS. START IV B SHANT UNTIL HE IS ABLE TO TAKE ORAL MEDS. HE IS SEDATED HE IS AGITATED WITH ALZ. DISEASE. Qualifiers: Atrial fibrillation type: paroxysmal Qualified Code(s): I48.0 - Paroxysmal atrial fibrillation (2) AMS (altered mental status) Current Visit: No Status: Chronic Plan: DEMENTIA RELATED. (3) Alzheimer's dementia Current Visit: No Status: Chronic Plan: FACILITY IS A GOOD IDEA. [facility] IS NOT WORKING. I CHANGED TO HALDOL AND THIAMINE IV. DR. Walters HAS BEEN CONSULTED. NEEDS NH FOR SCREW DOWN BUT [facility]YCH FACILITY FOR AGITATION CONTROL FOR NOW. WE ARE WAITING FOR APPROVAL OF [facility]. Qualifiers: Alzheimer's disease onset: late-onset (4) Personal history of cerebrovascular accident with residual effects Current Visit: No Status: Acute
[2020-12-06] MEDS: METOPROLOL TARTRATE 5 MG/5 ML INJ IV SCH ×2 (18:02→23:09)
[2020-12-07] MEDS: SOTALOL HCL 80 MG TAB PO SCH ×2 (04:55→17:26)
[2020-12-07] MEDS: METOPROLOL TARTRATE 5 MG/5 ML INJ IV SCH ×3 (05:00→17:26)
[2020-12-07] MEDS: DIVALPROEX DR 250 MG TAB PO SCH ×2 (07:59→19:42)
[2020-12-07] MEDS: ZIPRASIDONE 20 MG CAP PO SCH ×2 (07:59→19:42)
[2020-12-07] MEDS: APIXABAN 5 MG TABLET PO SCH ×2 (07:59→19:42)
[2020-12-07] MEDS: THIAMINE 200 MG/2 ML INJ IVP SCH (08:00)
--- NOTE | 2020-12-07 12:51 | P.PN ---
Subjective Date of Service: 12/07/20 Chief Complaint: AGITATION, CONFUSION. Subjective: Improving DR. Walters SAW THE PATIENT FOR PSYCHIATRY. HE IS LOT MORE STABLE, COMFORTABLE. HE IS NOT FIGHTING ANY ONE TODAY. HE SHOOK MY HAND AND THANKED ME. HE IS EATING BREAKFAST THIS AM. Review of Systems 10-point ROS is otherwise unremarkable Physical Examination - Vital Signs Temperature: 98.4 F Blood Pressure: 124/88 Pulse: 68 Respirations: 18 Pulse Ox (%): 96 - Physical Exam General: In no apparent distress, Oriented x2 HEENT: Atraumatic, PERRLA, EOMI Neck: Supple, JVD not distended Respiratory: Clear to auscultation bilaterally, Normal air movement Cardiovascular: Regular rate/rhythm, Normal S1 S2 Gastrointestinal: Normal bowel sounds, No tenderness Musculoskeletal: No tenderness Integumentary: No rashes Neurological: Normal speech, Normal tone, Normal affect Lymphatics: No axilla or inguinal lymphadenopathy - Studies Medications List Reviewed: Yes Assessment And Plan - Current Problems (Diagnosis) (1) A-fib Current Visit: Yes Status: Chronic Plan: HEART RATE IS GOOD WHEN HE TAKES MEDS. HAS DIFFICULT TIME TO GET HIM TO TAKE MEDS. START IV B SHANT UNTIL HE IS ABLE TO TAKE ORAL MEDS. HE IS SEDATED HE IS AGITATED WITH ALZ. DISEASE. Qualifiers: Atrial fibrillation type: paroxysmal Qualified Code(s): I48.0 - Paroxysmal atrial fibrillation (2) AMS (altered mental status) Current Visit: No Status: Chronic Plan: DEMENTIA RELATED. (3) Alzheimer's dementia Current Visit: No Status: Chronic Plan: HE IS STABLE ON MEDS. VERY CALM TODAY EATING BF. CAN GO TO [place] IN MY OPINION. Qualifiers: Alzheimer's disease onset: late-onset (4) Personal history of cerebrovascular accident with residual effects Current Visit: No Status: Acute
--- NOTE | 2020-12-07 13:45 | CON ---
Type Of Service: Consult. Reason For Consult: Provide recommendation for agitation and disposition. History Of Present Illness: Mr. Sergio Ramirez is a 75-year-old male with psychiatric history of Alzheimer's dementia with behavioral disturbances who was admitted to [facility] via ER on the November because of severe agitation and combativeness. Prior to the admission, the patient was being cared for at home by the who has since stated she is not able to care for the patient as patient has become very aggressive and difficult to redirect. Further collateral history provided by patient nurses indicates patient continues to be physically aggressive even why on the unit hence requiring prn medications for agitation. No history of depression or psychosis reported. Physical Examination: Vital Signs: Include temperature 98, blood pressure is 123/68, pulse rate 123, respiratory rate is 18, General: The patient is alert male who looks older than stated age, lying in bed, dressed in hospital gown. Not seen in any acute cardiorespiratory distress. Mental status: He is fairly well groomed. Oriented to person only not i any obvious acute distress. Patient is oriented to person only and exhibits paucity of speech. patient was not able to fully participate with this examination due to his cognitive impairment Impression: A 75-year-old male with history of dementia, behavioral disturbance admitted for worsening aggressive behavior Diagnosis ======= Dementia with behavioral disorder Plan: === The patient is started on Depakote 500 mg p.o. b.i.d. for agitation, Geodon 20 mg p.o. b.i.d. for agitation as well. Will recommend transfer to geripsych unit for further stabilization of patients aggressive behavior. ARIEL/MODLeonel Voice ID: [id number] Report ID: [id number]
[2020-12-07 21:50] VITALS: TEMP 97.2
[2020-12-07 22:09] VITALS: O2SAT 97
[2020-12-08] MEDS: METOPROLOL TARTRATE 5 MG/5 ML INJ IV SCH
[2020-12-08 00:04] VITALS: BP 148/94
--- NOTE | 2020-12-14 21:23 | P.DS ---
Admission Date: 12/05/20 Discharge Date: 12/14/20 Disposition: TRANSFR TO OTHER-PSY/CD/REHAB Discharge Condition: FAIR Reason for Admission: AGITATION, CONFUSION. - Problems (1) A-fib Status: Chronic Qualifiers: Atrial fibrillation type: paroxysmal Qualified Code(s): I48.0 - Paroxysmal atrial fibrillation (2) AMS (altered mental status) Status: Chronic (3) Alzheimer's dementia Status: Chronic Qualifiers: Alzheimer's disease onset: late-onset (4) Personal history of cerebrovascular accident with residual effects Status: Acute Brief History of Present Illness: MR PADGETT HAS ALZ. DISEASE AND HAS MORE AND MORE BEEN AGITATED. IS NOT ABLE TO TAKE CARE OF HIM. SHE BROUGHT HIM TO ER. SHE IS LOOKING AT NH BUT NOT PROCESSED YET. UNTIL AGITATION IS CONTROLLED HE WILL NOT BE READY FOR NH. I AGREE WITH [facility] IF IT IS OPEN AGAIN. HE IS SEDATED WITH GEODON NOW HE HAS SEVERE AGITATION. Hospital Course: MR. PADGETT HAS SEVERE ALZHEIMER'S DISEASE AND A FIB. AFTER FEW DAYS HERE HIS AGITATION HAS IMPROVED ON CURRENT MEDS. HIS A FIB IS WELL CONTROLLED WHEN HE COOPERATES TO TAKE MEDS. HE IS ACCEPTED AND TRANSFERRED TO A PSYCH FACILITY FOR FURTHER CONTROL OF ALZ. DISEASE RELATED AGITATION. HE IS MEDICALLY STABLE WITH NO MEDICAL SYMPTOMS AT TRANSFER. Vital Signs/Physical Exam: Temp Pulse Resp BP Pulse Ox 97.2 F 106 H 18 148/94 H 97 12/07/20 20:00 12/08/20 00:00 12/07/20 20:00 12/08/20 00:00 12/07/20 20:00 Laboratory Data at Discharge: WBC 10.30 K/uL (4.3-10.9) D 12/05/20 04:21 Hgb 14.3 g/dL (13.6-17.9) 12/05/20 04:21 Hct 42.4 % (39.6-49.0) 12/05/20 04:21 Plt Count 274 K/uL (152-406) 12/05/20 04:21 PT 12.8 SECONDS (9.5-12.5) H 12/04/20 16:38 INR 1.11 12/04/20 16:38 APTT 27.9 SECONDS (24.3-36.9) 12/04/20 16:38 Sodium 144 mmol/L (136-145) 12/05/20 04:21 Potassium 4.0 mmol/L (3.5-5.1) 12/05/20 04:21 BUN 20 mg/dL (7-18) H 12/05/20 04:21 Creatinine 1.01 mg/dL (0.55-1.3) 12/05/20 04:21 Glucose 92 mg/dL (74-106) 12/05/20 04:21 Troponin I 0.72 ng/mL (0.0-0.045) H* 12/05/20 00:24 Home Medications: Allopurinol 150 mg PO DIRECTED 11/29/20 Aspirin 81 mg PO DAILY 11/29/20 Atorvastatin Calcium 20 mg PO DAILY 11/29/20 Clopidogrel Bisulfate [Plavix*] 75 mg PO DAILY 11/29/20 Donepezil HCl 10 mg PO DAILY 11/29/20 Gabapentin [Neurontin*] 100 mg PO TID 11/29/20 LORazepam [Lorazepam] 0.5 mg PO BEDTIME PRN 11/29/20 Losartan/Hydrochlorothiazide [Losartan-Hctz 100-25 mg Tab] 1 tab PO DAILY 11/29/20 Memantine HCl 10 mg PO BID 11/29/20 Sotalol HCl [Betapace*] 1 tab PO BID 11/29/20 Tamsulosin [Flomax*] 0.4 mg PO BEDTIME 11/29/20 Risperidone [Risperdal] 0.5 mg PO BEDTIME #30 tablet 12/01/20 Trazodone [Desyrel*] 50 mg PO BEDTIME PRN #30 tablet 12/01/20 Followup: Anmol Cam MD [Primary Care Provider] -
== END 2020-12-08 01:07 | DRG 57 ==
LOC: ER 15:59 → ERHOLD 19:10 → 2ND 22:19 → OBSVTOIN 12-05 07:50 → 2ND 12-05 14:25
PROVIDERS: ADMIT Internal Medicine; ATTEND Internal Medicine
DX: G30.1 Alzheimer's disease with late onset (principal); F02.81 Dementia in other diseases classified elsewhere, unspecified severity, with behavioral disturbance; I48.0 Paroxysmal atrial fibrillation; I10 Essential (primary) hypertension; E78.5 Hyperlipidemia, unspecified; F17.210 Nicotine dependence, cigarettes, uncomplicated; M10.9 Gout, unspecified; I69.398 Other sequelae of cerebral infarction; I25.2 Old myocardial infarction; R77.8 Other specified abnormalities of plasma proteins; Z95.5 Presence of coronary angioplasty implant and graft; Z79.82 Long term (current) use of aspirin; Z79.02 Long term (current) use of antithrombotics/antiplatelets; Z79.899 Other long term (current) drug therapy; Z20.822 Contact with and (suspected) exposure to COVID-19
CPT/HCPCS: 36415; 71045; 80048; 82947; 83880; 84484; 85025; 85610; 85730; 93005; 96365; 96375; 99285; G0378; J1630; J3411; J3486; J7050; U0003